=== PATIENT | male | born 1965 | race Caucasian/White ===

== ENCOUNTER → 2017-01-03 | Outpatient (CLI) | payer MEDICARE, OTHER, SELFPAY | PROVIDERS: Visit Provider Internal Medicine Nephrology | DX: N18.4 Chronic kidney disease, stage 4 (severe) (principal) | CPT/HCPCS: 36415; 80069; 81001; 82306; 82570; 83970; 84155; 85025; 87086 ==

== ENCOUNTER 2017-06-19 11:40 | Observation (INO) | payer MEDICARE, SELFPAY ==
[2017-06-19 11:41] VITALS: BP 132/79; PULSE 104; RESP 20; TEMP 37.8; O2SAT 97; BMI 40.7
--- NOTE | 2017-06-19 11:51 | XR_ITS ---
XR chest 2V Ordering Physician: Louis Gaytan MD Patient Age: 51 years: Male HISTORY: ITS.REASON: CHEST PAIN TECHNIQUE: 2 view chest COMPARISON :July and August 2014 portable CXR. FINDINGS Although I see no prominent consolidation, does appear to be subtle suspect infiltrate the right infrahilar region, as well as several small patchy area just lateral to the right rudy. With lateral film suspect minor infiltrate and/or atelectasis RML & RLL. Also note mild accentuation of markings at the left perihilar region, infrahilar area. Suspect subtle early infiltrate in these regions. Clinical correlation required. Lung Apices appear clear. Normal pulmonary vascularity. Heart upper normal in size. . prominence of the ascending aorta likely account for the the fullness at the right mediastinum. Is there a history of underlying hypertension. This feature is stable since 2015 CXR. Otherwise, in the soft tissues unremarkable No pleural effusions. No CHF The chest wall unremarkable IMPRESSION: 1. Suspect minimal subtle infiltrate RML and RLL.. Also Possible patchy infiltrate just lateral to the right rudy. 2.\Question very subtle left perihilar/infrahilar infiltrate. Subtle coarsening markings left perihilar region compared to prior study
[2017-06-19 12:19] LABS: Basophils % 0.2 % (0.1-2.0); Eosinophils # 0.1 K/mm3 (0.0-0.4); Eosinophils % 0.8 % (0.1-12.0); Hemoglobin 12.3 g/dL (14.1-18.0); Lymphocytes # 0.9 K/mm3 (0.7-4.5); Lymphocytes % 6.1 K/mm3 (10-50); Mean Corpuscular HGB Conc 33.2 g/dL (31.8-35.4); Mean Corpuscular Hemoglobin 30.1 pg (27.0-31.2); Mean Corpuscular Volume 90.9 fl (80-94); Mean Platelet Volume 8.6 fl (7.4-10.4); Monocytes # 0.5 K/mm3 (0.1-1.0); Monocytes % 3.6 % (1.7-9.3); Neutrophils # 12.4 K/mm3 (1.8-7.8); Neutrophils % 89.3 % (37.0-80.0); Platelet Count 176 K/mm3 (142-424); Red Blood Count 4.07 M/mm3 (4.60-6.20); Red Cell Distribution Width 12.8 % (11.5-17.5); White Blood Count 13.9 K/mm3 (4.8-10.8)
--- NOTE | 2017-06-19 12:20 | HMH.EDCP ---
ED Disposition Clinical Impression: Chronic kidney disease (CKD) Qualifiers: Chronic kidney disease stage: stage 4 (severe) Qualified Code(s): N18.4 - Chronic kidney disease, stage 4 (severe) Chest pain Qualifiers: Chest pain type: precordial pain Qualified Code(s): R07.2 - Precordial pain CAP (community acquired pneumonia) Qualifiers: Laterality: right Lung location: lower lobe of lung Qualified Code(s): J18.1 - Lobar pneumonia, unspecified organism Disposition: Admitted As Inpatient Condition on Discharge: Good - Critical Care Critical Care Time: No Attestation: On 06/19/17, the high probability of a clinically significant, sudden or life threatening deterioration of the following system(s) required my full and direct attention, intervention and personal management. The time I documented below is in addition to time spent performing reported procedures but includes the following listed in this critical care notation. Medical Decision Making Vital Signs: 06/19/17 11:41 06/19/17 13:15 Temperature 100.1 F H 102.9 F H Temperature Source Oral Oral Pulse Rate [Right Brachial] 104 H 110 H Respiratory Rate 20 20 Blood Pressure [Right Arm] 132/79 138/80 Blood Pressure Mean [Right Arm] 96 99 Blood Pressure Source [Right Arm] Automatic Cuff Blood Pressure Position [Right Arm] Supine Sitting 02 Sat by Pulse Oximetry 97 98 Oxygen Delivery Method Room Air Room Air - Lab Data Lab results reviewed: Yes: I reviewed the patient's lab results. Lab Results 06/19/17 11:55: WBC 13.9 H, RBC 4.07 L, Hgb 12.3 L, Hct 37.0 L, MCV 90.9, MCH 30.1, MCHC 33.2, RDW 12.8, Plt Count 176, MPV 8.6, Neut % (Auto) 89.3 H, Lymph % (Auto) 6.1 L, [place] % (Auto) 3.6, Eos % (Auto) 0.8, Baso % (Auto) 0.2, Neut # (Auto) 12.4 H, Lymph # (Auto) 0.9, [place] # (Auto) 0.5, Eos # (Auto) 0.1, Baso # (Auto) 0.0, Total Counted 100, Neutrophils % (Manual) 93 H, Lymphocytes % (Manual) 4 L, Monocytes % (Manual) 2, Eosinophils % (Manual) 1, Platelet Estimate Normal, RBC Morphology Normal 06/19/17 11:55: Sodium 140, Potassium 5.0, Chloride 105, Carbon Dioxide 27, Anion Gap 13.0, BUN 33 H, Creatinine 2.43 H, Estimated Creat Clear 70, Estimated GFR 28 L, Est GFR ( Amer) 34 L, Glucose 331 H, Calcium 8.7, Total Bilirubin 0.3, AST 11 L, ALT 25, Alkaline Phosphatase 118 H, Total Creatine Kinase 126, CK-MB (CK-2) 1.7, CK-MB (CK-2) Rel Index 1.3, Troponin I < 0.02, Total Protein 6.9, Albumin 3.2 L, Globulin 3.7 H, Albumin/Globulin Ratio 0.9 L 06/19/17 11:55: Influenza Type A Ag Negative, Influenza Type B Ag Negative 06/19/17 11:55: PT 9.8, INR 0.91 Result diagrams: 06/19/17 11:55 06/19/17 11:55 Orders (Tests/Meds): ED MEDICATIONS Generic Name Dose Route Start Last Admin Trade Name Freq PRN Reason Stop Dose Admin Azithromycin 500 mg/ Sodium 250 mls @ 250 mls/hr 06/19/17 14:15 Chloride IV 07/19/17 14:14 Q24H JALEN Protocol Ceftriaxone Sodium 1 gm/ 50 mls @ 100 mls/hr 06/19/17 14:15 Sodium Chloride IV 07/19/17 14:14 Q24H JALEN Discontinued Medications Generic Name Dose Route Start Last Admin Trade Name Freq PRN Reason Stop Dose Admin Acetaminophen 650 mg 06/19/17 13:10 06/19/17 13:18 Acetaminophen 325mg Tab PO 06/19/17 13:11 650 mg ONCE ONE Administration ORDERS Category Date Time Status XR chest 2V Stat Exams 06/19/17 11:51 Taken Upper Respiratory Panel, PCR Stat Lab 06/19/17 13:12 Received - Radiology Data #1 Image(s): Chest Image Reviewed: Yes I reviewed the patient's radiology image Preliminary Findings: Abnormal - ECG Data Tracing #1 I reviewed this ECG and interpreted as documented below: Ischemic changes: non-specific ST-T wave changes - Physician Consults Physician Consulted: tobi Reason -: Admission - Yaron Inquiry Pt receiving controlled substance: No Chest Pain HPI - General Chief Complaint: Chest Pain Stated Complaint: CHEST PAIN Time Seen by
[2017-06-19 12:23] LABS: MANUAL DIFFERENTIAL MANUAL DIFFERENTIAL (MANUAL DIFF)
[2017-06-19 12:30] LABS: INR 0.91 (0.9-1.1); Prothrombin Time 9.8 seconds (9.4-11.8)
[2017-06-19 12:43] LABS: Eosinophils % 1 % (0-3); Lymphocytes % 4 % (10-50); Monocytes % 2 % (2-9); Neutrophils % 93 % (42-76); Platelet Estimate Normal; RBC Morphology Normal; Total Cells Counted 100
[2017-06-19 12:58] LABS: Alanine Aminotransferase 25 U/L (12-78); Albumin Level 3.2 gm/dL (3.4-5.0); Albumin/Globulin Ratio 0.9 (1.1-1.8); Alkaline Phosphatase 118 U/L (46-116); Aspartate Amino Transferase 11 U/L (15-37); Bilirubin,Total 0.3 mg/dL (0.2-1.0); Blood Urea Nitrogen 33 mg/dL (7-18); CKMB Relative Index 1.3 U/L (0-4.0); Calcium 8.7 mg/dL (8.5-10.1); Carbon Dioxide 27 mmol/L (21.0-32.0); Chloride 105 mmol/L (98-107); Creatine Kinase 126 U/L (39-308); Creatine Kinase MB 1.7 mg/ml (0.0-3.6); Creatinine Clearance Estimated 70 mL/min (0-300); Creatinine,Serum 2.43 mg/dL (0.70-1.30); Estimated Glomerular Filt Rate 28 ml/min (>60); GFR (African American) 34 ML/MIN (>60); Globulin 3.7 gm/dl (1.3-3.2); Glucose 331 mg/dL (74-106); Sodium 140 mmol/L (136-145); Total Protein,Serum 6.9 gm/dL (6.4-8.2); Troponin I < 0.02 ng/ml (0.00-0.06)
[2017-06-19 13:15] VITALS: BP 138/80; PULSE 110; RESP 20; TEMP 39.4; O2SAT 98
[2017-06-19 13:17] LABS: Adenovirus,PCR Not Detected (NotDetected); Bordetella Pertussis Not Detected (NotDetected); Chlamydophila Pneumoniae, PCR Not Detected (NotDetected); Coronavirus 229E Not Detected (NotDetected); Coronavirus NL63 Not Detected (NotDetected); Coronavirus OC43 Not Detected (NotDetected); Coronovirus HKU1,PCR Not Detected (NotDetected); Human Metapneumovirus Not Detected (NotDetected); Influenza A, PCR Not Detected (NotDetected); Influenza AH1, 2009 Not Detected (NotDetected); Influenza AH1, PCR Not Detected (NotDetected); Influenza AH3,PCR Not Detected (NotDetected); Influenza B, PCR Not Detected (NotDetected); Mycoplasma Pneumoniae, PCR Not Detected (NotDected); Parainfluenza 1, PCR Not Detected (NotDetected); Parainfluenza 2, PCR Not Detected (NotDetected); Parainfluenza 3, PCR Not Detected (NotDetected); Parainfluenza 4, PCR Not Detected (NotDetected); Respiratory Syncytial Virus Not Detected (NotDetected); Rhinovirus/Enterovirus Not Detected (NotDetected)
[2017-06-19 16:05] VITALS: BMI 41.2
[2017-06-19 16:06] VITALS: BP 115/73; PULSE 125; RESP 22; TEMP 38.4; O2SAT 95
--- NOTE | 2017-06-19 16:10 | HMH.HP ---
*Admission Date: 06/19/17 <Whitney Garcia 06/19/17 17:09> *Chief complaint: Chest pain <Whitney Garcia 06/19/17 17:09> *History of present illness: Mr Madden is a 51 year old male with a history of Type 2 DM, DVT, CAD, dilated cardiomyopathy, HTN, Stage 4 CKD, hyperlipidemia and Charcot's joint who presented to [facility] via private vechicle after experiencing mid sternal to right sided severe chest pain about 12 noon today. He was SOB, nauseated and did vomit. He had palpitations as well. The discomfort eased after tylenol and Zofran. He continues to feel nauseated but the pain is much improved. He is restless, thirsty, and generally miserable. He did have a fever of 102 and has received Tylenol for this. He has been started on Zithromax and Ceftin. To note : patient was instructed not to take his Coumadin after experiencing a bleed in the left eye. He did have eye surgery where the blood was aspirated and has a FU appt. He states he has been taking all other meds. He sees cardiology on a regular and Kenny Portillo has been to see him today in the ER. <Whitney Garcia 06/19/17 17:09> [facility] History Medical History: Reports:: Atherosclerotic Heart Disease, BPH, Cardiomyopathy, Congestive Heart Failure, Coronary Artery Disease, Deep Vein Thrombosis, Diabetes Mellitus Type 2, Gastroesophageal Reflux Disease(GERD), Hyperlipidemia, Hypertension, Myocardial Infarction <Whitney Garcia 06/19/17 17:09> Comment: Charcot's joint; recent left eye hemorrhage <Whitney Garcia 06/19/17 17:09> Laterality Cases: Right: Other <Whitney Garcia 06/19/17 17:09> Fractures: No <Whtiney Garcia 06/19/17 17:09> Comment: Orchiectomy; Amputation of the left middle finger 05/03/2012; multiple debridemenst of sacral decubitus; extensive right foot surgery I&D with bone scrapings <Whitney Garcia 06/19/17 17:09> - *Social History Smoking Status: Never smoker <Whitney Garcia - 01/29/18 17:09> Alcohol Intake: never <Whitney Garcia 06/19/17 17:09> Alcohol Intake Frequency:: other <Whitney Garcia 06/19/17 17:09> - Psychiatric History Expresses thoughts of harming self/others: None <Whitney Garcia 06/19/17 17:09> Suicide Plan Description: No Plan <Whitney Garcia 06/19/17 17:09> *Family Hx:: Diabetes, Coronary Artery Disease <Whitney Garcia 06/19/17 17:09> Review of Systems - Constitutional Reports body ache(s), Reports chills, Reports fever(s), Denies headache(s) <[facility] 06/19/17 17:09> - Eyes Comments: hemorrage in the left eye <Kandi Garciahy 06/19/17 17:09> - ENT Reports dry mouth, Reports headache(s), Denies dizziness, Denies ear pain, Denies sore throat, Denies dizziness <[facility] 06/19/17 17:09> - *Cardiovascular Reports chest pain, Reports chest pain at rest <Kandi Garciahy 06/19/17 17:09> - *Respiratory Reports cough, Reports shortness of breath <Kandi Garciahy 06/19/17 17:09> - *Gastrointestinal Denies abdominal pain, Denies change in bowel habits, Denies constipation <Kandi Garciahy 06/19/17 17:09> - *Genitourinary Reports urinary urgency <Kandi Garciahy 06/19/17 17:09> - *Musculoskeletal Reports abnormal walking <Kandi Garciahy 06/19/17 17:09> - Integumentary/Breasts Comments: discoloration of left side of face <[facility] 06/19/17 17:09> - *Neurologic Denies dizziness, Denies seizure-like activity <Kandi Garciahy 06/19/17 17:09> Meds Home Medications Medication Instructions Recorded Confirmed Type aspirin 81 mg tablet,delayed 81 mg PO QDAY 05/23/17 06/19/17 History release carvedilol 25 mg tablet 12.5 mg PO BID 05/23/17 06/19/17 History cholecalciferol (vitamin D3) 1,000 1,000 unit PO DAILY cap 05/23/17 06/19/17 History unit capsule clopidogrel 75 mg tablet 75 mg PO QDAY 05/23/17 06/19/17 History furosemide 40 mg tablet 40 mg PO QDAY 05/23/17 06/19/17 History gabapentin 300 mg capsule 300 mg PO TID 05/23/17 06/19/17 History insulin lispro 100 unit/mL 1
--- NOTE | 2017-06-19 16:21 | P.HP_ITS ---
*Admission Date: 06/19/17 <Whitney Garcia 06/19/17 17:09> *Chief complaint: Chest pain <Whitney Garcia 06/19/17 17:09> *History of present illness: Mr Madden is a 51 year old male with a history of Type 2 DM, DVT, CAD, dilated cardiomyopathy, HTN, Stage 4 CKD, hyperlipidemia and Charcot's joint who presented to [facility] via private vechicle after experiencing mid sternal to right sided severe chest pain about 12 noon today. He was SOB, nauseated and did vomit. He had palpitations as well. The discomfort eased after tylenol and Zofran. He continues to feel nauseated but the pain is much improved. He is restless, thirsty, and generally miserable. He did have a fever of 102 and has received Tylenol for this. He has been started on Zithromax and Ceftin. To note : patient was instructed not to take his Coumadin after experiencing a bleed in the left eye. He did have eye surgery where the blood was aspirated and has a FU appt. He states he has been taking all other meds. He sees cardiology on a regular and Kenny Portillo has been to see him today in the ER. <Whitney Garcia 06/19/17 17:09> [facility] History Medical History: Reports:: Atherosclerotic Heart Disease, BPH, Cardiomyopathy, Congestive Heart Failure, Coronary Artery Disease, Deep Vein Thrombosis, Diabetes Mellitus Type 2, Gastroesophageal Reflux Disease(GERD), Hyperlipidemia , Hypertension, Myocardial Infarction <Whitney Garcia 06/19/17 17:09> Comment: Charcot's joint; recent left eye hemorrhage <Whitney Garcia 17:09> Laterality Cases: Right: Other <Whitney Garcia 06/19/17 17:09> Fractures: No <Whitney Garcia 06/19/17 17:09> Comment: Orchiectomy; Amputation of the left middle finger 05/03/2012; multiple debridemenst of sacral decubitus; extensive right foot surgery I&D with bone scrapings <Whitney Garcia 06/19/17 17:09> - *Social History Smoking Status: Never smoker <Whitney Garcia - 01/29/18 17:09> Alcohol Intake: never <Whitney Garcia 06/19/17 17:09> Alcohol Intake Frequency:: other <Whitney Garcia 06/19/17 17:09> - Psychiatric History Expresses thoughts of harming self/others: None <Whitney Garcia 06/19/17 17: 09> Suicide Plan Description: No Plan <Whitney Garcia 06/19/17 17:09> *Family Hx:: Diabetes, Coronary Artery Disease <Whitney Garcia 06/19/17 17:09 > Review of Systems - Constitutional Reports body ache(s), Reports chills, Reports fever(s), Denies headache(s) < Whitney Garcia 06/19/17 17:09> - Eyes Comments: hemorrage in the left eye <Kandi Garciahy 06/19/17 17:09> - ENT Reports dry mouth, Reports headache(s), Denies dizziness, Denies ear pain, Denies sore throat, Denies dizziness <[facility] 06/19/17 17:09> - *Cardiovascular Reports chest pain, Reports chest pain at rest <Kandi Garciahy 06/19/17 17:09 > - *Respiratory Reports cough, Reports shortness of breath <Kandi Garciahy 06/19/17 17:09> - *Gastrointestinal Denies abdominal pain, Denies change in bowel habits, Denies constipation < Kandi Garciahy 06/19/17 17:09> - *Genitourinary Reports urinary urgency <Kandi Garciahy 06/19/17 17:09> - *Musculoskeletal Reports abnormal walking <Kandi Garciahy 06/19/17 17:09> - Integumentary/Breasts Comments: discoloration of left side of face <[facility] 06/19/17 17:09> - *Neurologic Denies dizziness, Denies seizure-like activity <Kandi Garciahy 06/19/17 17:09 > Meds Home Medications Medication Instructions Recorded Confirmed Type aspirin 81 mg tablet,delayed 81 mg PO QDAY 05/23/17 06/19/17 History release
[2017-06-19 18:58] VITALS: O2SAT 97
[2017-06-19 20:00] VITALS: BP 145/93; PULSE 110; TEMP 39.3; O2SAT 94
--- NOTE | 2017-06-19 21:19 | PC.NURSE ---
reported patients temp. to the nurse
[2017-06-19 22:20] VITALS: PULSE 105; PULSE 107
[2017-06-20] VITALS (9 sets, daily range): BP systolic 126–138; BP diastolic 63–72; PULSE 83–106; RESP 18–20; TEMP 36.7–37.2; O2SAT 91
[2017-06-20 04:39] LABS: POC Glucose,Bedside 360 mg/dL
[2017-06-20 04:39] LABS: POC Glucose,Bedside 266 mg/dL
--- NOTE | 2017-06-20 05:02 | PC.NURSE ---
PATIENT HAS HAD A FEVER MOST OF THIS SHIFT. TYLENOL GIVEN APPROXIMATELY Q2H. TEMP NEVER WENT BELOW 101. BUT NOT ABOVE 102.8. ICE PACK APPLIED BEHIND NECK AND UNDER ARMPITS AND TEMP DECREASED IN ROOM. PATIENT ALERT AND ABLE TO ANSWER QUESTIONS. MOTHER AT BEDSIDE. NO ACUTE CHANGES SO FAR THIS SHIFT. WILL CONTINUE TO MONITOR. CALL LIGHT IN REACH.
[2017-06-20 07:24] LABS: Basophils # 0.1 K/mm3 (0-0.2); Basophils % 0.3 % (0.1-2.0); Eosinophils # 0.1 K/mm3 (0.0-0.4); Eosinophils % 0.3 % (0.1-12.0); Hematocrit 33.4 % (42.0-52.0); Lymphocytes # 1.6 K/mm3 (0.7-4.5); Lymphocytes % 8.7 K/mm3 (10-50); Mean Corpuscular HGB Conc 32.6 g/dL (31.8-35.4); Mean Corpuscular Volume 91.9 fl (80-94); Mean Platelet Volume 8.5 fl (7.4-10.4); Monocytes # 0.6 K/mm3 (0.1-1.0); Monocytes % 3.3 % (1.7-9.3); Neutrophils # 16.1 K/mm3 (1.8-7.8); Neutrophils % 87.4 % (37.0-80.0); Platelet Count 158 K/mm3 (142-424); Red Blood Count 3.63 M/mm3 (4.60-6.20); Red Cell Distribution Width 12.9 % (11.5-17.5); White Blood Count 18.4 K/mm3 (4.8-10.8)
[2017-06-20 07:28] LABS: Anion Gap 12.4 mEq/L (5-15); Blood Urea Nitrogen 40 mg/dL (7-18); Carbon Dioxide 25 mmol/L (21.0-32.0); Chloride 107 mmol/L (98-107); Creatinine Clearance Estimated 54 mL/min (0-300); Creatinine,Serum 3.23 mg/dL (0.70-1.30); Estimated Glomerular Filt Rate 20 ml/min (>60); GFR (African American) 25 ML/MIN (>60); Glucose 240 mg/dL (74-106); INR 1.01 (0.9-1.1); Potassium 4.4 mmoL/L (3.5-5.1); Prothrombin Time 10.9 seconds (9.4-11.8); Sodium 140 mmol/L (136-145)
[2017-06-20 07:33] LABS: MANUAL DIFFERENTIAL MANUAL DIFFERENTIAL (MANUAL DIFF)
--- NOTE | 2017-06-20 08:45 | HMH.ACPN2 ---
Internal Medicine - PN: Subj *Date: 06/20/17 *Time: 11:39 Interval history: Patient had fever until around 4 am this morning, has had little to no UOP. Exam Vital signs and Labs for Last 24 Hours: Temp Pulse Resp BP Pulse Ox 98.1 F 93 H 20 135/66 91 L 06/20/17 04:00 06/20/17 06:01 06/20/17 04:00 06/20/17 04:00 06/20/17 04:00 Laboratory Results - last 24 hr 06/19/17 17:36: POC Glucose 360 06/19/17 20:30: POC Glucose 266 06/20/17 06:50: PT 10.9, INR 1.01 06/20/17 06:50: Sodium 140, Potassium 4.4, Chloride 107, Carbon Dioxide 25, Anion Gap 12.4, BUN 40 H, Creatinine 3.23 H D, Estimated Creat Clear 54, Estimated GFR 20 L, Est GFR ( Amer) 25 L D, Glucose 240 H D 06/20/17 07:00: WBC 18.4 H D, RBC 3.63 L, Hct 33.4 L, MCV 91.9, MCH 30.0, MCHC 32.6, RDW 12.9, Plt Count 158, MPV 8.5, Neut % (Auto) 87.4 H, Lymph % (Auto) 8.7 L, [place] % (Auto) 3.3, Eos % (Auto) 0.3, Baso % (Auto) 0.3, Neut # (Auto) 16.1 H, Lymph # (Auto) 1.6, [place] # (Auto) 0.6, Eos # (Auto) 0.1, Baso # (Auto) 0.1 Vital Signs Temp Pulse Pulse Resp BP Pulse Ox 06/20/17 06:01 91 H 06/20/17 04:00 98.1 F 106 H 20 135/66 91 L 06/19/17 22:20 105 H 06/19/17 20:00 102.8 F H 110 H 145/93 94 L 06/19/17 18:58 97 06/19/17 16:06 101.2 F H 125 H 22 115/73 95 06/19/17 13:15 102.9 F H 110 H 20 138/80 98 06/19/17 11:41 100.1 F H 104 H 20 132/79 97 Intake and Output 06/19/17 06/20/17 06/20/17 19:59 03:59 11:59 Intake Total 1000 / 1000 1398 / 1398 Balance 1000 / 1000 1398 / 1398 Intake: Intake, Oral Amount 1000 / 1000 240 / 240 Intake, Total IV Amount 1158 / 1158 Ceftriaxone Sodium 1 gm In 0.9 1158 / 1158 % Sodium Chloride 50 ml @ 100 mls/hr IV DAILY [facility] Rx#: [id number] Other: Number of Voids 0 Weight 312 lb 9 oz Patient Weight 06/20/17 11:59 Weight 312 lb 9 oz I & O for Last 24 hours: Intake & Output 06/17/17 06/18/17 06/19/17 06/20/17 11:59 11:59 11:59 11:59 Intake Total 2398 / 2398 Balance 2398 / 2398 Weight 312 lb 9 oz - Constitutional no acute distress (sleeping) - *Routine Respiratory Exam Present: diminished air movement (in bases, clear anteriorly) - *Routine Cardiovascular Exam Present: RRR, tachycardia Assessment and Plan (1) Acute febrile illness Current visit: Yes Status: Acute Category: Medical Code(s): R50.9 - Fever, unspecified (2) CAP (community acquired pneumonia) Current visit: Yes Status: Acute Qualifiers: Laterality: right Lung location: lower lobe of lung Qualified Code(s): J18.1 - Lobar pneumonia, unspecified organism Category: Medical Code(s): J18.9 - Pneumonia, unspecified organism (3) Type 2 diabetes mellitus Current visit: Yes Status: Chronic Category: Medical Code(s): E11.9 - Type 2 diabetes mellitus without complications (4) HTN (hypertension) Current visit: Yes Status: Chronic Category: Medical Code(s): I10 - Essential (primary) hypertension (5) Chest pain Current visit: Yes Status: Acute Qualifiers: Chest pain type: precordial pain Qualified Code(s): R07.2 - Precordial pain Category: Medical Code(s): R07.9 - Chest pain, unspecified (6) Chronic kidney disease (CKD) Current visit: Yes Status: Chronic Qualifiers: Chronic kidney disease stage: stage 4 (severe) Qualified Code(s): N18.4 - Chronic kidney disease, stage 4 (severe) Category: Medical Code(s): N18.9 - Chronic kidney disease, unspecified (7) CAD (coronary artery disease) Current visit: No Status: Chronic Qualifiers: Coronary Disease-Associated Artery/Lesion type: [place] artery [place] vs. transplanted heart: [place] heart Associated angina: without angina Qualified Code(s): I25.10 - Atherosclerotic heart disease of [place] coronary artery without angina pectoris Category: Medical Code(s): I25.10 - Atheroscleroti
--- NOTE | 2017-06-20 08:48 | P.PN_ITS ---
Internal Medicine - PN: Subj *Date: 06/20/17 *Time: 11:39 Interval history: Patient had fever until around 4 am this morning, has had little to no UOP. Exam Vital signs and Labs for Last 24 Hours: Temp Pulse Resp BP Pulse Ox 98.1 F 93 H 20 135/66 91 L 06/20/17 04:00 06/20/17 06:01 06/20/17 04:00 06/20/17 04:00 06/20/17 04:00 Laboratory Results - last 24 hr 06/19/17 17:36: POC Glucose 360 06/19/17 20:30: POC Glucose 266 06/20/17 06:50: PT 10.9, INR 1.01 06/20/17 06:50: Sodium 140, Potassium 4.4, Chloride 107, Carbon Dioxide 25, Anion Gap 12.4, BUN 40 H, Creatinine 3.23 H D, Estimated Creat Clear 54, Estimated GFR 20 L, Est GFR ( Amer) 25 L D, Glucose 240 H D 06/20/17 07:00: WBC 18.4 H D, RBC 3.63 L, Hct 33.4 L, MCV 91.9, MCH 30.0, MCHC 32.6, RDW 12.9, Plt Count 158, MPV 8.5, Neut % (Auto) 87.4 H, Lymph % (Auto) 8.7 L, [place] % (Auto) 3.3, Eos % (Auto) 0.3, Baso % (Auto) 0.3, Neut # (Auto) 16.1 H, Lymph # (Auto) 1.6, [place] # (Auto) 0.6, Eos # (Auto) 0.1, Baso # (Auto) 0.1 Vital Signs Temp Pulse Pulse Resp BP Pulse Ox 06/20/17 06:01 91 H 06/20/17 04:00 98.1 F 106 H 20 135/66 91 L 06/19/17 22:20 105 H 06/19/17 20:00 102.8 F H 110 H 145/93 94 L 06/19/17 18:58 97 06/19/17 16:06 101.2 F H 125 H 22 115/73 95 06/19/17 13:15 102.9 F H 110 H 20 138/80 98 06/19/17 11:41 100.1 F H 104 H 20 132/79 97 Intake and Output 06/19/17 06/20/17 06/20/17 19:59 03:59 11:59 Intake Total 1000 / 1000 1398 / 1398 Balance 1000 / 1000 1398 / 1398 Intake: Intake, Oral Amount 1000 / 1000 240 / 240 Intake, Total IV Amount 1158 / 1158 Ceftriaxone Sodium 1 gm In 0.9 1158 / 1158 % Sodium Chloride 50 ml @ 100 mls/hr IV DAILY [facility] Rx#: [id number] Other: Number of Voids 0 Weight 312 lb 9 oz Patient Weight 06/20/17 11:59 Weight 312 lb 9 oz I & O for Last 24 hours: Intake & Output 06/17/17 06/18/17 06/19/17 06/20/17 11:59 11:59 11:59 11:59 Intake Total 2398 / 2398 Balance 2398 / 2398 Weight 312 lb 9 oz - Constitutional no acute distress (sleeping) - *Routine Respiratory Exam Present: diminished air movement (in bases, clear anteriorly) - *Routine Cardiovascular Exam Present: RRR, tachycardia Assessment and Plan (1) Acute febrile illness Current visit: Yes Status: Acute Category: Medical Code(s): R50.9 - Fever , unspecified (2) CAP (community acquired pneumonia) Current visit: Yes Status: Acute Qualifiers: Laterality: right Lung location: lower lobe of lung Qualified Code(s): J18.1 - Lobar pneumonia, unspecified organism Category: Medical Code(s): J18.9 - Pneumonia, unspecified organism (3) Type 2 diabetes mellitus Current visit: Yes Status: Chronic Category: Medical Code(s): E11.9 - Type 2 diabetes mellitus without complications (4) HTN (hypertension) Current visit: Yes Status: Chronic Category: Medical Code(s): I10 - Essential (primary) hypertension (5) Chest pain Current visit: Yes Status: Acute Qualifiers: Chest pain type: precordial pain Qualified Code(s): R07.2 - Precordial pain Category: Medical Co
--- NOTE | 2017-06-20 09:30 | P.CONPHA_ITS ---
[facility] Pharmacy VTE Monitoring - Patient Demographics Admission date: 06/19/17 Report Date: 06/20/17 Time: 09:29 Allergies/Adverse Reactions: Patient Allergies Sulfa (Sulfonamide Antibiotics) Allergy (Unknown, Verified 06/19/17 13:18) Height: 1.85 m Weight: 141.776 kg Patient Problems: Current Active Problems Chest pain (Acute) CAP (community acquired pneumonia) (Acute) Type 2 diabetes mellitus (Chronic) HTN (hypertension) (Chronic) Acute febrile illness (Acute) Non-compliance (Acute) Subtherapeutic international normalized ratio (INR) (Acute) Chronic kidney disease (CKD) (Chronic) - VTE Risk Labs: VTE Related Lab Results Hgb 12.3 g/dL (14.1-18.0) L 06/19/17 11:55 Hct 33.4 % (42.0-52.0) L 06/20/17 07:00 Plt Count 158 K/mm3 (142-424) 06/20/17 07:00 PT 10.9 seconds (9.4-11.8) 06/20/17 06:50 INR 1.01 (0.9-1.1) 06/20/17 06:50 BUN 40 mg/dL (7-18) H 06/20/17 06:50 Creatinine 3.23 mg/dL (0.70-1.30) H D 06/20/17 06:50 Estimated Creat Clear 54 mL/min (0-300) 06/20/17 06:50 VTE Score: 5 VTE Risk Level: Low Risk - Prophylaxis VTE Prophylaxis Ordered?: Yes Types of VTE Prophylaxis: TEDS Knee High, Pharmacological Location of Applied Device: Bilateral Lower Extremeties Pharmacologic Type: Enoxaparin - VTE Diagnosis Confirmed Treatment or plan recommended: Continue Current Treatment
--- NOTE | 2017-06-20 10:27 | PC.NURSE ---
called dr britton at this time to verify ns @250ml/hr for kardex sats LR @100 and mar shows that the ns @ 250 is charted as 100ml/hr md states fluids are to be running at 250ml.hr
[2017-06-20 10:44] LABS: Lymphocytes % 6 % (10-50); Monocytes % 2 % (2-9); Neutrophils % 86 % (42-76); Platelet Estimate Normal; Total Cells Counted 100
[2017-06-20 10:50] LABS: Hemoglobin 10.9 g/dL (14.1-18.0)
[2017-06-20 11:57] LABS: POC Glucose,Bedside 219 mg/dL
--- NOTE | 2017-06-20 14:57 | PC.NURSE ---
Addendum entered by Aranza Cooley RN 06/20/17 15:01: heart rhythm is regular. Original Note: pt awakens from sleep and reports that it feels like his heart is racing. vs are as follows: BP- 115/52. pulse- 104-107bpm, RR-22, o2 sat- 94% and temp- 99.3 states the feeling has stopped now.
--- NOTE | 2017-06-20 15:21 | PC.NURSE ---
PT STABLE. REPORTS FEELING BAD. LOW GRADE FEVER AT THIS TIME. CONSTANTLY ASKS FOR CHEESEBURGERS AND SANDWICHES AND JELLO. EDUCATED ON THE IMPORTANCE OF STICKING TO A DIABETIC DIET. REMINDED THAT HE IS ON A STRICT CALORIE COUNT DIET HERE AT THE HOSPITAL.
[2017-06-20 21:56] LABS: POC Glucose,Bedside 307 mg/dL
--- NOTE | 2017-06-20 22:11 | PC.NURSE ---
pt told nurse he was going to take bath soon at 22:00
[2017-06-21] VITALS (9 sets, daily range): BP systolic 142–180; BP diastolic 65–93; PULSE 82–94; RESP 18–22; TEMP 36.6–36.9; O2SAT 92–96; BMI 43.9
--- NOTE | 2017-06-21 00:27 | PC.NURSE ---
pt has xavier hose off at this time
[2017-06-21 01:46] LABS: POC Glucose,Bedside 389 mg/dL
[2017-06-21 01:46] LABS: POC Glucose,Bedside 270 mg/dL
--- NOTE | 2017-06-21 04:03 | PC.NURSE ---
PATIENT LAYING IN BED RESTING AT THIS TIME. DENIES SOA, STATES STOMACH AND CHEST SORE FROM COUGHING. HAS SOME NAUSEA. RESOLVED WITH ZOFRAN. HAD A BATH THIS SHIFT. IV IS PATENT AND LABELED.LUNGS HAVE FINE CRACKLES IN R BASE. RESP EVEN AND NONLABORED. HAS PANKAJ UP TO RESTROOM SEVERAL TIMES. FAMILY IS IN ROOM. STATES HAS NO NEEDS AT THIS TIME. BED LOCKED IN LOW POSITION, SIDE RALES UP X 2. CALL LIGHT WITHIN REACH.
[2017-06-21 06:59] LABS: POC Glucose,Bedside 216 mg/dL
--- NOTE | 2017-06-21 08:06 | HMH.ACPN2 ---
<María Elena Grijalva - Last Filed: 06/21/17 08:06> Internal Medicine - PN: Subj *Date: 06/21/17 *Time: 08:06 Interval history: States he is feeling slightly better this morning. He still has a cough and is short of breath. He denies any pain. He slept off and on and ate some of his breakfast. States food just does not taste good. Exam Vital signs and Labs for Last 24 Hours: Temp Pulse Resp BP Pulse Ox 98.1 F 94 H 20 159/80 92 L 06/21/17 07:59 06/21/17 07:59 06/21/17 07:59 06/21/17 07:59 06/21/17 07:59 Laboratory Results - last 24 hr 06/20/17 05:33: POC Glucose 219 06/20/17 07:00: Hgb 10.9 L D, Total Counted 100, Neutrophils % (Manual) 86 H, Band Neutrophils % 4.0, Lymphocytes % (Manual) 6 L, Atypical Lymphs % 2.0, Monocytes % (Manual) 2, Platelet Estimate Normal 06/20/17 12:09: POC Glucose 389 06/20/17 17:17: POC Glucose 270 06/20/17 21:15: POC Glucose 307 06/21/17 06:10: POC Glucose 216 I & O for Last 24 hours: Intake & Output 06/18/17 06/19/17 06/20/17 06/21/17 11:59 11:59 11:59 11:59 Intake Total 2758 / 2758 7529 / 7529 Balance 2758 / 2758 7529 / 7529 Weight 312 lb 9 oz 331 lb Microbiology Reports for the Last 24 Hours: Microbiology 06/19/17 17:20 Blood Blood Culture - Preliminary NO GROWTH AFTER 24 HOURS 06/19/17 17:20 Blood Blood Culture - Preliminary NO GROWTH AFTER 24 HOURS - Constitutional no acute distress - *Routine Respiratory Exam Present: rales (right base), wheezes - *Routine Cardiovascular Exam Present: RRR - *Routine Abdominal Exam Present: soft, normoactive bowel sounds. Absent: tenderness - *Routine Extremities Exam Present: edema Assessment and Plan (1) Acute febrile illness Current visit: Yes Status: Acute Category: Medical Code(s): R50.9 - Fever, unspecified (2) CAP (community acquired pneumonia) Current visit: Yes Status: Acute Qualifiers: Laterality: right Lung location: lower lobe of lung Qualified Code(s): J18.1 - Lobar pneumonia, unspecified organism Category: Medical Code(s): J18.9 - Pneumonia, unspecified organism (3) Type 2 diabetes mellitus Current visit: Yes Status: Chronic Category: Medical Code(s): E11.9 - Type 2 diabetes mellitus without complications (4) HTN (hypertension) Current visit: Yes Status: Chronic Category: Medical Code(s): I10 - Essential (primary) hypertension (5) Chest pain Current visit: Yes Status: Acute Qualifiers: Chest pain type: precordial pain Qualified Code(s): R07.2 - Precordial pain Category: Medical Code(s): R07.9 - Chest pain, unspecified (6) Chronic kidney disease (CKD) Current visit: Yes Status: Chronic Qualifiers: Chronic kidney disease stage: stage 4 (severe) Qualified Code(s): N18.4 - Chronic kidney disease, stage 4 (severe) Category: Medical Code(s): N18.9 - Chronic kidney disease, unspecified (7) CAD (coronary artery disease) Current visit: No Status: Chronic Qualifiers: Coronary Disease-Associated Artery/Lesion type: [place] artery [place] vs. transplanted heart: [place] heart Associated angina: without angina Qualified Code(s): I25.10 - Atherosclerotic heart disease of [place] coronary artery without angina pectoris Category: Medical Code(s): I25.10 - Atherosclerotic heart disease of [place] coronary artery without angina pectoris (8) Cardiomyopathy Current visit: No Status: Chronic Qualifiers: Cardiomyopathy type: dilated Qualified Code(s): I42.0 - Dilated cardiomyopathy Category: Medical Code(s): I42.9 - Cardiomyopathy, unspecified (9) Charcot's joint Current visit: No Status: Chronic Category: Medical Code(s): M14.60 - Charcot's joint, unspecified site (10) HHD (hypertensive heart disease) Current visit: No Status: Chronic Qualifiers: Heart failure presence: without heart failure
--- NOTE | 2017-06-21 08:09 | P.PN_ITS ---
<María Elena Grijalva - Last Filed: 06/21/17 08:06> Internal Medicine - PN: Subj *Date: 06/21/17 *Time: 08:06 Interval history: States he is feeling slightly better this morning. He still has a cough and is short of breath. He denies any pain. He slept off and on and ate some of his breakfast. States food just does not taste good. Exam Vital signs and Labs for Last 24 Hours: Temp Pulse Resp BP Pulse Ox 98.1 F 94 H 20 159/80 92 L 06/21/17 07:59 06/21/17 07:59 06/21/17 07:59 06/21/17 07:59 06/21/17 07:59 Laboratory Results - last 24 hr 06/20/17 05:33: POC Glucose 219 06/20/17 07:00: Hgb 10.9 L D, Total Counted 100, Neutrophils % (Manual) 86 H, Band Neutrophils % 4.0, Lymphocytes % (Manual) 6 L, Atypical Lymphs % 2.0, Monocytes % (Manual) 2, Platelet Estimate Normal 06/20/17 12:09: POC Glucose 389 06/20/17 17:17: POC Glucose 270 06/20/17 21:15: POC Glucose 307 06/21/17 06:10: POC Glucose 216 I & O for Last 24 hours: Intake & Output 06/18/17 06/19/17 06/20/17 06/21/17 11:59 11:59 11:59 11:59 Intake Total 2758 / 2758 7529 / 7529 Balance 2758 / 2758 7529 / 7529 Weight 312 lb 9 oz 331 lb Microbiology Reports for the Last 24 Hours: Microbiology 06/19/17 17:20 Blood Blood Culture - Preliminary NO GROWTH AFTER 24 HOURS 06/19/17 17:20 Blood Blood Culture - Preliminary NO GROWTH AFTER 24 HOURS - Constitutional no acute distress - *Routine Respiratory Exam Present: rales (right base), wheezes - *Routine Cardiovascular Exam Present: RRR - *Routine Abdominal Exam Present: soft, normoactive bowel sounds. Absent: tenderness - *Routine Extremities Exam Present: edema Assessment and Plan (1) Acute febrile illness Current visit: Yes Status: Acute Category: Medical Code(s): R50.9 - Fever , unspecified (2) CAP (community acquired pneumonia) Current visit: Yes Status: Acute Qualifiers: Laterality: right Lung location: lower lobe of lung Qualified Code(s): J18.1 - Lobar pneumonia, unspecified organism Category: Medical Code(s): J18.9 - Pneumonia, unspecified organism (3) Type 2 diabetes mellitus Current visit: Yes Status: Chronic Category: Medical Code(s): E11.9 - Type 2 diabetes mellitus without complications (4) HTN (hypertension) Current visit: Yes Status: Chronic Category: Medical Code(s): I10 - Essential (primary) hypertension (5) Chest pain Current visit: Yes Status: Acute Qualifiers: Chest pain type: precordial pain Qualified Code(s): R07.2 - Precordial pain Category: Medical Code(s): R07.9 - Chest pain, unspecified (6) Chronic kidney disease (CKD) Current visit: Yes Status: Chronic Qualifiers: Chronic kidney disease stage: stage 4 (severe) Qualified Code(s): N18.4 - Chronic kidney disease, stage 4 (severe) Category: Medical Code(s): N18.9 - Chronic kidney disease, unspecified (7) CAD (coronary artery disease) Current visit: No Status: Chronic Qualifiers: Coronary Disease-Associated Artery/Lesion type: [place] artery [place] vs. transplanted heart: [place] heart Associated angina: without angina Qualified Code(s): I25.10 - Atherosclerotic heart disease of [place] coronary artery without angina pectoris Category: Medical Code(s): I25.10 - Atherosclerotic heart disease of [place] coronary artery without angina
[2017-06-21 09:23] LABS: Anion Gap 11.3 mEq/L (5-15); Blood Urea Nitrogen 35 mg/dL (7-18); Carbon Dioxide 24 mmol/L (21.0-32.0); Chloride 108 mmol/L (98-107); Creatinine Clearance Estimated 36 mL/min (0-300); Creatinine,Serum 2.73 mg/dL (0.70-1.30); Estimated Glomerular Filt Rate 25 ml/min (>60); GFR (African American) 30 ML/MIN (>60); Glucose 276 mg/dL (74-106); Potassium 4.3 mmoL/L (3.5-5.1); Sodium 139 mmol/L (136-145)
[2017-06-21 11:43] LABS: POC Glucose,Bedside 313 mg/dL
--- NOTE | 2017-06-21 16:01 | PC.NURSE ---
Pt sitting on side of bed, has had complaint of GOMES was given Tylenol to help relieve this symptom. VSS, Ambulated to and from bathroom with no assistance. Sputum is still not been collected due to pt not being able to produce sample. Informed pt that this is still needed and he stated that he hasn't had anything up yet but has specimen cup by bedside when sample can be produced. Call light in reach, will continue to monitor
[2017-06-21 16:35] LABS: POC Glucose,Bedside 291 mg/dL
[2017-06-21 20:52] LABS: POC Glucose,Bedside 252 mg/dL
[2017-06-22] VITALS (8 sets, daily range): BP systolic 153–201; BP diastolic 73–104; PULSE 66–102; RESP 20–22; TEMP 37.2–37.8; O2SAT 93–96
--- NOTE | 2017-06-22 04:58 | PC.NURSE ---
SRNA notified RN of BP of 201/104 right arm sitting, manual BP was obtained in the left arm sitting to be 170/90, upon reassessment 3+ pitting edema noted in the BLE, pt states he feels like his right leg is going to explode, per pt request fluids were stopped at this time.
--- NOTE | 2017-06-22 05:40 | PC.NURSE ---
rn aware of elevated bp, she will recheck manually
[2017-06-22 06:55] LABS: Basophils % 0.3 % (0.1-2.0); Eosinophils # 0.2 K/mm3 (0.0-0.4); Lymphocytes # 1.1 K/mm3 (0.7-4.5); Lymphocytes % 11.8 K/mm3 (10-50); Mean Corpuscular HGB Conc 32.8 g/dL (31.8-35.4); Mean Corpuscular Hemoglobin 30.1 pg (27.0-31.2); Mean Corpuscular Volume 91.8 fl (80-94); Mean Platelet Volume 8.7 fl (7.4-10.4); Monocytes # 0.5 K/mm3 (0.1-1.0); Monocytes % 4.7 % (1.7-9.3); Neutrophils # 7.9 K/mm3 (1.8-7.8); Neutrophils % 81.3 % (37.0-80.0); Platelet Count 150 K/mm3 (142-424); Red Blood Count 3.14 M/mm3 (4.60-6.20); Red Cell Distribution Width 12.8 % (11.5-17.5); White Blood Count 9.7 K/mm3 (4.8-10.8)
[2017-06-22 07:06] LABS: Anion Gap 12.7 mEq/L (5-15); Blood Urea Nitrogen 28 mg/dL (7-18); Carbon Dioxide 22 mmol/L (21.0-32.0); Chloride 109 mmol/L (98-107); Creatinine Clearance Estimated 42 mL/min (0-300); Creatinine,Serum 2.27 mg/dL (0.70-1.30); Estimated Glomerular Filt Rate 30 ml/min (>60); GFR (African American) 37 ML/MIN (>60); Potassium 4.7 mmoL/L (3.5-5.1); Sodium 139 mmol/L (136-145)
[2017-06-22 07:33] LABS: Glucose 201 mg/dL (74-106)
--- NOTE | 2017-06-22 07:33 | PC.NURSE ---
REPORT RECEIVED FROM ASHLEY BEARDEN RN
[2017-06-22 07:43] LABS: Hemoglobin 9.5 g/dL (14.1-18.0)
--- NOTE | 2017-06-22 08:05 | HMH.ACPN2 ---
<María Elena Grijalva - Last Filed: 06/22/17 08:05> Internal Medicine - PN: Subj *Date: 06/22/17 *Time: 08:05 Interval history: Patient states he is not feeling much better today. Still has a cough that is not productive. Still feeling weak. Did not rest well last night. Exam Vital signs and Labs for Last 24 Hours: Temp Pulse Resp BP Pulse Ox 99.2 F 67 22 170/90 94 L 06/22/17 04:00 06/22/17 06:34 06/22/17 04:00 06/22/17 04:58 06/22/17 04:00 Laboratory Results - last 24 hr 06/21/17 08:30: Sodium 139, Potassium 4.3, Chloride 108 H, Carbon Dioxide 24, Anion Gap 11.3, BUN 35 H, Creatinine 2.73 H, Estimated Creat Clear 36, Estimated GFR 25 L, Est GFR ( Amer) 30 L, Glucose 276 H 06/21/17 11:12: POC Glucose 313 06/21/17 16:16: POC Glucose 291 06/21/17 20:14: POC Glucose 252 06/22/17 06:30: WBC 9.7 D, RBC 3.14 L, Hgb 9.5 L, Hct 29.0 L, MCV 91.8, MCH 30.1, MCHC 32.8, RDW 12.8, Plt Count 150, MPV 8.7, Neut % (Auto) 81.3 H, Lymph % (Auto) 11.8, [place] % (Auto) 4.7, Eos % (Auto) 2.0, Baso % (Auto) 0.3, Neut # (Auto) 7.9 H, Lymph # (Auto) 1.1, [place] # (Auto) 0.5, Eos # (Auto) 0.2, Baso # (Auto) 0.0 06/22/17 06:30: Sodium 139, Potassium 4.7, Chloride 109 H, Carbon Dioxide 22, Anion Gap 12.7, BUN 28 H, Creatinine 2.27 H, Estimated Creat Clear 42, Estimated GFR 30 L, Est GFR ( Amer) 37 L D, Glucose 201 H D I & O for Last 24 hours: Intake & Output 06/19/17 06/20/17 06/21/17 06/22/17 11:59 11:59 11:59 11:59 Intake Total 2758 / 2758 7529 / 7529 3103 / 3103 Output Total 100 / 100 Balance 2758 / 2758 7529 / 7529 3003 / 3003 Weight 312 lb 9 oz 331 lb 330 lb 15.997 oz Microbiology Reports for the Last 24 Hours: Microbiology 06/19/17 17:20 Blood Blood Culture - Preliminary NO GROWTH AFTER 48 HOURS 06/19/17 17:20 Blood Blood Culture - Preliminary NO GROWTH AFTER 48 HOURS - Constitutional no acute distress - *Routine Respiratory Exam Present: rales (right base) - *Routine Cardiovascular Exam Present: RRR - *Routine Abdominal Exam Present: soft, normoactive bowel sounds. Absent: tenderness - *Routine Extremities Exam Present: edema Assessment and Plan (1) Acute febrile illness Current visit: Yes Status: Acute Category: Medical Code(s): R50.9 - Fever, unspecified (2) CAP (community acquired pneumonia) Current visit: Yes Status: Acute Qualifiers: Laterality: right Lung location: lower lobe of lung Qualified Code(s): J18.1 - Lobar pneumonia, unspecified organism Category: Medical Code(s): J18.9 - Pneumonia, unspecified organism (3) Type 2 diabetes mellitus Current visit: Yes Status: Chronic Category: Medical Code(s): E11.9 - Type 2 diabetes mellitus without complications (4) HTN (hypertension) Current visit: Yes Status: Chronic Category: Medical Code(s): I10 - Essential (primary) hypertension (5) Chest pain Current visit: Yes Status: Acute Qualifiers: Chest pain type: precordial pain Qualified Code(s): R07.2 - Precordial pain Category: Medical Code(s): R07.9 - Chest pain, unspecified (6) Chronic kidney disease (CKD) Current visit: Yes Status: Chronic Qualifiers: Chronic kidney disease stage: stage 4 (severe) Qualified Code(s): N18.4 - Chronic kidney disease, stage 4 (severe) Category: Medical Code(s): N18.9 - Chronic kidney disease, unspecified (7) CAD (coronary artery disease) Current visit: No Status: Chronic Qualifiers: Coronary Disease-Associated Artery/Lesion type: [place] artery [place] vs. transplanted heart: [place] heart Associated angina: without angina Qualified Code(s): I25.10 - Atherosclerotic heart disease of [place] coronary artery without angina pectoris Category: Medical Code(s): I25.10 - Atherosclerotic heart disease of [place] coronary artery without angina pectoris (8) Cardiomyopathy Current visi
--- NOTE | 2017-06-22 09:33 | PC.NURSE ---
Patient is refusing TEDS, Lovenox, and IV Fluids
--- NOTE | 2017-06-22 10:03 | HMH.ACPN ---
Internal Medicine - PN: Subj *Date: 06/22/17 *Time: 10:03 Exam Vital signs and Labs for Last 24 Hours: Temp Pulse Resp BP Pulse Ox 99.2 F 67 22 170/90 94 L 06/22/17 04:00 06/22/17 06:34 06/22/17 04:00 06/22/17 04:58 06/22/17 04:00 Laboratory Results - last 24 hr 06/21/17 11:12: POC Glucose 313 06/21/17 16:16: POC Glucose 291 06/21/17 20:14: POC Glucose 252 06/22/17 06:30: WBC 9.7 D, RBC 3.14 L, Hgb 9.5 L, Hct 29.0 L, MCV 91.8, MCH 30.1, MCHC 32.8, RDW 12.8, Plt Count 150, MPV 8.7, Neut % (Auto) 81.3 H, Lymph % (Auto) 11.8, [place] % (Auto) 4.7, Eos % (Auto) 2.0, Baso % (Auto) 0.3, Neut # (Auto) 7.9 H, Lymph # (Auto) 1.1, [place] # (Auto) 0.5, Eos # (Auto) 0.2, Baso # (Auto) 0.0 06/22/17 06:30: Sodium 139, Potassium 4.7, Chloride 109 H, Carbon Dioxide 22, Anion Gap 12.7, BUN 28 H, Creatinine 2.27 H, Estimated Creat Clear 42, Estimated GFR 30 L, Est GFR ( Amer) 37 L D, Glucose 201 H D I & O for Last 24 hours: Intake & Output 06/19/17 06/20/17 06/21/17 06/22/17 23:59 23:59 23:59 23:59 Intake Total 1000 / 1000 8 / 2718 7409 / 7409 226 / 226 Output Total 100 / 100 Balance 1000 / 1000 8 / 2718 7309 / 7309 2262 / 2262 Weight 141.776 kg 141.776 kg 150.139 kg Microbiology Reports for the Last 24 Hours: Microbiology 06/19/17 17:20 Blood Blood Culture - Preliminary NO GROWTH AFTER 48 HOURS 06/19/17 17:20 Blood Blood Culture - Preliminary NO GROWTH AFTER 48 HOURS Assessment and Plan (1) Acute febrile illness Current visit: Yes Status: Acute Category: Medical Code(s): R50.9 - Fever, unspecified (2) CAP (community acquired pneumonia) Current visit: Yes Status: Acute Qualifiers: Laterality: right Lung location: lower lobe of lung Qualified Code(s): J18.1 - Lobar pneumonia, unspecified organism Category: Medical Code(s): J18.9 - Pneumonia, unspecified organism (3) Type 2 diabetes mellitus Current visit: Yes Status: Chronic Category: Medical Code(s): E11.9 - Type 2 diabetes mellitus without complications (4) HTN (hypertension) Current visit: Yes Status: Chronic Category: Medical Code(s): I10 - Essential (primary) hypertension (5) Chest pain Current visit: Yes Status: Acute Qualifiers: Chest pain type: precordial pain Qualified Code(s): R07.2 - Precordial pain Category: Medical Code(s): R07.9 - Chest pain, unspecified (6) Chronic kidney disease (CKD) Current visit: Yes Status: Chronic Qualifiers: Chronic kidney disease stage: stage 4 (severe) Qualified Code(s): N18.4 - Chronic kidney disease, stage 4 (severe) Category: Medical Code(s): N18.9 - Chronic kidney disease, unspecified (7) CAD (coronary artery disease) Current visit: No Status: Chronic Qualifiers: Coronary Disease-Associated Artery/Lesion type: [place] artery [place] vs. transplanted heart: [place] heart Associated angina: without angina Qualified Code(s): I25.10 - Atherosclerotic heart disease of [place] coronary artery without angina pectoris Category: Medical Code(s): I25.10 - Atherosclerotic heart disease of [place] coronary artery without angina pectoris (8) Cardiomyopathy Current visit: No Status: Chronic Qualifiers: Cardiomyopathy type: dilated Qualified Code(s): I42.0 - Dilated cardiomyopathy Category: Medical Code(s): I42.9 - Cardiomyopathy, unspecified (9) Charcot's joint Current visit: No Status: Chronic Category: Medical Code(s): M14.60 - Charcot's joint, unspecified site (10) HHD (hypertensive heart disease) Current visit: No Status: Chronic Qualifiers: Heart failure presence: without heart failure Qualified Code(s): I11.9 - Hypertensive heart disease without heart failure Category: Medical Code(s): I11.9 - Hypertensive heart disease without heart failure (11) HLD (hyperlipidemia) Current visit: N
[2017-06-22 14:41] LABS: POC Glucose,Bedside 205 mg/dL
[2017-06-22 16:56] LABS: POC Glucose,Bedside 215 mg/dL
--- NOTE | 2017-06-22 17:33 | PC.NURSE ---
PATIENT HAS BEEN RESTING T/O SHIFT. LOWER LEGS ARE SLIGHTLY LESS EDEMATOUS HOWEVER THEY ARE STILL +3 PITTING. SKIN IS SCALY AND FLAKY. LUNGS HAVE CRACKLES IN BILATERAL BASES. DENIES PAIN AT THIS TIME. A&OX3. PATIENT DID TAKE LOVENOX TODAY BUT STILL REFUSES TEDS AND FLUIDS. CALL LIGHT WITHIN REACH WILL CONTINUE TO MONITOR
--- NOTE | 2017-06-22 19:16 | PC.NURSE ---
REPORT GIVEN TO ASHLEY BEARDEN RN
[2017-06-22 20:48] LABS: POC Glucose,Bedside 252 mg/dL
[2017-06-23] VITALS (9 sets, daily range): BP systolic 116–188; BP diastolic 48–86; PULSE 72–92; RESP 11–20; TEMP 36.6–37.1; O2SAT 93–99
--- NOTE | 2017-06-23 02:00 | PC.NURSE ---
vital signs were obtained from SRNA and documented.
--- NOTE | 2017-06-23 03:23 | PC.NURSE ---
no changes noted from previous assessment, right lower extremity noted to have 3+ pitting edema, left lower extremity noted to have 2+ pitting edema, fluids currently remain off per pt request, fine crackles noted in the bases, pt tolerating room air well, bowel sounds are active, pt tolerating PO fluids and diet well, states nausea and vomiting has stopped today, pt has rested better this shift and is currently resting with eyes closed, no acute distress noted at this time, call light in reach, will continue to monitor.
[2017-06-23 06:41] LABS: POC Glucose,Bedside 209 mg/dL
[2017-06-23 07:19] LABS: Anion Gap 14.8 mEq/L (5-15); Basophils % 0.3 % (0.1-2.0); Blood Urea Nitrogen 28 mg/dL (7-18); Carbon Dioxide 23 mmol/L (21.0-32.0); Chloride 107 mmol/L (98-107); Creatinine Clearance Estimated 42 mL/min (0-300); Creatinine,Serum 2.27 mg/dL (0.70-1.30); Eosinophils # 0.2 K/mm3 (0.0-0.4); Eosinophils % 2.6 % (0.1-12.0); Estimated Glomerular Filt Rate 30 ml/min (>60); GFR (African American) 37 ML/MIN (>60); Glucose 217 mg/dL (74-106); Hematocrit 28.3 % (42.0-52.0); Hemoglobin 9.3 g/dL (14.1-18.0); Lymphocytes % 12.6 K/mm3 (10-50); Mean Corpuscular HGB Conc 32.8 g/dL (31.8-35.4); Mean Corpuscular Hemoglobin 30.1 pg (27.0-31.2); Mean Corpuscular Volume 91.7 fl (80-94); Mean Platelet Volume 8.4 fl (7.4-10.4); Monocytes # 0.4 K/mm3 (0.1-1.0); Monocytes % 4.5 % (1.7-9.3); Neutrophils # 6.4 K/mm3 (1.8-7.8); Platelet Count 161 K/mm3 (142-424); Potassium 4.8 mmoL/L (3.5-5.1); Red Blood Count 3.08 M/mm3 (4.60-6.20); Red Cell Distribution Width 12.8 % (11.5-17.5); Sodium 140 mmol/L (136-145)
--- NOTE | 2017-06-23 08:25 | HMH.ACPN2 ---
<María Elena Grijalva - Last Filed: 06/23/17 08:25> Internal Medicine - PN: Subj *Date: 06/23/17 *Time: 08:25 Interval history: Patient states he feels a little bit better today. Denies any pain. His cough is still not productive. He did rest some last night and ate this morning. Exam Vital signs and Labs for Last 24 Hours: Temp Pulse Resp BP Pulse Ox 98.4 F 91 H 16 158/78 94 L 06/23/17 04:00 06/23/17 06:26 06/23/17 04:00 06/23/17 04:00 06/23/17 04:00 Laboratory Results - last 24 hr 06/22/17 11:57: POC Glucose 205 06/22/17 16:32: POC Glucose 215 06/22/17 20:12: POC Glucose 252 06/23/17 06:15: WBC 8.0, RBC 3.08 L, Hgb 9.3 L, Hct 28.3 L, MCV 91.7, MCH 30.1, MCHC 32.8, RDW 12.8, Plt Count 161, MPV 8.4, Neut % (Auto) 80.0, Lymph % (Auto) 12.6, [place] % (Auto) 4.5, Eos % (Auto) 2.6, Baso % (Auto) 0.3, Neut # (Auto) 6.4, Lymph # (Auto) 1.0, [place] # (Auto) 0.4, Eos # (Auto) 0.2, Baso # (Auto) 0.0 06/23/17 06:15: Sodium 140, Potassium 4.8, Chloride 107, Carbon Dioxide 23, Anion Gap 14.8, BUN 28 H, Creatinine 2.27 H, Estimated Creat Clear 42, Estimated GFR 30 L, Est GFR ( Amer) 37 L, Glucose 217 H 06/23/17 06:24: POC Glucose 209 I & O for Last 24 hours: Intake & Output 06/20/17 06/21/17 06/22/17 06/23/17 11:59 11:59 11:59 11:59 Intake Total 2758 / 2758 7529 / 7529 3463 / 3463 480 / 480 Output Total 100 / 100 1200 / 1200 Balance 2758 / 2758 7529 / 7529 3363 / 3363 -720 / -720 Weight 312 lb 9 oz 331 lb 330 lb 15.997 oz Microbiology Reports for the Last 24 Hours: Microbiology 06/19/17 17:20 Blood Blood Culture - Preliminary NO GROWTH AFTER 72 HOURS 06/19/17 17:20 Blood Blood Culture - Preliminary NO GROWTH AFTER 72 HOURS - Constitutional no acute distress - *Routine Respiratory Exam Present: wheezes (faint). Absent: rales - *Routine Cardiovascular Exam Present: RRR - *Routine Abdominal Exam Present: soft, normoactive bowel sounds. Absent: tenderness - *Routine Extremities Exam Present: edema Assessment and Plan (1) Acute febrile illness Current visit: Yes Status: Acute Category: Medical Code(s): R50.9 - Fever, unspecified (2) CAP (community acquired pneumonia) Current visit: Yes Status: Acute Qualifiers: Laterality: right Lung location: lower lobe of lung Qualified Code(s): J18.1 - Lobar pneumonia, unspecified organism Category: Medical Code(s): J18.9 - Pneumonia, unspecified organism (3) Type 2 diabetes mellitus Current visit: Yes Status: Chronic Category: Medical Code(s): E11.9 - Type 2 diabetes mellitus without complications (4) HTN (hypertension) Current visit: Yes Status: Chronic Category: Medical Code(s): I10 - Essential (primary) hypertension (5) Chest pain Current visit: Yes Status: Acute Qualifiers: Chest pain type: precordial pain Qualified Code(s): R07.2 - Precordial pain Category: Medical Code(s): R07.9 - Chest pain, unspecified (6) Chronic kidney disease (CKD) Current visit: Yes Status: Chronic Qualifiers: Chronic kidney disease stage: stage 4 (severe) Qualified Code(s): N18.4 - Chronic kidney disease, stage 4 (severe) Category: Medical Code(s): N18.9 - Chronic kidney disease, unspecified (7) CAD (coronary artery disease) Current visit: No Status: Chronic Qualifiers: Coronary Disease-Associated Artery/Lesion type: [place] artery [place] vs. transplanted heart: [place] heart Associated angina: without angina Qualified Code(s): I25.10 - Atherosclerotic heart disease of [place] coronary artery without angina pectoris Category: Medical Code(s): I25.10 - Atherosclerotic heart disease of [place] coronary artery without angina pectoris (8) Cardiomyopathy Current visit: No Status: Chronic Qualifiers: Cardiomyopathy type: dilated Qualified Code(s): I42.0 - Dilated cardiomyopathy Category:
--- NOTE | 2017-06-23 09:14 | XR_ITS ---
XR chest 2V HISTORY: Is however, ITS.REASON: Pneumonia ORDERING PHYSICIAN: Bello Davis MD PATIENT AGE: 51 years COMPARISON: 06/19/2017 FINDINGS: There are low lung volumes with accentuation of the markings in the lower lobes and perihilar region with vascular crowding. There remains increased density in the right lung base medially which may be due to atelectasis or infiltrate slightly worse compared to the previous exam. IMPRESSION: Slight increased density right lung base medially which may be due to worsening atelectasis or infiltrate. Vascular crowding is present in the lung bases from poor inspiration as well..
[2017-06-23 12:18] LABS: POC Glucose,Bedside 206 mg/dL
--- NOTE | 2017-06-23 15:50 | DIET.NUTRFU ---
Pt with nausea two days ago, now resolved. He reports he cannot tolerate salads being sent. Will discontinue these. FSBS 205,215,252. 3+ pitting edema lower extremities. PO intakes 75-100% on diabetic, cardiac diet. He continues to complain of blandness of foods. Hot sauce is being provided and he is using this. He does not like Mrs Macdonald. Will send garlic powder to try. encouragement concerning diet provided. Will obtain daily wts.
[2017-06-23 17:28] LABS: POC Glucose,Bedside 222 mg/dL
--- NOTE | 2017-06-23 19:00 | PC.NURSE ---
PT FULL CODE, REPORT FROM SOL.ROSA ISELA
--- NOTE | 2017-06-23 20:25 | PC.NURSE ---
THIS IS A 51 YEAR OLD WHITE MALE THAT PRESENTED TO THE HOSPITAL WITH A DIAGNOSIS OF BRONCHITIS. HE HAS DONE WELL TODAY WITH IV ANTIBIOTICS, HE HAS AMBULATED IN THE ROOM AND HAS NO COMPLAINTS OF PAIN OR DISCOMFORT. HE IS A DIABETIC AND HAS BEEN PROVIDED COVERAGE ON A SLIDING SCALE. LUNG ASSESSMENT REVEALS BILATERAL CRACKLES IN THE BASES. HE CONTINUES TO PRESENT WITH BILATERAL 3+ PITTING EDEMA. ENCOURAGED HIM TO ELEVATE LEGS WHILE IN BED. WILL CONTINUE TO MONITOR. ADELINE NUNN, MSN, RN
[2017-06-23 22:34] LABS: POC Glucose,Bedside 263 mg/dL
[2017-06-24 04:00] VITALS: BP 163/65; PULSE 88; RESP 18; TEMP 36.7; O2SAT 95
--- NOTE | 2017-06-24 05:51 | PC.NURSE ---
PT ALERT AND ORIENTED. SLEPT INTERVALS THIS SHIFT. IV SECURE AND PATENT, SALINE LOCK, PT REFUSES CONTINUOUS FLUIDS. RESPIRATIONS EVEN AND UNLABORED. BREATH SOUNDS EQUAL AND CLEAR THROUGHOUT. 2+ EDEMA BLE; ALSO SKIN ON LEGS IS DRY AND CRACKING. NO BLEEDING NOTED. NO TEDS THEY WILL NOT FIT PT'S LEGS. PT AMBULATES W/O DIFFICULTY. STATES HE IS SUPPOSED TO BE D/C'D TODAY. NO C/O PAIN. PT STABLE. WILL CONTINUE TO MONITOR. REPORT TO BE GIVEN TO ONCOMING NURSE.
[2017-06-24 07:12] LABS: POC Glucose,Bedside 264 mg/dL
[2017-06-24 07:18] LABS: Anion Gap 10.6 mEq/L (5-15); Blood Urea Nitrogen 23 mg/dL (7-18); Carbon Dioxide 26 mmol/L (21.0-32.0); Chloride 106 mmol/L (98-107); Creatinine Clearance Estimated 47 mL/min (0-300); Creatinine,Serum 2.03 mg/dL (0.70-1.30); Estimated Glomerular Filt Rate 35 ml/min (>60); GFR (African American) 42 ML/MIN (>60); Glucose 262 mg/dL (74-106); Potassium 4.6 mmoL/L (3.5-5.1); Sodium 138 mmol/L (136-145)
[2017-06-24 07:20] LABS: Basophils % 0.3 % (0.1-2.0); Eosinophils # 0.2 K/mm3 (0.0-0.4); Eosinophils % 3.1 % (0.1-12.0); Hemoglobin 9.4 g/dL (14.1-18.0); Lymphocytes # 1.1 K/mm3 (0.7-4.5); Lymphocytes % 14.7 K/mm3 (10-50); Mean Corpuscular HGB Conc 32.2 g/dL (31.8-35.4); Mean Corpuscular Hemoglobin 29.7 pg (27.0-31.2); Mean Corpuscular Volume 92.2 fl (80-94); Mean Platelet Volume 8.4 fl (7.4-10.4); Monocytes # 0.4 K/mm3 (0.1-1.0); Monocytes % 5.3 % (1.7-9.3); Neutrophils # 5.9 K/mm3 (1.8-7.8); Neutrophils % 76.6 % (37.0-80.0); Platelet Count 165 K/mm3 (142-424); Red Blood Count 3.15 M/mm3 (4.60-6.20); Red Cell Distribution Width 12.8 % (11.5-17.5); White Blood Count 7.6 K/mm3 (4.8-10.8)
[2017-06-24 07:35] VITALS: PULSE 90
--- NOTE | 2017-06-24 07:36 | PC.NURSE ---
pt room air sat 93 at this time
--- NOTE | 2017-06-24 07:44 | PC.NURSE ---
REPORT OBTAINED FROM CORINA TORRES
--- NOTE | 2017-06-24 07:45 | PC.NURSE ---
REPORT OBTAINED FROM PAYTON TORRES
[2017-06-24 08:21] VITALS: BP 167/88; PULSE 86; RESP 18; TEMP 36.6; O2SAT 95
[2017-06-24 08:38] VITALS: O2SAT 95
--- NOTE | 2017-06-24 09:24 | HMH.ACPN2 ---
Internal Medicine - PN: Subj *Date: 06/24/17 *Time: 09:24 Interval history: Patient did well last night, wants to go home. Does not want to resume Coumadin at this time due to recent intraoccular bleeding and other perceived side effects. Exam Vital signs and Labs for Last 24 Hours: Temp Pulse Resp BP Pulse Ox 97.8 F 86 18 167/88 95 06/24/17 08:21 06/24/17 08:21 06/24/17 08:21 06/24/17 08:21 06/24/17 08:38 Laboratory Results - last 24 hr 06/23/17 12:03: POC Glucose 206 06/23/17 16:44: POC Glucose 222 06/23/17 21:02: POC Glucose 263 06/24/17 06:18: POC Glucose 264 06/24/17 06:20: WBC 7.6, RBC 3.15 L, Hgb 9.4 L, Hct 29.0 L, MCV 92.2, MCH 29.7, MCHC 32.2, RDW 12.8, Plt Count 165, MPV 8.4, Neut % (Auto) 76.6, Lymph % (Auto) 14.7, [place] % (Auto) 5.3, Eos % (Auto) 3.1, Baso % (Auto) 0.3, Neut # (Auto) 5.9, Lymph # (Auto) 1.1, [place] # (Auto) 0.4, Eos # (Auto) 0.2, Baso # (Auto) 0.0 06/24/17 06:20: Sodium 138, Potassium 4.6, Chloride 106, Carbon Dioxide 26, Anion Gap 10.6, BUN 23 H, Creatinine 2.03 H, Estimated Creat Clear 47, Estimated GFR 35 L, Est GFR ( Amer) 42 L, Glucose 262 H Vital Signs Temp Pulse Pulse Resp BP Pulse Ox 06/24/17 08:38 95 06/24/17 08:21 97.8 F 86 18 167/88 95 06/24/17 07:35 90 06/24/17 04:00 98.0 F 88 18 163/65 95 06/23/17 21:00 95 06/23/17 20:00 98.1 F 79 20 188/86 95 06/23/17 19:45 72 06/23/17 15:55 97.9 F 90 18 160/84 95 Intake and Output 06/23/17 06/24/17 06/24/17 19:59 03:59 11:59 Intake Total 1500 / 1500 1130 / 1130 Output Total 800 / 800 Balance 1500 / 1500 330 / 330 Intake: Intake, Oral Amount 1500 / 1500 600 / 600 Intake, Other Amount 30 / 30 Intake, Total IV Amount 500 / 500 Azithromycin 500 mg In 0.9 % 500 / 500 Sodium Chloride 250 ml @ 250 mls/hr IV Q24H [facility] Rx#:[id number] Output: Output, Urine Amount 800 / 800 Other: Intake, Other Source Saline Solution Number of Voids 3 Number of Unmeasured Voids 4 3 Number of Bowel Movements 0 Weight 358 lb 2 oz Patient Weight 06/24/17 11:59 Weight 358 lb 2 oz I & O for Last 24 hours: Intake & Output 06/21/17 06/22/17 06/23/17 06/24/17 11:59 11:59 11:59 11:59 Intake Total 7529 / 7529 3463 / 3463 480 / 480 2630 / 2630 Output Total 100 / 100 1200 / 1200 800 / 800 Balance 7529 / 7529 3363 / 3363 -720 / -720 1830 / 1830 Weight 331 lb 330 lb 15.997 oz 358 lb 2 oz Microbiology Reports for the Last 24 Hours: Microbiology 06/19/17 17:20 Blood Blood Culture - Preliminary NO GROWTH AFTER 4 DAYS 06/19/17 17:20 Blood Blood Culture - Preliminary NO GROWTH AFTER 4 DAYS - Constitutional no acute distress - *Routine Respiratory Exam Present: CTA bilaterally - *Routine Cardiovascular Exam Present: RRR - *Routine Abdominal Exam Present: soft. Absent: tenderness, distended - *Routine Extremities Exam Present: edema (2+ bilateral LE) Assessment and Plan (1) Acute febrile illness Current visit: Yes Status: Acute Category: Medical Code(s): R50.9 - Fever, unspecified (2) CAP (community acquired pneumonia) Current visit: Yes Status: Acute Qualifiers: Laterality: right Lung location: lower lobe of lung Qualified Code(s): J18.1 - Lobar pneumonia, unspecified organism Category: Medical Code(s): J18.9 - Pneumonia, unspecified organism (3) Type 2 diabetes mellitus Current visit: Yes Status: Chronic Category: Medical Code(s): E11.9 - Type 2 diabetes mellitus without complications (4) HTN (hypertension) Current visit: Yes Status: Chronic Category: Medical Code(s): I10 - Essential (primary) hypertension (5) Chest pain Current visit: Yes Status: Acute Qualifiers: Chest pain type: precordial pain Qualified Code(s): R07.2 - Precordial pain Category: Med
--- NOTE | 2017-06-24 09:27 | P.PN_ITS ---
Internal Medicine - PN: Subj *Date: 06/24/17 *Time: 09:24 Interval history: Patient did well last night, wants to go home. Does not want to resume Coumadin at this time due to recent intraoccular bleeding and other perceived side effects. Exam Vital signs and Labs for Last 24 Hours: Temp Pulse Resp BP Pulse Ox 97.8 F 86 18 167/88 95 06/24/17 08:21 06/24/17 08:21 06/24/17 08:21 06/24/17 08:21 06/24/17 08:38 Laboratory Results - last 24 hr 06/23/17 12:03: POC Glucose 206 06/23/17 16:44: POC Glucose 222 06/23/17 21:02: POC Glucose 263 06/24/17 06:18: POC Glucose 264 06/24/17 06:20: WBC 7.6, RBC 3.15 L, Hgb 9.4 L, Hct 29.0 L, MCV 92.2, MCH 29.7, MCHC 32.2, RDW 12.8, Plt Count 165, MPV 8.4, Neut % (Auto) 76.6, Lymph % (Auto) 14.7, [place] % (Auto) 5.3, Eos % (Auto) 3.1, Baso % (Auto) 0.3, Neut # (Auto) 5.9 , Lymph # (Auto) 1.1, [place] # (Auto) 0.4, Eos # (Auto) 0.2, Baso # (Auto) 0.0 06/24/17 06:20: Sodium 138, Potassium 4.6, Chloride 106, Carbon Dioxide 26, Anion Gap 10.6, BUN 23 H, Creatinine 2.03 H, Estimated Creat Clear 47, Estimated GFR 35 L, Est GFR ( Amer) 42 L, Glucose 262 H Vital Signs Temp Pulse Pulse Resp BP Pulse Ox 06/24/17 08:38 95 06/24/17 08:21 97.8 F 86 18 167/88 95 06/24/17 07:35 90 06/24/17 04:00 98.0 F 88 18 163/65 95 06/23/17 21:00 95 06/23/17 20:00 98.1 F 79 20 188/86 95 06/23/17 19:45 72 06/23/17 15:55 97.9 F 90 18 160/84 95 Intake and Output 06/23/17 06/24/17 06/24/17 19:59 03:59 11:59 Intake Total 1500 / 1500 1130 / 1130 Output Total 800 / 800 Balance 1500 / 1500 330 / 330 Intake: Intake, Oral Amount 1500 / 1500 600 / 600 Intake, Other Amount 30 / 30 Intake, Total IV Amount 500 / 500 Azithromycin 500 mg In 0.9 % 500 / 500 Sodium Chloride 250 ml @ 250 mls/hr IV Q24H [facility] Rx#:[id number] Output: Output, Urine Amount 800 / 800 Other: Intake, Other Source Saline Solution Number of Voids 3 Number of Unmeasured Voids 4 3 Number of Bowel Movements 0 Weight 358 lb 2 oz Patient Weight 06/24/17 11:59 Weight 358 lb 2 oz I & O for Last 24 hours: Intake & Output 06/21/17 06/22/17 06/23/17 06/24/17 11:59 11:59 11:59 11:59 Intake Total 7529 / 7529 3463 / 3463 480 / 480 2630 / 2630 Output Total 100 / 100 1200 / 1200 800 / 800 Balance 7529 / 7529 3363 / 3363 -720 / -720 1830 / 1830 Weight 331 lb 330 lb 15.997 oz 358 lb 2 oz Microbiology Reports for the Last 24 Hours: Microbiology 06/19/17 17:20 Blood Blood Culture - Preliminary NO GROWTH AFTER 4 DAYS 06/19/17 17:20 Blood Blood Culture - Preliminary NO GROWTH AFTER 4 DAYS - Constitutional no acute distress - *Routine Respiratory Exam Present: CTA bilaterally - *Routine Cardiovascular Exam Present: RRR - *Routine Abdominal Exam Present: soft. Absent: tenderness, distended - *Routine Extremities Exam Present: edema (2+ bilateral LE) Assessment and Plan (1) Acute febrile illness Current visit: Yes Status: Acute Category: Medical Co
--- NOTE | 2017-06-24 10:04 | PC.NURSE ---
called clinic pharmacy at this time that patient had requested to use meds to beds, but that it seemed to of transferred meds to [facility]. pharmacy stated they would call [facility] at this time and see if it could be taken care of so that patient could use meds to beds. awaiting call back
--- NOTE | 2017-06-24 11:13 | PC.NURSE ---
CLINIC PHARMACY GOT PATIENT PRESCRIPTIONS AND BROUGHT THEM UP
--- NOTE | 2017-06-26 21:07 | HMH.DCSUM ---
General - General Admission date: 06/19/17 Discharge date: 06/24/17 HPI HPI: Mr Madden is a 51 year old male with a history of Type 2 DM, DVT, CAD, dilated cardiomyopathy, HTN, Stage 4 CKD, hyperlipidemia and Charcot's joint who presented to [facility] via private vechicle after experiencing mid sternal to right sided severe chest pain about 12 noon today. He was SOB, nauseated and did vomit. He had palpitations as well. The discomfort eased after tylenol and Zofran. He continues to feel nauseated but the pain is much improved. He is restless, thirsty, and generally miserable. He did have a fever of 102 and has received Tylenol for this. He has been started on Zithromax and Ceftin. To note : patient was instructed not to take his Coumadin after experiencing a bleed in the left eye. He did have eye surgery where the blood was aspirated and has a FU appt. He states he has been taking all other meds. He sees cardiology on a regular basis and Kenny Portillo has been to see him today in the ER. Objective Vital signs: Temp Pulse Resp BP Pulse Ox 97.8 F 86 18 167/88 95 06/24/17 08:21 06/24/17 08:21 06/24/17 08:21 06/24/17 08:21 06/24/17 08:38 Narrative: - Constitutional no acute distress, obese Comments: lying on stretcher in the ER awaiting bed on the acute care floor; restless - *Routine HEENT Exam Eye: Present: PERRL. Absent: conjunctival icterus ENT: Present: mucous membranes dry. Absent: dentition normal - *Routine Neck Exam Absent: carotid bruit Comments: Bull neck - *Routine Respiratory Exam Present: CTA bilaterally Comments: A&P - *Routine Cardiovascular Exam Present: RRR Comments: monitor showing SR - *Routine Abdominal Exam Present: soft, normoactive bowel sounds. Absent: tenderness, distended, guarding Comments: obese - *Routine Extremities Exam Absent: edema, calf tenderness - *Routine Neurological Exam Present: alert, oriented X3 Hospital Course Hospital Course: Patient was started on zithromax and rocephin as well as nebs. He was started on lovenx for DVT prophylaxis. He appeared to be hypovolemic as his creatinine was higher and UOP was low. He received a bolus of IVF. CXR showed a bilateral pneumonia. The patient improved slowly. He did end up with some edema and had to be given a dose of lasix. His renal function and WBC improved. He was stable to be discharged home and will f/u in the office in 5 days. He will not resume Coumadin and will discuss further anticoagulation at f/u visit. DS: Diagnosis - Discharge Diagnosis (1) Acute febrile illness Status: Acute (2) CAP (community acquired pneumonia) Status: Acute (3) Type 2 diabetes mellitus Status: Chronic (4) HTN (hypertension) Status: Chronic (5) Chest pain Status: Acute (6) Chronic kidney disease (CKD) Status: Chronic (7) CAD (coronary artery disease) Status: Chronic (8) Cardiomyopathy Status: Chronic (9) Charcot's joint Status: Chronic (10) HHD (hypertensive heart disease) Status: Chronic (11) HLD (hyperlipidemia) Status: Chronic (12) Subtherapeutic international normalized ratio (INR) Status: Acute (13) Non-compliance Status: Acute Meds Home Medications Medication Instructions Recorded Confirmed Type clopidogrel 75 mg tablet 75 mg PO DAILY 05/23/17 06/20/17 History furosemide 40 mg tablet 40 mg PO DAILY 05/23/17 06/20/17 History metolazone 5 mg tablet 5 mg PO BID tab 05/23/17 06/20/17 History sertraline 50 mg tablet 50 mg PO DAILY 05/23/17 06/20/17 History Ascorbic Acid [Vitamin C 500mg 500 mg PO DAILY 06/20/17 06/20/17 History tablet] Cyanocobalamin (Vitamin B-12) 1,000 mcg PO DAILY 06/20/17 06/20/17 History [Vitamin B-12 1000mcg Tablet] Fenofibrate [Tricor 54mg tablet] 54 mg PO DAILY 06/20/17 06/20/17 History Ferrous Sulfate [Ferrous Sulfate 325 mg PO DAILY 05/24
--- NOTE | 2017-06-26 21:10 | P.DS_ITS ---
General - General Admission date: 06/19/17 Discharge date: 06/24/17 HPI HPI: Mr Madden is a 51 year old male with a history of Type 2 DM, DVT, CAD, dilated cardiomyopathy, HTN, Stage 4 CKD, hyperlipidemia and Charcot's joint who presented to [facility] via private vechicle after experiencing mid sternal to right sided severe chest pain about 12 noon today. He was SOB, nauseated and did vomit. He had palpitations as well. The discomfort eased after tylenol and Zofran. He continues to feel nauseated but the pain is much improved. He is restless, thirsty, and generally miserable. He did have a fever of 102 and has received Tylenol for this. He has been started on Zithromax and Ceftin. To note : patient was instructed not to take his Coumadin after experiencing a bleed in the left eye. He did have eye surgery where the blood was aspirated and has a FU appt. He states he has been taking all other meds. He sees cardiology on a regular basis and Kenny Portillo has been to see him today in the ER. Objective Vital signs: Temp Pulse Resp BP Pulse Ox 97.8 F 86 18 167/88 95 06/24/17 08:21 06/24/17 08:21 06/24/17 08:21 06/24/17 08:21 06/24/17 08:38 Narrative: - Constitutional no acute distress, obese Comments: lying on stretcher in the ER awaiting bed on the acute care floor; restless - *Routine HEENT Exam Eye: Present: PERRL. Absent: conjunctival icterus ENT: Present: mucous membranes dry. Absent: dentition normal - *Routine Neck Exam Absent: carotid bruit Comments: Bull neck - *Routine Respiratory Exam Present: CTA bilaterally Comments: A&P - *Routine Cardiovascular Exam Present: RRR Comments: monitor showing SR - *Routine Abdominal Exam Present: soft, normoactive bowel sounds. Absent: tenderness, distended, guarding Comments: obese - *Routine Extremities Exam Absent: edema, calf tenderness - *Routine Neurological Exam Present: alert, oriented X3 Hospital Course Hospital Course: Patient was started on zithromax and rocephin as well as nebs. He was started on lovenx for DVT prophylaxis. He appeared to be hypovolemic as his creatinine was higher and UOP was low. He received a bolus of IVF. CXR showed a bilateral pneumonia. The patient improved slowly. He did end up with some edema and had to be given a dose of lasix. His renal function and WBC improved. He was stable to be discharged home and will f/u in the office in 5 days. He will not resume Coumadin and will discuss further anticoagulation at f/u visit. DS: Diagnosis - Discharge Diagnosis (1) Acute febrile illness Status: Acute (2) CAP (community acquired pneumonia) Status: Acute (3) Type 2 diabetes mellitus Status: Chronic (4) HTN (hypertension) Status: Chronic (5) Chest pain Status: Acute (6) Chronic kidney disease (CKD) Status: Chronic (7) CAD (coronary artery disease) Status: Chronic (8) Cardiomyopathy Status: Chronic (9) Charcot's joint Status: Chronic (10) HHD (hypertensive heart disease) Status: Chronic (11) HLD (hyperlipidemia) Status: Chronic (12) Subtherapeutic international normalized ratio (INR) Status: Acute (13) Non-compliance Status: Acute Meds Home Medications Medication Instructions Recorded Confirmed Type clopido
== END 2017-06-24 11:19 | disposition home or self-care (01) ==
LOC: ER 14:24 → 2ND 15:01
PROVIDERS: Physician Assistant; Admitting Provider Family Medicine; Emergency Provider Emergency Medicine; Family Provider Family Medicine; PCP Family Medicine; Visit Provider Family Medicine
DX: J18.9 Pneumonia, unspecified organism (principal); E11.22 Type 2 diabetes mellitus with diabetic chronic kidney disease; N18.4 Chronic kidney disease, stage 4 (severe); I13.0 Hypertensive heart and chronic kidney disease with heart failure and stage 1 through stage 4 chronic kidney disease, or unspecified chronic kidney disease; I50.9 Heart failure, unspecified; I25.10 Atherosclerotic heart disease of native coronary artery without angina pectoris; I25.2 Old myocardial infarction; E78.5 Hyperlipidemia, unspecified; E89.0 Postprocedural hypothyroidism; I42.0 Dilated cardiomyopathy; R07.2 Precordial pain; E11.610 Type 2 diabetes mellitus with diabetic neuropathic arthropathy; R79.1 Abnormal coagulation profile; R11.2 Nausea with vomiting, unspecified; D64.9 Anemia, unspecified; Z88.2 Allergy status to sulfonamides; Z89.022 Acquired absence of left finger(s); Z91.14 Patient's other noncompliance with medication regimen; Z82.49 Family history of ischemic heart disease and other diseases of the circulatory system; Z83.3 Family history of diabetes mellitus; Z86.718 Personal history of other venous thrombosis and embolism; Z79.02 Long term (current) use of antithrombotics/antiplatelets; Z79.82 Long term (current) use of aspirin; Z79.4 Long term (current) use of insulin; Z79.899 Other long term (current) drug therapy
CPT/HCPCS: 36415; 71046; 80048; 80053; 82550; 82553; 82962; 84484; 85007; 85025; 85610; 87040; 87275; 87276; 87486; 87581; 87633; 87798; 93005; 93041; 94640; 96372; 99283; G0378; J2405

== ENCOUNTER → 2017-07-10 14:37 | Outpatient (POV) | payer MEDICARE, SELFPAY | PROVIDERS: Family Provider Family Medicine; PCP Family Medicine; Visit Provider Internal Medicine Nephrology | DX: Z00.00 Encounter for general adult medical examination without abnormal findings (principal) ==

== ENCOUNTER → 2017-10-17 08:40 | Outpatient (CLI) | payer MEDICARE, SELFPAY ==
[2017-10-17 08:51] LABS: Microscopic, Urine URINE MICROSCOPIC (MICROSCOPIC)
[2017-10-17 09:11] LABS: Basophils # 0.1 K/mm3 (0-0.2); Basophils % 0.6 % (0.1-2.0); Eosinophils # 0.3 K/mm3 (0.0-0.4); Eosinophils % 3.2 % (0.1-12.0); Hemoglobin 14.8 g/dL (14.1-18.0); Lymphocytes # 2.2 K/mm3 (0.7-4.5); Lymphocytes % 23.1 K/mm3 (10-50); Mean Corpuscular HGB Conc 33.6 g/dL (31.8-35.4); Mean Corpuscular Hemoglobin 29.7 pg (27.0-31.2); Mean Corpuscular Volume 88.3 fl (80-94); Monocytes # 0.5 K/mm3 (0.1-1.0); Neutrophils # 6.6 K/mm3 (1.8-7.8); Neutrophils % 68.1 % (37.0-80.0); Platelet Count 269 K/mm3 (142-424); Red Blood Count 4.99 M/mm3 (4.60-6.20); Red Cell Distribution Width 13.5 % (11.5-17.5); White Blood Count 9.7 K/mm3 (4.8-10.8)
[2017-10-17 10:54] LABS: Albumin Level 3.4 gm/dL (3.4-5.0); Anion Gap 15.9 mEq/L (5-15); Blood Urea Nitrogen 66 mg/dL (7-18); Calcium 9.3 mg/dL (8.5-10.1); Carbon Dioxide 25 mmol/L (21.0-32.0); Chloride 101 mmol/L (98-107); Creatinine,Serum 3.23 mg/dL (0.70-1.30); Estimated Glomerular Filt Rate 20 ml/min (>60); GFR (African American) 25 ML/MIN (>60); Glucose 258 mg/dL (74-106); Phosphorous 5.3 mg/dL (2.4-4.9); Potassium 4.9 mmoL/L (3.5-5.1); Sodium 137 mmol/L (136-145); Uric Acid 10.4 mg/dL (2.6-7.2)
[2017-10-17 11:16] LABS: Appearance,Urine CLEAR (Clear); Bilirubin,Urine Negative (Negative); Blood, Urine TRACE-I (Negative); Color,Urine YELLOW (Yellow); Glucose,Urine (UA) 3+ (Negative); Ketones,Urine Negative (Negative); Leukocyte Esterase,Urine Negative (Negative); Nitrate,Urine Negative (Negative); Protein,Urine 3+ (Negative); Specific Gravity, Urine 1.025 (1.005-1.030); Urobilinogen,Urine 0.2 EU/dl (0.2)
[2017-10-17 11:26] LABS: Bacteria,Urine Trace /lpf; Hyaline Casts,Urine Occasional #/lpf (0); RBC,Urine Occasional #/hpf (0-3); Squamous Epithelial Cell,Urine Occasional #/hpf (0-5)
[2017-10-18 05:13] LABS: Creatinine, Urine 79.5 mg/dL (Not Estab.)
[2017-10-18 06:39] LABS: Microalbumin, Urine 2506.5 ug/mL (Not Estab.); Vitamin D 25 Hydroxy 9.5 ng/mL (30.0-100.0)
[2017-10-19 06:11] LABS: Parathyroid Hormone Intact 117 pg/mL (15-65)
== END ==
PROVIDERS: Visit Provider Internal Medicine Nephrology
DX: N18.4 Chronic kidney disease, stage 4 (severe) (principal)
CPT/HCPCS: 36415; 80069; 81001; 82043; 82570; 82652; 83970; 84155; 84550; 85025

== ENCOUNTER → 2017-10-26 14:40 | Outpatient (POV) | payer MEDICARE, SELFPAY | PROVIDERS: Family Provider Family Medicine; PCP Family Medicine; Visit Provider Internal Medicine Nephrology | DX: Z00.00 Encounter for general adult medical examination without abnormal findings (principal) ==

== ENCOUNTER → 2017-12-12 10:56 | Outpatient (CLI) | payer MEDICARE, SELFPAY ==
[2017-12-12 11:01] LABS: Microscopic, Urine URINE MICROSCOPIC (MICROSCOPIC)
[2017-12-12 11:32] LABS: Basophils % 0.3 % (0.1-2.0); Eosinophils # 0.2 K/mm3 (0.0-0.4); Eosinophils % 2.6 % (0.1-12.0); Hematocrit 39.8 % (42.0-52.0); Hemoglobin 13.2 g/dL (14.1-18.0); Lymphocytes # 1.8 K/mm3 (0.7-4.5); Lymphocytes % 22.9 K/mm3 (10-50); Mean Corpuscular HGB Conc 33.3 g/dL (31.8-35.4); Mean Corpuscular Hemoglobin 29.9 pg (27.0-31.2); Mean Corpuscular Volume 89.8 fl (80-94); Mean Platelet Volume 7.9 fl (7.4-10.4); Monocytes # 0.4 K/mm3 (0.1-1.0); Monocytes % 5.1 % (1.7-9.3); Neutrophils # 5.5 K/mm3 (1.8-7.8); Neutrophils % 69.1 % (37.0-80.0); Platelet Count 210 K/mm3 (142-424); Red Blood Count 4.43 M/mm3 (4.60-6.20); Red Cell Distribution Width 13.4 % (11.5-17.5)
[2017-12-12 11:49] LABS: Albumin Level 3.1 gm/dL (3.4-5.0); Anion Gap 13.2 mEq/L (5-15); Blood Urea Nitrogen 42 mg/dL (7-18); Calcium 8.6 mg/dL (8.5-10.1); Carbon Dioxide 26 mmol/L (21.0-32.0); Chloride 109 mmol/L (98-107); Creatinine,Serum 3.07 mg/dL (0.70-1.30); Estimated Glomerular Filt Rate 22 ml/min (>60); GFR (African American) 26 ML/MIN (>60); Glucose 173 mg/dL (74-106); Phosphorous 4.2 mg/dL (2.4-4.9); Potassium 5.2 mmoL/L (3.5-5.1); Sodium 143 mmol/L (136-145)
[2017-12-12 12:14] LABS: Appearance,Urine SL CLOUDY (Clear); Bilirubin,Urine Negative (Negative); Blood, Urine TRACE-L (Negative); Color,Urine YELLOW (Yellow); Glucose,Urine (UA) 1+ (Negative); Ketones,Urine Negative (Negative); Leukocyte Esterase,Urine Negative (Negative); Nitrate,Urine Negative (Negative); Protein,Urine 3+ (Negative); Specific Gravity, Urine 1.025 (1.005-1.030); Urobilinogen,Urine 0.2 EU/dl (0.2)
[2017-12-12 12:22] LABS: Creatinine,Urine Random 82 mg/dL (20-320)
[2017-12-12 12:42] LABS: Total Protein,Urine Random 376.7 mg/dL (0.0-11.9)
[2017-12-12 12:45] LABS: Bacteria,Urine Trace /lpf; RBC,Urine Occasional #/hpf (0-3)
[2017-12-15 06:34] LABS: Vitamin D 25 Hydroxy 14.7 ng/mL (30.0-100.0)
== END ==
PROVIDERS: Visit Provider Internal Medicine Nephrology
DX: N18.4 Chronic kidney disease, stage 4 (severe) (principal)
CPT/HCPCS: 36415; 80069; 81001; 82570; 82652; 84155; 85025

== ENCOUNTER → 2017-12-25 13:27 | Outpatient (POV) | payer MEDICARE, SELFPAY | PROVIDERS: Family Provider Family Medicine; PCP Family Medicine; Visit Provider Internal Medicine Nephrology | DX: Z00.00 Encounter for general adult medical examination without abnormal findings (principal) ==

== ENCOUNTER → 2018-01-27 08:32 | Outpatient (CLI) | payer MEDICARE, SELFPAY ==
[2018-01-27 08:37] LABS: Microscopic, Urine URINE MICROSCOPIC (MICROSCOPIC)
[2018-01-27 09:22] LABS: Appearance,Urine SL CLOUDY (Clear); Bilirubin,Urine Negative (Negative); Blood, Urine 1+ (Negative); Color,Urine YELLOW (Yellow); Glucose,Urine (UA) 1+ (Negative); Ketones,Urine Negative (Negative); Leukocyte Esterase,Urine 1+ (Negative); Nitrate,Urine Negative (Negative); Protein,Urine 2+ (Negative); Specific Gravity, Urine 1.025 (1.005-1.030); Urobilinogen,Urine 0.2 EU/dl (0.2)
[2018-01-27 09:22] LABS: Basophils % 0.5 % (0.1-2.0); Eosinophils # 0.3 K/mm3 (0.0-0.4); Eosinophils % 3.3 % (0.1-12.0); Hematocrit 37.3 % (42.0-52.0); Hemoglobin 12.1 g/dL (14.1-18.0); Lymphocytes # 1.8 K/mm3 (0.7-4.5); Lymphocytes % 23.4 K/mm3 (10-50); Mean Corpuscular HGB Conc 32.6 g/dL (31.8-35.4); Mean Corpuscular Hemoglobin 29.6 pg (27.0-31.2); Mean Corpuscular Volume 90.8 fl (80-94); Mean Platelet Volume 7.8 fl (7.4-10.4); Monocytes # 0.4 K/mm3 (0.1-1.0); Monocytes % 5.7 % (1.7-9.3); Neutrophils # 5.2 K/mm3 (1.8-7.8); Neutrophils % 67.1 % (37.0-80.0); Platelet Count 221 K/mm3 (142-424); Red Blood Count 4.11 M/mm3 (4.60-6.20); Red Cell Distribution Width 13.2 % (11.5-17.5); White Blood Count 7.8 K/mm3 (4.8-10.8)
[2018-01-27 09:52] LABS: WBC,Urine 20-50 #/hpf (0-3)
[2018-01-27 09:53] LABS: Bacteria,Urine 1+ /lpf
[2018-01-27 09:56] LABS: Creatinine,Urine Random 72 mg/dL (20-320)
[2018-01-27 10:05] LABS: Total Protein,Urine Random 281.5 mg/dL (0.0-11.9)
[2018-01-27 10:09] LABS: Albumin Level 3.3 gm/dL (3.4-5.0); Anion Gap 11.6 mEq/L (5-15); Blood Urea Nitrogen 52 mg/dL (7-18); Calcium 8.4 mg/dL (8.5-10.1); Carbon Dioxide 25 mmol/L (21.0-32.0); Chloride 107 mmol/L (98-107); Estimated Glomerular Filt Rate 20 ml/min (>60); GFR (African American) 24 ML/MIN (>60); Glucose 223 mg/dL (74-106); Phosphorous 4.7 mg/dL (2.4-4.9); Potassium 5.6 mmoL/L (3.5-5.1); Sodium 138 mmol/L (136-145)
== END ==
PROVIDERS: PCP Family Medicine; Visit Provider Internal Medicine Nephrology
DX: N18.4 Chronic kidney disease, stage 4 (severe) (principal); R82.90 Unspecified abnormal findings in urine
CPT/HCPCS: 36415; 80069; 81001; 82570; 84155; 85025; 87086

== ENCOUNTER → 2018-03-21 09:35 | Outpatient (CLI) | payer MEDICARE, SELFPAY ==
[2018-03-21 09:38] LABS: Microscopic, Urine URINE MICROSCOPIC (MICROSCOPIC)
[2018-03-21 09:56] LABS: Appearance,Urine CLEAR (Clear); Bilirubin,Urine Negative (Negative); Blood, Urine TRACE-I (Negative); Color,Urine YELLOW (Yellow); Glucose,Urine (UA) TRACE (Negative); Ketones,Urine Negative (Negative); Leukocyte Esterase,Urine TRACE (Negative); Nitrate,Urine Negative (Negative); Protein,Urine 3+ (Negative); Urobilinogen,Urine 0.2 EU/dl (0.2)
[2018-03-21 10:01] LABS: Creatinine,Urine Random 71 mg/dL (20-320)
[2018-03-21 10:05] LABS: Basophils # 0.1 K/mm3 (0-0.2); Basophils % 0.6 % (0.1-2.0); Eosinophils # 0.3 K/mm3 (0.0-0.4); Eosinophils % 2.5 % (0.1-12.0); Hematocrit 40.4 % (42.0-52.0); Hemoglobin 13.4 g/dL (14.1-18.0); Lymphocytes # 2.3 K/mm3 (0.7-4.5); Mean Corpuscular Hemoglobin 30.4 pg (27.0-31.2); Mean Corpuscular Volume 92.1 fl (80-94); Mean Platelet Volume 7.8 fl (7.4-10.4); Monocytes # 0.5 K/mm3 (0.1-1.0); Monocytes % 4.7 % (1.7-9.3); Neutrophils % 69.3 % (37.0-80.0); Platelet Count 230 K/mm3 (142-424); Red Blood Count 4.39 M/mm3 (4.60-6.20); Red Cell Distribution Width 13.2 % (11.5-17.5); White Blood Count 10.2 K/mm3 (4.8-10.8)
[2018-03-21 10:07] LABS: Bacteria,Urine 1+ /lpf; RBC,Urine Occasional #/hpf (0-3)
[2018-03-21 10:23] LABS: Total Protein,Urine Random 254.6 mg/dL (0.0-11.9)
[2018-03-21 13:24] LABS: Albumin Level 3.5 gm/dL (3.4-5.0); Anion Gap 14.8 mEq/L (5-15); Blood Urea Nitrogen 58 mg/dL (7-18); Calcium 8.9 mg/dL (8.5-10.1); Carbon Dioxide 25 mmol/L (21.0-32.0); Chloride 109 mmol/L (98-107); Estimated Glomerular Filt Rate 18 ml/min (>60); GFR (African American) 22 ML/MIN (>60); Glucose 148 mg/dL (74-106); Phosphorous 4.7 mg/dL (2.4-4.9); Potassium 5.8 mmoL/L (3.5-5.1); Sodium 143 mmol/L (136-145)
[2018-03-21 16:21] LABS: Creatinine,Serum 3.53 mg/dL (0.70-1.30)
== END ==
PROVIDERS: Visit Provider Internal Medicine Nephrology
DX: N18.4 Chronic kidney disease, stage 4 (severe) (principal); R82.90 Unspecified abnormal findings in urine
CPT/HCPCS: 36415; 80069; 81001; 82570; 84155; 85025; 87086

== ENCOUNTER → 2018-03-22 13:11 | Outpatient (POV) | payer MEDICARE, SELFPAY | PROVIDERS: Visit Provider Internal Medicine Nephrology | DX: Z00.00 Encounter for general adult medical examination without abnormal findings (principal) ==

== ENCOUNTER → 2018-05-23 17:42 | Outpatient (CLI) | payer MEDICARE, SELFPAY ==
[2018-05-23 17:47] LABS: Microscopic, Urine URINE MICROSCOPIC (MICROSCOPIC)
[2018-05-23 18:03] LABS: Appearance,Urine CLEAR (Clear); Bilirubin,Urine Negative (Negative); Blood, Urine 1+ (Negative); Color,Urine YELLOW (Yellow); Glucose,Urine (UA) 1+ (Negative); Ketones,Urine Negative (Negative); Leukocyte Esterase,Urine Negative (Negative); Nitrate,Urine Negative (Negative); Protein,Urine 3+ (Negative); Specific Gravity, Urine 1.025 (1.005-1.030); Urobilinogen,Urine 0.2 EU/dl (0.2)
[2018-05-23 18:09] LABS: Creatinine,Urine Random 102 mg/dL (20-320)
[2018-05-23 18:20] LABS: Bacteria,Urine Trace /lpf; RBC,Urine Occasional #/hpf (0-3)
[2018-05-23 18:21] LABS: Total Protein,Urine Random 476.8 mg/dL (0.0-11.9)
[2018-05-23 19:13] LABS: Basophils # 0.1 K/mm3 (0-0.2); Basophils % 0.5 % (0.1-2.0); Eosinophils # 0.2 K/mm3 (0.0-0.4); Eosinophils % 1.4 % (0.1-12.0); Hematocrit 38.2 % (42.0-52.0); Hemoglobin 12.2 g/dL (14.1-18.0); Lymphocytes # 2.1 K/mm3 (0.7-4.5); Lymphocytes % 17.8 % (10-50); Mean Corpuscular HGB Conc 31.8 g/dL (31.8-35.4); Mean Corpuscular Hemoglobin 29.6 pg (27.0-31.2); Mean Platelet Volume 7.8 fl (7.4-10.4); Monocytes # 0.5 K/mm3 (0.1-1.0); Monocytes % 4.4 % (1.7-9.3); Neutrophils % 75.9 % (37.0-80.0); Platelet Count 248 K/mm3 (142-424); Red Blood Count 4.11 M/mm3 (4.60-6.20); Red Cell Distribution Width 12.8 % (11.5-17.5); White Blood Count 11.8 K/mm3 (4.8-10.8)
[2018-05-23 19:56] LABS: Albumin Level 3.3 gm/dL (3.4-5.0); Anion Gap 16.4 mEq/L (5-15); Blood Urea Nitrogen 65 mg/dL (7-18); Calcium 8.6 mg/dL (8.5-10.1); Carbon Dioxide 24 mmol/L (21.0-32.0); Chloride 105 mmol/L (98-107); Estimated Glomerular Filt Rate 16 ml/min (>60); GFR (African American) 19 ML/MIN (>60); Glucose 228 mg/dL (74-106); Phosphorous 4.3 mg/dL (2.4-4.9); Sodium 139 mmol/L (136-145)
[2018-05-23 20:10] LABS: Potassium 6.4 mmoL/L (3.5-5.1)
[2018-05-23 20:11] LABS: Creatinine,Serum 3.94 mg/dL (0.70-1.30)
== END ==
PROVIDERS: Visit Provider Internal Medicine Nephrology
DX: N18.4 Chronic kidney disease, stage 4 (severe) (principal); R82.90 Unspecified abnormal findings in urine
CPT/HCPCS: 36415; 80069; 81001; 82570; 84155; 85025; 87086

== ENCOUNTER → 2018-05-24 15:43 | Outpatient (POV) | payer MEDICARE, SELFPAY | PROVIDERS: Visit Provider Internal Medicine Nephrology | DX: Z00.00 Encounter for general adult medical examination without abnormal findings (principal) ==

== ENCOUNTER → 2018-05-29 17:17 | Outpatient (CLI) | payer MEDICARE, SELFPAY ==
[2018-05-29 19:43] LABS: Anion Gap 14.8 mEq/L (5-15); Blood Urea Nitrogen 62 mg/dL (7-18); Calcium 8.7 mg/dL (8.5-10.1); Carbon Dioxide 25 mmol/L (21.0-32.0); Chloride 104 mmol/L (98-107); Estimated Glomerular Filt Rate 15 ml/min (>60); GFR (African American) 18 ML/MIN (>60); Glucose 237 mg/dL (74-106); Potassium 5.8 mmoL/L (3.5-5.1); Sodium 138 mmol/L (136-145)
[2018-05-29 19:45] LABS: Creatinine,Serum 4.26 mg/dL (0.70-1.30)
== END ==
PROVIDERS: Visit Provider Internal Medicine Nephrology
DX: E87.5 Hyperkalemia (principal)
CPT/HCPCS: 36415; 80048

== ENCOUNTER → 2018-06-26 13:50 | Outpatient (CLI) | payer MEDICARE, SELFPAY ==
[2018-06-26 14:10] LABS: Basophils % 0.4 % (0.1-2.0); Eosinophils # 0.2 K/mm3 (0.0-0.4); Eosinophils % 2.5 % (0.1-12.0); Hematocrit 36.7 % (42.0-52.0); Hemoglobin 12.2 g/dL (14.1-18.0); Lymphocytes # 1.8 K/mm3 (0.7-4.5); Mean Corpuscular HGB Conc 33.4 g/dL (31.8-35.4); Mean Corpuscular Hemoglobin 31.3 pg (27.0-31.2); Mean Corpuscular Volume 93.6 fl (80-94); Mean Platelet Volume 8.3 fl (7.4-10.4); Monocytes # 0.5 K/mm3 (0.1-1.0); Monocytes % 5.2 % (1.7-9.3); Neutrophils % 72.8 % (37.0-80.0); Platelet Count 227 K/mm3 (142-424); Red Blood Count 3.92 M/mm3 (4.60-6.20); Red Cell Distribution Width 13.1 % (11.5-17.5); White Blood Count 9.6 K/mm3 (4.8-10.8)
[2018-06-26 14:29] LABS: Albumin Level 3.1 gm/dL (3.4-5.0); Anion Gap 14.3 mEq/L (5-15); Blood Urea Nitrogen 61 mg/dL (7-18); Calcium 8.3 mg/dL (8.5-10.1); Carbon Dioxide 26 mmol/L (21.0-32.0); Chloride 104 mmol/L (98-107); Estimated Glomerular Filt Rate 17 ml/min (>60); GFR (African American) 21 ML/MIN (>60); Glucose 332 mg/dL (74-106); Phosphorous 4.6 mg/dL (2.4-4.9); Sodium 139 mmol/L (136-145)
[2018-06-26 14:31] LABS: Potassium 5.3 mmoL/L (3.5-5.1)
[2018-06-26 14:34] LABS: Creatinine,Serum 3.66 mg/dL (0.70-1.30)
== END ==
PROVIDERS: Visit Provider Internal Medicine Nephrology
DX: N18.4 Chronic kidney disease, stage 4 (severe) (principal)
CPT/HCPCS: 36415; 80069; 85025

== ENCOUNTER → 2018-08-06 12:56 | Outpatient (POV) | payer MEDICARE, SELFPAY | PROVIDERS: Visit Provider Internal Medicine Nephrology | DX: Z00.00 Encounter for general adult medical examination without abnormal findings (principal) ==

== ENCOUNTER → 2018-10-26 08:28 | Outpatient (CLI) | payer MEDICARE, SELFPAY ==
[2018-10-26 08:32] LABS: Microscopic, Urine URINE MICROSCOPIC (MICROSCOPIC)
[2018-10-26 09:16] LABS: Basophils # 0.1 K/mm3 (0-0.2); Basophils % 0.6 % (0.1-2.0); Eosinophils # 0.3 K/mm3 (0.0-0.4); Eosinophils % 2.8 % (0.1-12.0); Hematocrit 37.8 % (42.0-52.0); Hemoglobin 12.2 g/dL (14.1-18.0); Lymphocytes # 1.9 K/mm3 (0.7-4.5); Lymphocytes % 18.6 % (10-50); Mean Corpuscular HGB Conc 32.2 g/dL (31.8-35.4); Mean Corpuscular Hemoglobin 27.9 pg (27.0-31.2); Mean Corpuscular Volume 86.5 fl (80-94); Mean Platelet Volume 7.5 fl (7.4-10.4); Monocytes # 0.7 K/mm3 (0.1-1.0); Monocytes % 7.3 % (1.7-9.3); Neutrophils # 7.1 K/mm3 (1.8-7.8); Neutrophils % 70.7 % (37.0-80.0); Platelet Count 239 K/mm3 (142-424); Red Blood Count 4.37 M/mm3 (4.60-6.20); Red Cell Distribution Width 12.8 % (11.5-17.5)
[2018-10-26 12:27] LABS: Albumin Level 3.2 gm/dL (3.4-5.0); Anion Gap 16.4 mEq/L (5-15); Blood Urea Nitrogen 67 mg/dL (7-18); Calcium 8.8 mg/dL (8.5-10.1); Carbon Dioxide 24 mmol/L (21.0-32.0); Chloride 108 mmol/L (98-107); Estimated Glomerular Filt Rate 15 ml/min (>60); GFR (African American) 18 ML/MIN (>60); Glucose 134 mg/dL (74-106); Potassium 5.4 mmoL/L (3.5-5.1); Sodium 143 mmol/L (136-145)
[2018-10-26 14:29] LABS: Creatinine,Serum 4.19 mg/dL (0.70-1.30)
[2018-10-26 17:41] LABS: Creatinine,Urine Random 74 mg/dL (20-320)
[2018-10-26 19:01] LABS: Appearance,Urine CLEAR (Clear); Bilirubin,Urine Negative (Negative); Blood, Urine 1+ (Negative); Color,Urine YELLOW (Yellow); Glucose,Urine (UA) TRACE (Negative); Ketones,Urine Negative (Negative); Leukocyte Esterase,Urine Negative (Negative); Nitrate,Urine Negative (Negative); PH,Urine 6.5 (5.0-8.5); Protein,Urine 3+ (Negative); Urobilinogen,Urine 0.2 EU/dl (0.2)
== END ==
PROVIDERS: Visit Provider Internal Medicine Nephrology
DX: N18.4 Chronic kidney disease, stage 4 (severe) (principal); R82.90 Unspecified abnormal findings in urine
CPT/HCPCS: 36415; 80069; 81001; 82570; 84155; 85025; 87086

== ENCOUNTER → 2018-10-29 14:34 | Outpatient (POV) | payer MEDICARE, SELFPAY | PROVIDERS: Visit Provider Internal Medicine Nephrology | DX: Z00.00 Encounter for general adult medical examination without abnormal findings (principal) ==

== ENCOUNTER → 2018-11-07 09:51 | Outpatient (CLI) | payer MEDICARE, SELFPAY ==
--- NOTE | 2018-11-07 10:10 | XR_ITS ---
XR foot wt bearing LT 3V HISTORY: ITS.REASON: hx of Diabetic Charcot ORDERING PHYSICIAN: Chantel Granado DPM PATIENT AGE: 52 years COMPARISON: None FINDINGS: No fracture or dislocation. No lytic or blastic change. There is normal mineralization.. There are mild osteoarthritic changes of the talonavicular joint. A well-corticated calcific density is present on the oblique view between the talonavicular region and calcaneocuboid joint. This may represent an osteophyte from the navicular. There is diffuse vascular calcification. There are osteoarthritic changes of the tibiotalar joint anteriorly. Hammertoe deformity involves the second toe. IMPRESSION: Osteoarthritic change of the midfoot and ankle. Hammertoe deformity of second toe
--- NOTE | 2018-11-07 10:10 | XR_ITS ---
XR foot wt bearing RT 3V HISTORY: Foot pain ITS.REASON: Hx of Diabetic Charcot ORDERING PHYSICIAN: Chantel Granado DPM PATIENT AGE: 52 years COMPARISON: None FINDINGS: There is collapse/destruction of the talus and navicular. Pes planus is present. Joint space irregularity is noted at the ankle joint with diffuse destruction and disorganization of the navicular. Bony debris is present at the ankle joint and at the navicular region. There is been prior fusion of the tarsal metatarsal joint. Overall, the findings are consistent with Charcot joint of the ankle and midfoot. There is diffuse vascular calcification. There is osteosclerosis with cortical thickening of the posterior aspect of the distal tibia. IMPRESSION: Charcot joint of the ankle and hindfoot and midfoot with prior fusion of the tarsal metatarsal junction with pes planus.
[2018-11-07 10:36] LABS: Basophils % 0.3 % (0.1-2.0); Eosinophils # 0.2 K/mm3 (0.0-0.4); Eosinophils % 1.8 % (0.1-12.0); Hematocrit 32.7 % (42.0-52.0); Hemoglobin 10.5 g/dL (14.1-18.0); Lymphocytes # 1.2 K/mm3 (0.7-4.5); Mean Corpuscular HGB Conc 32.3 g/dL (31.8-35.4); Mean Corpuscular Hemoglobin 27.8 pg (27.0-31.2); Mean Platelet Volume 7.7 fl (7.4-10.4); Monocytes # 0.8 K/mm3 (0.1-1.0); Monocytes % 5.6 % (1.7-9.3); Neutrophils # 11.3 K/mm3 (1.8-7.8); Neutrophils % 83.3 % (37.0-80.0); Platelet Count 309 K/mm3 (142-424); Red Cell Distribution Width 12.2 % (11.5-17.5); White Blood Count 13.6 K/mm3 (4.8-10.8)
[2018-11-07 10:53] LABS: Hemoglobin A1C 9.4 % (0.0-7.0)
[2018-11-07 11:25] LABS: Alanine Aminotransferase 49 U/L (12-78); Albumin Level 2.4 gm/dL (3.4-5.0); Albumin/Globulin Ratio 0.7 (1.1-1.8); Alkaline Phosphatase 139 U/L (46-116); Anion Gap 18.1 mEq/L (5-15); Aspartate Amino Transferase 30 U/L (15-37); Bilirubin,Total 0.2 mg/dL (0.2-1.0); Calcium 8.5 mg/dL (8.5-10.1); Carbon Dioxide 22 mmol/L (21.0-32.0); Chloride 101 mmol/L (98-107); Estimated Glomerular Filt Rate 11 ml/min (>60); GFR (African American) 14 ML/MIN (>60); Globulin 3.6 gm/dl (1.3-3.2); Glucose 230 mg/dL (74-106); Potassium 5.1 mmoL/L (3.5-5.1); Sodium 136 mmol/L (136-145)
[2018-11-07 11:39] LABS: Erythrocyte Sedimentation Rate > 140 mm/hr (0-20)
[2018-11-07 12:01] LABS: C-Reactive Protein 15.7 mg/L (0.0-0.9)
[2018-11-07 12:09] LABS: Blood Urea Nitrogen 90 mg/dL (7-18); Creatinine,Serum 5.35 mg/dL (0.70-1.30)
== END ==
PROVIDERS: PCP Family Medicine; Visit Provider Podiatrist
DX: E11.610 Type 2 diabetes mellitus with diabetic neuropathic arthropathy (principal); Z79.4 Long term (current) use of insulin
CPT/HCPCS: 36415; 73630; 80053; 83036; 85025; 85651; 86140

== ENCOUNTER 2018-11-14 10:00 | Outpatient (RCR) | payer MEDICARE, SELFPAY ==
--- NOTE | 2018-11-07 10:19 | HMH.PTOPWND ---
Rehab Outpt Wound Evaluation Rehab OP Wound Evaluation Start: 11/07/18 08:47 Freq: Status: Active Protocol: Document 11/07/18 09:51 KATERINE (Rec: 11/07/18 10:19 PHORNE [id number]) Electronically Signed By Marlon Palacio, PT 11/07/18 09:51 Subjective/History History History Pt is 52 yowm who presents with c/o left plantar foot wound x ~ 2 mos after stepping on a nail. He has hx of DM-II with neuropathy and did not realize he had such a bad wound. He also presents today with possible fx of the great toe. He reports that ~ 5 days ago he stepped wrong on a curb and bent my toes back which resulted in increased edema, hematoma, and blisters on all sides of the great toe. The blister on the dorsum of the left great toe is now open with moderate drainage and communicates to the webspace between the 1st and 2nd toes. He reports no pain, but is tender to palpation at the full depth of the original plantar foot wound. MD and DPM were notified fo his new condition and orders for X-ray to the left foot have been received. PMH: DM-II, Charcot foot, CKD and needs kidney transplant, CAD with RI, DVT right LE in the past. Subjective Subjective Pt reports being worried about his toe and foot at this time . He also reports he has MD appt on Monday11/12/18 at [facility] for bariatric surgery work-up. Wound Eval Wound Left Volar Toe - 2nd Digit Wound Type Diabetic Foot Ulcer Is This a Chronic Wound Yes Wound Length (cm) 1.0 Wound Width (cm) 1.0 Wound Depth (cm) 1.5 Wound Bed Appearance Yellow,White Percentage of Slough (%) 100 Wound Margins Description Well Defined Surrounding Tissue Appearance Macerated,Weeping Drainage Description Serosanguineous Drainage Amount Moderate Drainage Odor Slig
== END 2018-11-14 10:05 | disposition home or self-care (01) ==
LOC: PT 10:00
PROVIDERS: Visit Provider Family Medicine
DX: S91.312A Laceration without foreign body, left foot, initial encounter (principal)
CPT/HCPCS: 97163; 97597; 97598; 97760

== ENCOUNTER → 2018-11-14 10:27 | Outpatient (CLI) | payer MEDICARE, SELFPAY ==
--- NOTE | 2018-11-14 10:28 | US_ITS ---
US Arterial Lower Ext Rest bilateral Ordering Physician: Chantel Granado DPM Patient Age: 52 years: Male HISTORY: ITS.REASON: Skin Changes Current smoker. Hyperlipidemia hypertension prior [place]. Weak pulses both legs. No Claudication . Skin color changes both legs.. Vascular ulcers on left... With Skin color changes. TECHNIQUE: Segmental pressures obtained of both right and left leg. These are compared to brachial blood pressure to yield index at each level sampled including summary PATTI. The data sheets from the procedure are available in PACS FINDINGS Rest study only performed today No prior studies available for comparison. Blood pressures reported are in millimeters mercury. ====== RIGHT LEG PATTI = 1.36. Right TBI = 1.28 Brachial BP: 147 Thigh BP: BP 166 with index 1.1 Calf BP: Measures > 256 = noncompressible Ankle PT: BP BP 205 with index 1.36 Ankle DP : Measures > 256 = noncompressible.98 Digit =BP 190 with index 1.26 ===== LEFT LEG PATTI = NC/noncompressible1 Left TBI = unable to obtain. Patient has a dressing packing left foot Brachial BPD: 148 Thigh BP: BP 156 with index-1.02. Calf BP: BP 158 index 1.03 Ankle PT:BP 155 with index 1.01 Ankle DP: BP 152 with index 0.99 Digit = BP 122 with index 0.8 Normal Pulses and waveforms: Bilateral IMPRESSION:......... Patient results suggest diffuse, likely calcific, atherosclerotic disease with decreased compliance of vessels resulting. This resulted in noncompressibility and yields the elevated PATTI . space technologist did report & demonstrate Normal pulses & waveforms to the ankles bilaterally RIGHT LEG PATTI = 1. However the technologist did report .36. Right TBI = 1.28 LEFT LEG PATTI = NC/noncompressible Left TBI = unable to obtain. Patient has a dressing packing left foot Brachial BPD: 148
== END ==
PROVIDERS: PCP Family Medicine; Visit Provider Podiatrist
DX: E11.51 Type 2 diabetes mellitus with diabetic peripheral angiopathy without gangrene (principal); I73.9 Peripheral vascular disease, unspecified; R09.89 Other specified symptoms and signs involving the circulatory and respiratory systems; Z79.4 Long term (current) use of insulin
CPT/HCPCS: 87070; 87077; 87186; 87205; 93923

== ENCOUNTER 2018-11-15 09:43 | Observation (INO) ==
[2018-11-15 10:51] LABS: Calcium 8.8 mg/dL (8.5-10.1)
--- NOTE | 2018-11-15 13:20 | Progress Note ---
[facility] Anesthesia Record Part I Intake, IV Amount: 700 Estimated blood loss (mL): 0 Urine output (mL): 0 Blood Pressure: 148/97 SaO2: 97 Pulse Rate: 81 Respiratory Rate: 12 Temperature: 98.3 F Patient is:: Awake, Stable Stable to PACU at:: 13:15
--- NOTE | 2018-11-15 13:20 | Progress Note ---
[facility] Anesthesia Checklist - Structural Data Admitted From: Home Planned Operative Procedure/s: amputation l great toe Consent for Planned Operative Procedure(s) Verified: Yes - Airway Assessment C-Spine Mobility Assessed: Yes TMJ Mobility Assessed: Yes Dentition: Poor Dentition - Neurological Assessment Level of Consciousness: Awake, Alert, Appropriate - Anesthesia Plan Anesthesia Risk discussed: Yes Anesthesia Plan: Verified ASA Class: IV Anesthesia Type: General [facility] History I have reviewed the patient's past medical history: Yes Medical History: Reports:: Atherosclerotic Heart Disease, BPH, Cardiomyopathy, Congestive Heart Failure, Coronary Artery Disease, Deep Vein Thrombosis, Diabetes Mellitus Type 2, Gastroesophageal Reflux Disease(GERD), Hyperlipidemia, Hypertension, Myocardial Infarction, Renal Disease Denies:: Cancer, Diabetes Mellitus Type 1, Internal Pacemaker, MRSA, Seizures *Have you ever received a pneumonia vaccine?: Yes *Have you received a flu vaccine this season?: Yes Other Medical History: Denies: Blood Transfusion Reaction Laterality Cases: Right: Other Other Surgeries: Yes: Colonoscopy, Thyroidectomy. No: Pacemaker Amputation: Yes Fractures: No - *Social History Educational Level: Attended College Smoking Status: Never smoker Tobacco Type: smokeless tobacco # Packs/Day (cigarettes): 1 Alcohol Intake: never Alcohol Intake Frequency:: other Substance Use Type: denies use *Occupational Status:: disabled, other Housing: house *Travel in the last 8 weeks: Inside the [place] - Psychiatric History Expresses thoughts of harming self/others: None Suicide Plan Description: No Plan Family Hx:: Coronary Artery Disease, Diabetes, Heart Attack, Hyperlipidemia
--- NOTE | 2018-11-15 13:20 | Operative Note ---
Date of procedure: 11/15/18 Pre-op Diagnosis:: 1. Left foot infection 2. Left foot gangrene 3. Left foot osteomyelitis 4. Left foot DM ulcer Post-op Diagnosis:: Same Procedure performed:: 1. Left foot incision and drainage 2. Left 1st partial ray (toe-met) amputation 3. Left 2nd partial ray (toe-met) amputation Surgeon:: Chantel Granado DPM SUPERVISOR CONTACT LENS:: Tristin Trevizo Anesthesia: GETA Estimated blood loss (mL): 30 Clinical Note:: See H&P Operative findings:: Wet gangrene with necrotic tissue. The left great toe has dry gangrene to the d istal tip. There is a ring surrounding the first MPJ where the gangrene and and is wet with macerated necrotic sloughy tissue. The area probes to the first metatarsal. There is a second ulcer noted this to the first inner space plantarly that probes to the first metatarsal as well as the second metatarsal. The wound plantarly measures 1.11.2, necrotic base. Severe malodor noted with slough and purulence. Operative note:: On this date and time patient was deemed an appropriate surgical candidate. With informed consent signed, the patient was taken to the operating theater. The patient was positioned supine. General anesthesia was induced. No tourniquet used. Left 1-2nd toe irrigation and debridement, 1-2nd partial ray (toe and partial met) amputation: The left lower extremity was prepped and drapped in normal sterile fashion. Attention was directed to the left 1-2nd toe where a gangrene, purulence was noted extending over the PIPJ of hallux. There was exposed deep fascia, extensor tendon and bone. Plantar left 2nd met ulcer, probes to bone and connected to 1st MPJ. Cellulitis is noted extending to the MPJ. Wound probed directly to the bone and <0.5 cc drainage was coming from the wound site (pre-operatively). A fish mouth incision was mapped out around the 1-2nd toes and distal metatarsals. Utilizing a 15 blade dissection was carried down sharply to the level of the bone around the 1-2nd digits which were disarticulated from the metatarsal head. The hallux proximal phalanx bone was soft and crumbly and had a slight malodor to it. Portion of it was cut and sent for bone culture and the other part was sent for bone biopsy for pathology. Attention was then directed to the 1st met. The head was soft and easily broken, discolored with distal cortical erosions noted. The head of the 1-2nd mets were transected and sent for bone culture. The 1st met proximal piece was sent as proximal margin. The 2nd met head was intact with minor cortical erosions, there was discoloration and early signs of osteomyelitis. Next 3 L of bacitracin irrigation was used to flush the wound with pulse lavage. The wound was reexplored and no further signs of infection noted. Bleeding controlled. Vessels ligated with electrocautery or tied as need minimal to no blood loss distally but some bleeding proximal amp site. ZELDA drain inserted. 3-0 Prolene and skin david was used to close skin in an interrupted simple suture fashion. The wounds were cleansed. Betadine, dry sterile dressing was then applied to the left foot. The patient was awoken from anesthesia and transferred to recovery with vital signs stable and neurovascular status intact. Materials: 3-0 Prolene Skin david ZELDA drain Discharge/Plan: Transfer back to the floor. Patient is to maintain dressing clean dry and intact. Continue antibiotics. Strict non weight bearing to the left lower extremity with DME assistance (needs walker). Obtain post op films, left foot, 3 views. Plan for dressing change tomorrow by myself. Tourniquet time (min): 0 Condition: stable Disposition: floor Specimens:: Left wound culture Left hallux bone culture Left hallux bone path Left 1st met bone culture Left 1st met bone path proximal margin Left 2nd met bone culture Complications:: None
--- NOTE | 2018-11-15 13:21 | Progress Note ---
[facility] Anesthesia Record Part II Discharge Time: 13:45 Destination: floor PACU nurse assessment reviewed?: Yes Patient Condition:: Good Anesthesia Complications:: None Swallowing reflex intact?: Yes Cyanosis?: No
--- NOTE | 2018-11-15 14:30 | History & Physical Report ---
*Admission Date: 11/15/18 <RudiMaría Elena 11/15/18 14:33> *Chief complaint: toe pain <María Elena Grijalva 11/15/18 14:33> *History of present illness: Mr. Madden is a 52yo male who was seen in the office of [facility] on 11/01/2018 for a wound on his left foot. He had stepped on a nail approximately 2 months prior and the wound had worsened since then. He had been putting Neosporin on the area but there was some dirt in the wound and he had some drainage. Dr. Davis saw the patient and put him on cefuroxime and did a wound culture. His wound culture came back positive for strep faecalis which was sensitive to the cefuroxime. This was continued. He was referred to wound care. In between the time he saw Dr. Davis and saw the senior education specialist, he hit his big toe and sustained a wound to it as well. He was referred to Dr. Granado. She tried to treat the wounds outpatient. The patient failed outpatient therapy and when he returned to her office his toe was black. She therefore felt he would need amputation of the first and second toes as well as an I&D of the foot. Patient was taken to surgery today and will be admitted overnight for observation, antibiotics, and wound care. <María Elena Grijalva 11/15/18 15:53> [facility] History I have reviewed the patient's past medical history: Yes <María Elena Grijalva 11/15/18 14:33> Medical History: Reports:: Atherosclerotic Heart Disease, BPH, Cardiomyopathy, Congestive Heart Failure, Coronary Artery Disease, Deep Vein Thrombosis, Diabetes Mellitus Type 2, Gastroesophageal Reflux Disease(GERD), Hyperlipidemia, Hypertension, Myocardial Infarction, Renal Disease (stage 4) Denies:: Cancer, Diabetes Mellitus Type 1, Internal Pacemaker, MRSA, Seizures <María Elena Grijalva 11/15/18 15:16> *Have you ever received a pneumonia vaccine?: Yes <María Elena Grijalva 11/15/18 14:33> *Have you received a flu vaccine this season?: Yes <María Elena Grijalva 11/15/18 14:33> Other Medical History: Reports: Other (sleep apnea). Denies: Blood Transfusion Reaction <María Elena Grijalva 11/15/18 15:16> Laterality Cases: Right: Other (sacral decubitus debridement, right foot I&D) <María Elena Grijalva 11/15/18 15:16> Other Surgeries: Yes: Cardiac Catheterization, Colonoscopy, Coronary Stent, Thyroidectomy, Other (orchiectomy, amputation left hand middle finger). No: Pacemaker <María Elena Grijalva 11/15/18 15:16> Amputation: Yes <Tony Grijalvaa 11/15/18 14:33> Fractures: No <María Elena Grijalva 11/15/18 14:33> - *Social History Educational Level: Attended College <María Elena Grijalva 11/15/18 14:33> Smoking Status: Never smoker <María Elena Grijalva 11/15/18 14:33> Tobacco Type: smokeless tobacco <María Elena Grijalva 11/15/18 14:33> # Packs/Day (cigarettes): 1 <María Elena Grijalva 11/15/18 14:33> Alcohol Intake: never <María Elena Grijalva 11/15/18 14:33> Alcohol Intake Frequency:: other <RudiMaría Elena 11/15/18 14:33> Substance Use Type: denies use <Tony Grijalvaa 11/15/18 14:33> *Occupational Status:: disabled, other <María Elena Grijalva 11/15/18 14:33> Housing: house <María Elena Grijalva 11/15/18 14:33> *Travel in the last 8 weeks: Inside the [place] <María Elena Grijalva 11/15/18 14:33> - Psychiatric History Expresses thoughts of harming self/others: None <María Elena Grijalva 11/15/18 14:33> Suicide Plan Description: No Plan <María Elena Grijalva 11/15/18 14:33> Family Hx:: Coronary Artery Disease, Diabetes, Heart Attack, Hyperlipidemia <María Elena Grijalva 11/15/18 14:33> Review of Systems - Constitutional Denies chills, Denies fever(s), Denies weakness <María Elena Grijalva 11/15/18 15:53> - Eyes Denies blurry vision, Denies double vision <María Elena Grijalva 11/15/18 15:53> - ENT Denies nasal congestion, Denies sore throat, Denies dizziness <María Elena Grijalva 11/15/18 15:53> - *Cardiovascular Denies chest pain, Denies shortness of breath, Denies rapid, pounding, or irregular heartbeat <María Elena Grijalva 11/15/18 15:53> - *Respiratory Denies chest congestion, Denies cough, Denies shortness of breath <María Elena Grijalva 11/15/18 15:53> - *Gastrointestinal Denies abdominal pain, Denies loose stools, Denies nausea, Denies vomiting <María Elena Grijalva 11/15/18 15:53> - *Genitourinary Denies difficulty urinating, Denies painful urination <María Elena Grijalva 11/15/18 15:53> - *Musculoskeletal Reports joint pain (left foot rausch) <María Elena Grijalva 11/15/18 15:53> - *Neurologic Denies confusion, Denies dizziness, Denies weakness <María Elena Grijalva 11/15/18 15:53> Meds Home Medications Medication Instructions Recorded Confirmed Type furosemide 40 mg tablet 40 mg PO DAILY 05/23/17 11/15/18 History metolazone 5 mg tablet 5 mg PO BID tab 05/23/17 11/15/18 History Ascorbic Acid [Vitamin C 500mg 500 mg PO DAILY 06/20/17 11/15/18 History tablet] Cyanocobalamin (Vitamin B-12) 1,000 mcg PO DAILY 06/20/17 11/15/18 History [Vitamin B-12 1000mcg Tablet] Fenofibrate [Tricor 54mg tablet] 54 mg PO DAILY 06/20/17 11/15/18 History Gabapentin [Neurontin 600mg 600 mg PO BID 06/20/17 11/15/18 History tablet] Insulin Regular, Human [Humulin R] 90 unit SQ HS 06/20/17 11/15/18 History clindamycin HCl 300 mg capsule 300 mg PO TID 14 Days #42 cap 11/07/18 11/15/18 Rx Aspirin [Aspirin 81mg EC Tab] 81 mg PO DAILY 11/15/18 11/15/18 History Dulaglutide [Trulicity] 0 unit SQ WEEKLY 11/15/18 11/15/18 History Hydralazine HCl [Hydralazine HCl 50 mg PO DAILY 11/15/18 11/15/18 History 25mg Tablet] Insulin Regular, Human [Humulin R 50 unit SQ DAILY 11/15/18 11/15/18 History Insulin 100 Units/mL 10mL Vial] atorvastatin 20 mg tablet 20 mg PO DAILY tab 11/15/18 11/15/18 History carvedilol 12.5 mg tablet 12.5 mg PO BID tab 11/15/18 11/15/18 History cholecalciferol (vitamin D3) 2,000 2,000 units PO DAILY #90 cap 11/15/18 11/15/18 History unit capsule <Bello Davis - 11/15/18 18:51> Allergies Allergy/AdvReac Type Severity Reaction Status Date / Time Sulfa (Sulfonamide Allergy Unknown Verified 11/15/18 08:59 Antibiotics) <Bello Davis - 11/15/18 18:51> Exam Vital signs and Labs for Last 24 Hours: Temp Pulse Resp BP Pulse Ox 97.9 F 77 16 145/96 H 96 11/15/18 16:45 11/15/18 16:45 11/15/18 16:45 11/15/18 16:45 11/15/18 16:45 Laboratory Results - last 24 hr 11/15/18 10:18: Sodium 137, Potassium 5.0, Chloride 104, Carbon Dioxide 21, Anion Gap 17.0 H, BUN 86 H, Creatinine 4.62 H, Estimated Creat Clear 35, Estimated GFR 13 L*, Est GFR ( Amer) 16 L*, Glucose 245 H, Calcium 8.8 11/15/18 10:18: POC Glucose 236 H 11/15/18 16:32: POC Glucose 190 H <Bello Davis - 11/15/18 18:51> Temp Pulse Resp BP Pulse Ox 97.9 F 76 16 141/91 H 98 11/15/18 14:15 11/15/18 14:15 11/15/18 14:15 11/15/18 14:15 11/15/18 14:15 Laboratory Results - last 24 hr 11/15/18 10:18: Sodium 137, Potassium 5.0, Chloride 104, Carbon Dioxide 21, Anion Gap 17.0 H, BUN 86 H, Creatinine 4.62 H, Estimated Creat Clear 35, Estimated GFR 13 L*, Est GFR ( Amer) 16 L*, Glucose 245 H, Calcium 8.8 11/15/18 10:18: POC Glucose 236 H <María Elena Grijalva - 11/15/18 15:16> I & O for Last 24 hours: Intake & Output 11/12/18 11/13/18 11/14/18 11/15/18 23:59 23:59 23:59 23:59 Intake Total 1300 / 1300 Output Total 600 / 600 Balance 700 / 700 Weight 295 lb <Bello Davis - 11/15/18 18:51> Intake & Output 11/13/18 11/14/18 11/15/18 11/16/18 11:59 11:59 11:59 11:59 Intake Total 700 / 700 Balance 700 / 700 Weight 293 lb <María Elena Grijalva - 11/15/18 14:33> Microbiology Reports for the Last 24 Hours: Microbiology 11/15/18 12:40 Toe,Left Great Gram Stain - Final <Bello Davis - 11/15/18 18:51> - Constitutional no acute distress <María Elena Grijalva 11/15/18 15:53> - *Routine HEENT Exam Head: Present: normocephalic <María Elena Grijalva 11/15/18 15:53> Eye: Present: EOMI, PERRL <María Elena Grijalva - 11/15/18 15:53> ENT: Present: mucous membranes moist <María Elena Grijalva 11/15/18 15:53> - *Routine Neck Exam Present: supple. Absent: lymphadenopathy <María Elena Grijalva - 11/15/18 15:53> - *Routine Respiratory Exam Present: CTA bilaterally <María Elena Grijalva 11/15/18 15:53> - *Routine Cardiovascular Exam Present: RRR <María Elena Grijalva 11/15/18 15:53> - *Routine Abdominal Exam Present: soft, normoactive bowel sounds. Absent: tenderness <RudiMaría Elena 11/15/18 15:53> - *Routine Extremities Exam Absent: cyanosis, clubbing, edema <DashrafaMaría Elena 11/15/18 15:53> - *Routine Skin Exam Present: warm. Absent: rash <María Elena Grijalva 11/15/18 15:53> Comments: left foot with dressing and drain in place <María Elena Grijalva 11/15/18 15:53> - *Routine Neurological Exam Present: alert, oriented X3 <María Elena Grijalva 11/15/18 15:53> H&P: Result - Impressions CXR - Negative chest, no acute finding <María Elena Grijalva 11/15/18 15:53> Assessment and Plan (1) Foot osteomyelitis, left Current visit: Yes Status: Acute Category: Medical Code(s): M86.9 - Osteomyelitis, unspecified (2) Ulcer of left foot due to type 2 diabetes mellitus Current visit: Yes Status: Acute Category: Medical Code(s): E11.621 - Type 2 diabetes mellitus with foot ulcer; L97.529 - Non-pressure chronic ulcer of other part of left foot with unspecified severity (3) Status post amputation of toe of left foot Current visit: Yes Status: Acute Category: Medical Code(s): Z89.422 - Acquired absence of other left toe(s) (4) Peripheral vascular disease Current visit: No Status: Chronic Category: Medical Code(s): I73.9 - Peripheral vascular disease, unspecified (5) Small vessel arterial disease due to type 2 diabetes mellitus Current visit: No Status: Chronic Category: Medical Code(s): E11.51 - Type 2 diabetes mellitus with diabetic peripheral angiopathy without gangrene (6) CAD (coronary artery disease) Current visit: No Status: Chronic Qualifiers: Category: Medical Code(s): I25.10 - Atherosclerotic heart disease of habematolel coronary artery without angina pectoris (7) Cardiomyopathy Current visit: No Status: Chronic Qualifiers: Category: Medical Code(s): I42.9 - Cardiomyopathy, unspecified (8) Chronic kidney disease (CKD) Current visit: No Status: Chronic Qualifiers: Category: Medical Code(s): N18.9 - Chronic kidney disease, unspecified (9) HHD (hypertensive heart disease) Current visit: No Status: Chronic Qualifiers: Category: Medical Code(s): I11.9 - Hypertensive heart disease without heart failure (10) HLD (hyperlipidemia) Current visit: No Status: Chronic Qualifiers: Category: Medical Code(s): E78.5 - Hyperlipidemia, unspecified (11) HTN (hypertension) Current visit: No Status: Chronic Category: Medical Code(s): I10 - Essential (primary) hypertension (12) Type 2 diabetes mellitus Current visit: No Status: Chronic Category: Medical Code(s): E11.9 - Type 2 diabetes mellitus without c omplications <Bello Davis - 11/15/18 18:51> (1) Foot osteomyelitis, left Current visit: Yes Status: Acute Category: Medical Code(s): M86.9 - Osteomyelitis, unspecified (2) Ulcer of left foot due to type 2 diabetes mellitus Current visit: Yes Status: Acute Category: Medical Code(s): E11.621 - Type 2 diabetes mellitus with foot ulcer; L97.529 - Non-pressure chronic ulcer of other part of left foot with unspecified severity (3) Status post amputation of toe of left foot Current visit: Yes Status: Acute Category: Medical Code(s): Z89.422 - Acquired absence of other left toe(s) (4) Peripheral vascular disease Current visit: No Status: Chronic Category: Medical Code(s): I73.9 - Peripheral vascular disease, unspecified (5) Small vessel arterial disease due to type 2 diabetes mellitus Current visit: No Status: Chronic Category: Medical Code(s): E11.51 - Type 2 diabetes mellitus with diabetic peripheral angiopathy without gangrene (6) CAD (coronary artery disease) Current visit: No Status: Chronic Category: Medical Code(s): I25.10 - Atherosclerotic heart disease of habematolel coronary artery without angina pectoris (7) Cardiomyopathy Current visit: No Status: Chronic Category: Medical Code(s): I42.9 - Cardiomyopathy, unspecified (8) Chronic kidney disease (CKD) Current visit: No Status: Chronic Category: Medical Code(s): N18.9 - Chronic kidney disease, unspecified (9) HHD (hypertensive heart disease) Current visit: No Status: Chronic Category: Medical Code(s): I11.9 - Hypertensive heart disease without heart failure (10) HLD (hyperlipidemia) Current visit: No Status: Chronic Category: Medical Code(s): E78.5 - Hyperlipidemia, unspecified (11) HTN (hypertension) Current visit: No Status: Chronic Category: Medical Code(s): I10 - Essential (primary) hypertension (12) Type 2 diabetes mellitus Current visit: No Status: Chronic Category: Medical Code(s): E11.9 - Type 2 diabetes mellitus without complications <María Elena Grijalva - 11/15/18 15:49> - Assessment and plan all Dx Assessment and Plan for all problems:: Saw patient, agree with above note. <Bello Davis - 11/15/18 18:51> The patient will be kept overnight for monitoring. The plan is to start him on both daptomycin IV and clindamycin p.o. Dr. Granado will recheck the patient's foot tomorrow and if stable, he can be discharged home on IV daptomycin every 48 hours and oral clindamycin. <María Elena Grijalva - 11/15/18 15:53>
--- NOTE | 2018-11-15 19:00 | Consult Report ---
*Admission Date: 11/15/18 *Reason for consult:: Post Op Left Foot Amp *History of present illness: Mr. Madden is a 52yo male who was seen in the office of [facility] on 11/01/2018 for a wound on his left foot. He had stepped on a nail approximately 2 months prior and the wound had worsened since then. He had been putting Neosporin on the area but there was some dirt in the wound and he had some d rainage. Dr. Davis saw the patient and put him on cefuroxime and did a wound culture. His wound culture came back positive for strep faecalis which was sensitive to the cefuroxime. This was continued. He was referred to wound care. In between the time he saw Dr. Davis and saw the cost specialist, he hit his big toe and sustained a wound to it as well. He was referred to Dr. Granado. She tried to treat the wounds outpatient. The patient failed outpatient therapy and when he returned to her office his toe was black. She therefore felt he would need amputation of the first and second toes as well as an I&D of the foot. Patient was taken to surgery today and will be admitted overnight for observation, antibiotics, and wound care. Review of Systems - Review of Systems Review of systems:: pertinent systems reviewed and negative unless documented below - Constitutional Denies chills - Eyes Denies blurry vision - ENT Denies abnormal hearing - *Cardiovascular Denies chest pain, Denies shortness of breath - *Respiratory Denies cough, Denies shortness of breath - *Gastrointestinal Denies abdominal pain - *Genitourinary Reports difficulty urinating - *Musculoskeletal Reports joint swelling, Reports stiffness - Integumentary/Breasts Reports hair loss, Reports nail changes, Reports skin ulcer - *Neurologic Denies abnormal walking, Denies confusion, Denies dizziness, Denies weakness - Psychiatric Denies behavioral changes - Endocrine Reports cold intolerance - Hematologic/Lymphatic Reports easy bruising - Allergic/Immunologic Reports GI upset with certain foods [facility] History I have reviewed the patient's past medical history: Yes Medical History: Reports:: Atherosclerotic Heart Disease, BPH, Cardiomyopathy, Congestive Heart Failure, Coronary Artery Disease, Deep Vein Thrombosis, Diabetes Mellitus Type 2, Gastroesophageal Reflux Disease(GERD), Hyperlipidemia, Hypertension, Myocardial Infarction, Renal Disease (stage 4) Denies:: Cancer, Diabetes Mellitus Type 1, Internal Pacemaker, MRSA, Seizures *Have you ever received a pneumonia vaccine?: Yes *Have you received a flu vaccine this season?: Yes Other Medical History: Reports: Other (sleep apnea). Denies: Blood Transfusion Reaction Laterality Cases: Right: Other (sacral decubitus debridement, right foot I&D) Other Surgeries: Yes: Cardiac Catheterization, Colonoscopy, Coronary Stent, Th yroidectomy, Other (orchiectomy, amputation left hand middle finger). No: Pacemaker Amputation: Yes Fractures: No - *Social History Educational Level: Attended College Smoking Status: Never smoker Tobacco Type: smokeless tobacco # Packs/Day (cigarettes): 1 Alcohol Intake: never Alcohol Intake Frequency:: other Substance Use Type: denies use *Occupational Status:: disabled, other Housing: house Household Members: none *Travel in the last 8 weeks: None - Psychiatric History Expresses thoughts of harming self/others: None Suicide Plan Description: No Plan Family Hx:: Coronary Artery Disease, Diabetes, Heart Attack, Hyperlipidemia Meds Home Medications Medication Instructions Recorded Confirmed Type furosemide 40 mg tablet 40 mg PO DAILY 05/23/17 11/15/18 History metolazone 5 mg tablet 5 mg PO BID tab 05/23/17 11/15/18 History Ascorbic Acid [Vitamin C 500mg 500 mg PO DAILY 06/20/17 11/15/18 History tablet] Cyanocobalamin (Vitamin B-12) 1,000 mcg PO DAILY 06/20/17 11/15/18 History [Vitamin B-12 1000mcg Tablet] Fenofibrate [Tricor 54mg tablet] 54 mg PO DAILY 06/20/17 11/15/18 History Gabapentin [Neurontin 600mg 600 mg PO BID 06/20/17 11/15/18 History tablet] Insulin Regular, Human [Humulin R] 90 unit SQ HS 06/20/17 11/15/18 History clindamycin HCl 300 mg capsule 300 mg PO TID 14 Days #42 cap 11/07/18 11/15/18 Rx Aspirin [Aspirin 81mg EC Tab] 81 mg PO DAILY 11/15/18 11/15/18 History Dulaglutide [Trulicity] 0 unit SQ WEEKLY 11/15/18 11/15/18 History Hydralazine HCl [Hydralazine HCl 50 mg PO DAILY 11/15/18 11/15/18 History 25mg Tablet] Insulin Regular, Human [Humulin R 50 unit SQ DAILY 11/15/18 11/15/18 History Insulin 100 Units/mL 10mL Vial] atorvastatin 20 mg tablet 20 mg PO DAILY tab 11/15/18 11/15/18 History carvedilol 12.5 mg tablet 12.5 mg PO BID tab 11/15/18 11/15/18 History cholecalciferol (vitamin D3) 2,000 2,000 units PO DAILY #90 cap 11/15/18 11/15/18 History unit capsule Allergies Allergy/AdvReac Type Severity Reaction Status Date / Time Sulfa (Sulfonamide Allergy Unknown Verified 11/15/18 08:59 Antibiotics) Exam Vital signs and Labs for Last 24 Hours: Temp Pulse Resp BP Pulse Ox 98.1 F 81 16 146/95 H 100 11/15/18 18:45 11/15/18 18:45 11/15/18 18:45 11/15/18 18:45 11/15/18 18:45 Laboratory Results - last 24 hr 11/15/18 10:18: Sodium 137, Potassium 5.0, Chloride 104, Carbon Dioxide 21, Anion Gap 17.0 H, BUN 86 H, Creatinine 4.62 H, Estimated Creat Clear 35, Estimated GFR 13 L*, Est GFR ( Amer) 16 L*, Glucose 245 H, Calcium 8.8 11/15/18 10:18: POC Glucose 236 H 11/15/18 16:32: POC Glucose 190 H I & O for Last 24 hours: Intake & Output 11/13/18 11/14/18 11/15/18 11/16/18 11:59 11:59 11:59 11:59 Intake Total 1300 / 1300 Output Total 600 / 600 Balance 700 / 700 Weight 293 lb 295 lb Microbiology Reports for the Last 24 Hours: Microbiology 11/15/18 12:40 Toe,Left Great Gram Stain - Final - *Routine HEENT Exam Head: Present: normocephalic Eye: Present: PERRL - *Routine Neck Exam Present: supple - *Routine Respiratory Exam Present: accessory muscle use - *Routine Cardiovascular Exam Present: RRR - *Routine Abdominal Exam Present: soft - *Routine Rectal Exam Patient deferred: visual exam - *Routine Exam Patient deferred: penile exam - *Routine Extremities Exam Present: edema, tenderness, pallor - *Routine Skin Exam Present: erythema, wounds, gangrene - *Routine Neurological Exam Present: alert, oriented X3 - Detailed Lower Extremity Exam Foot/Toes: Left amputation Comments: Left foot dressing clean dry and intact. ZELDA drain intact. Status post amputation of the left first and second partial ray's. This includes first and second toes and part of the metatarsals. Soft nontender calves bilaterally. Decreased absent light touch sensation. Decreased pedal pulses. Results - Labs Result Diagrams: 11/15/18 10:18 Labs: Abnormal lab results 11/15/18 11/15/18 11/15/18 Range/Units 10:18 10:18 16:32 Anion Gap 17.0 H (5-15) mEq/L BUN 86 H (7-18) mg/dL Creatinine 4.62 H (0.70-1.30) mg/dL Estimated GFR 13 L* (>60) ml/min Est GFR ( Amer) 16 L* (>60) ML/MIN Glucose 245 H (74-106) mg/dL POC Glucose 236 H 190 H (70-110) All other labs normal. - Diagnostic results Ankle/Foot x-ray: image reviewed (s/p left 1-2nd partial ray amp) Assessment and Plan (1) Foot osteomyelitis, left Current visit: Yes Status: Acute Category: Medical Code(s): M86.9 - Osteomyelitis, unspecified (2) Ulcer of left foot due to type 2 diabetes mellitus Current visit: Yes Status: Acute Category: Medical Code(s): E11.621 - Type 2 diabetes mellitus with foot ulcer; L97.529 - Non-pressure chronic ulcer of other part of left foot with unspecified severity (3) Status post amputation of toe of left foot Current visit: Yes Status: Acute Category: Medical Code(s): Z89.422 - Acquired absence of other left toe(s) (4) Peripheral vascular disease Current visit: No Status: Chronic Category: Medical Code(s): I73.9 - P eripheral vascular disease, unspecified (5) Small vessel arterial disease due to type 2 diabetes mellitus Current visit: No Status: Chronic Category: Medical Code(s): E11.51 - Type 2 diabetes mellitus with diabetic peripheral angiopathy without gangrene (6) CAD (coronary artery disease) Current visit: No Status: Chronic Qualifiers: Category: Medical Code(s): I25.10 - Atherosclerotic heart disease of [place] coronary artery without angina pectoris (7) Cardiomyopathy Current visit: No Status: Chronic Qualifiers: Category: Medical Code(s): I42.9 - Cardiomyopathy, unspecified (8) Chronic kidney disease (CKD) Current visit: No Status: Chronic Qualifiers: Category: Medical Code(s): N18.9 - Chronic kidney disease, unspecified (9) HHD (hypertensive heart disease) Current visit: No Status: Chronic Qualifiers: Category: Medical Code(s): I11.9 - Hypertensive heart disease without heart failure (10) HLD (hyperlipidemia) Current visit: No Status: Chronic Qualifiers: Category: Medical Code(s): E78.5 - Hyperlipidemia, unspecified (11) HTN (hypertension) Current visit: No Status: Chronic Category: Medical Code(s): I10 - Essential (primary) hypertension (12) Type 2 diabetes mellitus Current visit: No Status: Chronic Category: Medical Code(s): E11.9 - Type 2 diabetes mellitus without complications - Assessment and plan all Dx Assessment and Plan for all problems:: Status post left foot incision and drainage, 1-2nd partial ray (toe, met) amputation DOS: 11/15/18 Intra-Op findings: Necrotic malodorous soft tissue and bone noted. Intraoperative wound culture, bone culture and pathology specimens obtained. Recommend starting on IV antibiotics with PICC line. Patient will need outpatient therapy. Local wound care outpatient. Advised patient family and patient to be strict nonweightbearing in the short fracture boot with a walker. If patient is noncompliant with weightbearing, local wound care or antibiotic therapy he is high risk for more proximal amputation or below-knee amputation. Discharge/Plan: Maintain dressing clean dry and intact to the left lower extremity Nonweightbearing to LLE: walker Elevate on 2 pillows or foam ramp SCD and DVT prophylaxis ZELDA drain management Consult case management: Patient will need walker Discussed plan of care with Dr. Davis: The patient will be kept overnight for monitoring. The plan is to start him on both daptomycin IV and clindamycin p.o. Dr. Granado will recheck the patient's foot tomorrow and if stable, he can be discharged home on IV daptomycin every 48 hours and oral clindamycin.
[2018-11-16 06:18] LABS: Basophils # 0.1 K/mm3 (0-0.2); Basophils % 0.3 % (0.1-2.0); Eosinophils # 0.3 K/mm3 (0.0-0.4); Eosinophils % 1.8 % (0.1-12.0); Hematocrit 30.9 % (42.0-52.0); Hemoglobin 9.8 g/dL (14.1-18.0); Lymphocytes # 2.6 K/mm3 (0.7-4.5); Lymphocytes % 17.8 % (10-50); Mean Corpuscular HGB Conc 31.6 g/dL (31.8-35.4); Mean Platelet Volume 7.5 fl (7.4-10.4); Monocytes # 0.6 K/mm3 (0.1-1.0); Monocytes % 4.1 % (1.7-9.3); Neutrophils # 11.1 K/mm3 (1.8-7.8); Neutrophils % 75.9 % (37.0-80.0); Platelet Count 322 K/mm3 (142-424); Red Blood Count 3.36 M/mm3 (4.60-6.20); White Blood Count 14.6 K/mm3 (4.8-10.8)
[2018-11-16 06:25] LABS: Albumin Level 2.3 gm/dL (3.4-5.0); Albumin/Globulin Ratio 0.6 (1.1-1.8); Bilirubin,Total 0.2 mg/dL (0.2-1.0); C-Reactive Protein 1.4 mg/L (0.0-0.9); Globulin 3.7 gm/dl (1.3-3.2)
[2018-11-16 06:51] LABS: Calcium 8.2 mg/dL (8.5-10.1)
--- NOTE | 2018-11-16 07:39 | Pharmacy Consult Notes ---
[facility] Pharmacy VTE Monitoring - Patient Demographics Admission date: 11/15/18 Report Date: 11/16/18 Time: 07:38 Allergies/Adverse Reactions: Patient Allergies Sulfa (Sulfonamide Antibiotics) Allergy (Unknown, Verified 11/15/18 08:59) Height: 1.85 m Weight: 133.81 kg Patient Problems: Current Active Problems (Updated 11/15/18 @ 14:33 by SHARON Dior) Foot osteomyelitis, left (Acute) Ulcer of left foot due to type 2 diabetes mellitus (Acute) Status post amputation of toe of left foot (Acute) - VTE Risk Labs: VTE Related Lab Results Hgb 9.8 g/dL (14.1-18.0) L 11/16/18 05:25 Hct 30.9 % (42.0-52.0) L 11/16/18 05:25 Plt Count 322 K/mm3 (142-424) 11/16/18 05:25 BUN 77 mg/dL (7-18) H 11/16/18 05:25 Creatinine 4.32 mg/dL (0.70-1.30) H 11/16/18 05:25 Estimated Creat Clear 37 mL/min (50-200) 11/16/18 05:25 VTE Score: 8 VTE Risk Level: Moderate Risk Clinical Trial Participant: No - Prophylaxis VTE Prophylaxis Ordered?: Yes Types of VTE Prophylaxis: IPCS Knee High (POST OP) Location of Applied Device: Right Leg
--- NOTE | 2018-11-16 08:09 | Progress Note ---
<María Elena Grijalva - Last Filed: 11/16/18 08:08> Internal Medicine - PN: Subj *Date: 11/16/18 *Time: 08:08 Interval history: Patient states he did not sleep well last night due to pain in his foot. He has had pain pills but states they are not helping and requests some morphine this morning. He did eat a good breakfast. Exam Vital signs and Labs for Last 24 Hours: Temp Pulse Resp BP Pulse Ox 97.8 F 76 18 131/83 97 11/16/18 03:53 11/16/18 03:53 11/16/18 03:53 11/16/18 03:53 11/16/18 03:53 Laboratory Results - last 24 hr 11/15/18 10:18: Sodium 137, Potassium 5.0, Chloride 104, Carbon Dioxide 21, Anion Gap 17.0 H, BUN 86 H, Creatinine 4.62 H, Estimated Creat Clear 35, Estimated GFR 13 L*, Est GFR ( Amer) 16 L*, Glucose 245 H, Calcium 8.8 11/15/18 10:18: POC Glucose 236 H 11/15/18 16:32: POC Glucose 190 H 11/15/18 20:47: POC Glucose 134 H 11/16/18 05:25: WBC 14.6 H, RBC 3.36 L, Hgb 9.8 L, Hct 30.9 L, MCV 92.0, MCH 29.1, MCHC 31.6 L, RDW 13.0, Plt Count 322, MPV 7.5, Neut % (Auto) 75.9, Lymph % (Auto) 17.8, [place] % (Auto) 4.1, Eos % (Auto) 1.8, Baso % (Auto) 0.3, Neut # (Auto) 11.1 H, Lymph # (Auto) 2.6, [place] # (Auto) 0.6, Eos # (Auto) 0.3, Baso # (Auto) 0.1 11/16/18 05:25: Sodium 137, Potassium 5.0, Chloride 105, Carbon Dioxide 22, Anion Gap 15.0, BUN 77 H, Creatinine 4.32 H, Estimated Creat Clear 37, Estimated GFR 14 L*, Est GFR ( Amer) 17 L*, Glucose 172 H D, Calcium 8.2 L, Total Bilirubin 0.2, AST 10 L, ALT 16, Alkaline Phosphatase 126 H, C-Reactive Protein 1.4 H, Total Protein 6.0 L, Albumin 2.3 L, Globulin 3.7 H, Albumin/Globulin Ratio 0.6 L 11/16/18 05:38: POC Glucose 177 H I & O for Last 24 hours: Intake & Output 11/13/18 11/14/18 11/15/18 11/16/18 11:59 11:59 11:59 11:59 Intake Total 1400 / 1400 Output Total 2160 / 2160 Balance -760 / -760 Weight 293 lb 295 lb 0.009 oz Microbiology Reports for the Last 24 Hours: Microbiology 11/15/18 12:40 Toe,Left Great Gram Stain - Final - Constitutional no acute distress - *Routine Respiratory Exam Present: CTA bilaterally - *Routine Cardiovascular Exam Present: RRR - *Routine Abdominal Exam Present: soft, normoactive bowel sounds. Absent: tenderness - *Routine Extremities Exam Absent: cyanosis, clubbing, edema Comments: left foot with dressing and drain in place - *Routine Skin Exam Present: warm. Absent: rash - *Routine Neurological Exam Present: alert, oriented X3 Assessment and Plan (1) Foot osteomyelitis, left Current visit: Yes Status: Acute Category: Medical Code(s): M86.9 - Osteomyelitis, unspecified (2) Ulcer of left foot due to type 2 diabetes mellitus Current visit: Yes Status: Acute Category: Medical Code(s): E11.621 - Type 2 diabetes mellitus with foot ulcer; L97.529 - Non-pressure chronic ulcer of oth er part of left foot with unspecified severity (3) Status post amputation of toe of left foot Current visit: Yes Status: Acute Category: Medical Code(s): Z89.422 - Acquired absence of other left toe(s) (4) Peripheral vascular disease Current visit: No Status: Chronic Category: Medical Code(s): I73.9 - Peripheral vascular disease, unspecified (5) Small vessel arterial disease due to type 2 diabetes mellitus Current visit: No Status: Chronic Category: Medical Code(s): E11.51 - Type 2 diabetes mellitus with diabetic peripheral angiopathy without gangrene (6) CAD (coronary artery disease) Current visit: No Status: Chronic Category: Medical Code(s): I25.10 - Atherosclerotic heart disease of [place] coronary artery without angina pectoris (7) Cardiomyopathy Current visit: No Status: Chronic Category: Medical Code(s): I42.9 - Cardiomyopathy, unspecified (8) Chronic kidney disease (CKD) Current visit: No Status: Chronic Category: Medical Code(s): N18.9 - Chronic kidney disease, unspecified (9) HHD (hypertensive heart disease) Current visit: No Status: Chronic Category: Medical Code(s): I11.9 - Hypertensive heart disease without heart failure (10) HLD (hyperlipidemia) Current visit: No Status: Chronic Category: Medical Code(s): E78.5 - Hyperlipidemia, unspecified (11) HTN (hypertension) Current visit: No Status: Chronic Category: Medical Code(s): I10 - Essential (primary) hypertension (12) Type 2 diabetes mellitus Current visit: No Status: Chronic Category: Medical Code(s): E11.9 - Type 2 diabetes mellitus without complications - Assessment and plan all Dx Assessment and Plan for all problems:: Dr. Granado to see the patient today and change his dressing. If he is stable, he can be discharged home on daptomycin every 48 hours and clindamycin p.o. <Bello Davis - Last Filed: 11/16/18 08:32> Internal Medicine - PN: Subj *Date: 11/16/18 *Time: 08:31 Exam Vital signs and Labs for Last 24 Hours: Temp Pulse Resp BP Pulse Ox 98.1 F 83 18 148/87 H 98 11/16/18 08:00 11/16/18 08:00 11/16/18 08:00 11/16/18 08:00 11/16/18 08:00 Laboratory Results - last 24 hr 11/15/18 10:18: Sodium 137, Potassium 5.0, Chloride 104, Carbon Dioxide 21, Anion Gap 17.0 H, BUN 86 H, Creatinine 4.62 H, Estimated Creat Clear 35, Estimated GFR 13 L*, Est GFR ( Amer) 16 L*, Glucose 245 H, Calcium 8.8 11/15/18 10:18: POC Glucose 236 H 11/15/18 16:32: POC Glucose 190 H 11/15/18 20:47: POC Glucose 134 H 11/16/18 05:25: WBC 14.6 H, RBC 3.36 L, Hgb 9.8 L, Hct 30.9 L, MCV 92.0, MCH 29.1, MCHC 31.6 L, RDW 13.0, Plt Count 322, MPV 7.5, Neut % (Auto) 75.9, Lymph % (Auto) 17.8, [place] % (Auto) 4.1, Eos % (Auto) 1.8, Baso % (Auto) 0.3, Neut # (Auto) 11.1 H, Lymph # (Auto) 2.6, [place] # (Auto) 0.6, Eos # (Auto) 0.3, Baso # (Auto) 0.1 11/16/18 05:25: ESR 106 H 11/16/18 05:25: Sodium 137, Potassium 5.0, Chloride 105, Carbon Dioxide 22, Anion Gap 15.0, BUN 77 H, Creatinine 4.32 H, Estimated Creat Clear 37, Estimated GFR 14 L*, Est GFR ( Amer) 17 L*, Glucose 172 H D, Calcium 8.2 L, Total Bilirubin 0.2, AST 10 L, ALT 16, Alkaline Phosphatase 126 H, C-Reactive Protein 1.4 H, Total Protein 6.0 L, Albumin 2.3 L, Globulin 3.7 H, Albumin/Globulin Ratio 0.6 L 11/16/18 05:38: POC Glucose 177 H I & O for Last 24 hours: Intake & Output 11/13/18 11/14/18 11/15/18 11/16/18 23:59 23:59 23:59 23:59 Intake Total 1300 / 1300 580 / 580 Output Total 1500 / 1500 660 / 660 Balance -200 / -200 -80 / -80 Weight 295 lb 295 lb 0.009 oz Microbiology Reports for the Last 24 Hours: Microbiology 11/15/18 12:40 Toe,Left Great Gram Stain - Final Assessment and Plan (1) Foot osteomyelitis, left Current visit: Yes Status: Acute Category: Medical Code(s): M86.9 - Osteomyelitis, unspecified (2) Ulcer of left foot due to type 2 diabetes mellitus Current visit: Yes Status: Acute Category: Medical Code(s): E11.621 - Type 2 diabetes mellitus with foot ulcer; L97.529 - Non-pressure chronic ulcer of other part of left foot with unspecified severity (3) Status post amputation of toe of left foot Current visit: Yes Status: Acute Category: Medical Code(s): Z89.422 - Acquired absence of other left toe(s) (4) Peripheral vascular disease Current visit: No Status: Chronic Category: Medical Code(s): I73.9 - Peripheral vascular disease, unspecified (5) Small vessel arterial disease due to type 2 diabetes mellitus Current visit: No Status: Chronic Category: Medical Code(s): E11.51 - Type 2 diabetes mellitus with diabetic peripheral angiopathy without gangrene (6) CAD (coronary artery disease) Current visit: No Status: Chronic Qualifiers: Category: Medical Code(s): I25.10 - Atherosclerotic heart disease of [place] c oronary artery without angina pectoris (7) Cardiomyopathy Current visit: No Status: Chronic Qualifiers: Category: Medical Code(s): I42.9 - Cardiomyopathy, unspecified (8) Chronic kidney disease (CKD) Current visit: No Status: Chronic Qualifiers: Category: Medical Code(s): N18.9 - Chronic kidney disease, unspecified (9) HHD (hypertensive heart disease) Current visit: No Status: Chronic Qualifiers: Category: Medical Code(s): I11.9 - Hypertensive heart disease without heart failure (10) HLD (hyperlipidemia) Current visit: No Status: Chronic Qualifiers: Category: Medical Code(s): E78.5 - Hyperlipidemia, unspecified (11) HTN (hypertension) Current visit: No Status: Chronic Category: Medical Code(s): I10 - Essential (primary) hypertension (12) Type 2 diabetes mellitus Current visit: No Status: Chronic Category: Medical Code(s): E11.9 - Type 2 diabetes mellitus without complications - Assessment and plan all Dx Assessment and Plan for all problems:: Saw patient, agree with above note.
--- NOTE | 2018-11-16 09:18 | Progress Note ---
Subjective Date: 11/16/18 Time: 08:45 Principal diagnosis: Left foot infection, OM, gangrene Interval history: Patient is resting comfortably at the bedside. He reports pain /10. Patient denies nausea/vomiting, fever/chills, shortness of breath and chest pain. PN: Obj Ex Vital signs: Temp Pulse Resp BP Pulse Ox 98.1 F 83 18 148/87 H 98 11/16/18 08:00 11/16/18 08:00 11/16/18 08:00 11/16/18 08:00 11/16/18 08:00 Narrative: NAD - Constitutional no acute distress - Routine HEENT Exam Head: Present: normocephalic Eye: Present: PERRL ENT: Present: mucous membranes moist - Routine Neck Exam Present: supple - Routine Respiratory Exam Present: accessory muscle use - Routine Cardiovascular Exam Present: RRR - Routine Abdominal Exam Present: soft - Routine Rectal Exam Patient deferred: visual exam - Detailed Lower Extremity Exam Foot/Toes: Left amputation (partial 1-2nd ray amp) Top foot image: 1 - Left 1-2nd partial ray amputation. Sutures and skin david intact. ZELDA drain intact. Decreased edema and erythema. No ascending cellulitis. No purulence. Progress Note: A&P (1) Foot osteomyelitis, left Status: Acute Current Visit: Yes (2) Ulcer of left foot due to type 2 diabetes mellitus Status: Acute Current Visit: Yes (3) Status post amputation of toe of left foot Status: Acute Current Visit: Yes (4) Peripheral vascular disease Status: Chronic Current Visit: No (5) Small vessel arterial disease due to type 2 diabetes mellitus Status: Chronic Current Visit: No (6) CAD (coronary artery disease) Status: Chronic Current Visit: No (7) Cardiomyopathy Status: Chronic Current Visit: No (8) Chronic kidney disease (CKD) Status: Chronic Current Visit: No (9) HHD (hypertensive heart disease) Status: Chronic Current Visit: No (10) HLD (hyperlipidemia) Status: Chronic Current Visit: No (11) HTN (hypertension) Status: Chronic Current Visit: No (12) Type 2 diabetes mellitus Status: Chronic Current Visit: No Assessment and Plan for All Diagnoses:: S/p left foot incision and drainage, 1-2nd partial ray (toe, met) amputation POD #1, sx: 11/15/18 Discharge/Plan: Maintain dressing clean dry and intact to the left lower extremity Nonweightbearing to LLE: walker, short fracture boot Elevate on 2 pillows ZELDA drain management PICC, IV daptomycin every 48 hours and oral clindamycin Plan for twice weekly dressing changes, one at my office. Other plan with infusion or HHC on /Monday. Dressing change: clean area skin david, sutures with betadine. Apply betadine soaked 4x4, followed by dry 4x4, kerlix, secure with Leonid. Plan to change dressing and pull ZELDA drain outpatient in my office 11/19/18
--- NOTE | 2018-11-16 13:11 | Discharge Summary ---
General - General Admission date:: 11/15/18 Discharge date: 11/16/18 HPI HPI: Mr. Madden is a 52yo male who was seen in the office of [facility] on 11/01/2018 for a wound on his left foot. He had stepped on a nail approximately 2 months prior and the wound had worsened since then. He had been putting Neosporin on the area but there was some dirt in the wound and he had some drainage. Dr. Davis saw the patient and put him on cefuroxime and did a wound culture. His wound culture came back positive for strep faecalis which was sensitive to the cefuroxime. This was continued. He was referred to wound care. In between the time he saw Dr. Davis and saw the security specialist, he hit his big toe and sustained a wound to it as well. He was referred to Dr. Granado. She tried to treat the wounds outpatient. The patient failed outpatient therapy and when he returned to her office his toe was black. She therefore felt he would need amputation of the first and second toes as well as an I&D of the foot. Patient was taken to surgery today and will be admitted overnight for observation, antibiotics, and wound care. Hospital Course Hospital Course: The patient's CXR showed nothing acute. He then underwent left foot incision and drainage with left first partial ray amputation and left second partial ray amputation by Dr. Granado. He was started on both daptomycin IV and clindamycin p.o. He was kept overnight for monitoring after his surgery. He had a PICC line placed for continued IV antibiotics. He did well overnight but did have some pain in his foot. Dr. Crowder did see the patient in follow-up and wanted him to maintain a clean and dry dressing to the left lower extremity. He needs to be nonweightbearing to the LLE and is to elevate his leg on 2 pillows. He was stable to be discharged home on IV daptomycin every 48 hours via the PICC line and oral clindamycin which he already has at home. He will need twice weekly dressing changes. Dr. Granado's plan is to change his dressing and pull his ZELDA drain in her office on 11/19/2018. Objective Vital signs: Temp Pulse Resp BP Pulse Ox 97.7 F 82 17 160/82 H 98 11/16/18 11:33 11/16/18 11:33 11/16/18 11:33 11/16/18 11:33 11/16/18 11:33 Narrative: - Constitutional no acute distress - *Routine HEENT Exam Head: Present: normocephalic Eye: Present: EOMI, PERRL ENT: Present: mucous membranes moist - *Routine Neck Exam Present: supple. Absent: lymphadenopathy - *Routine Respiratory Exam Present: CTA bilaterally - *Routine Cardiovascular Exam Present: RRR - *Routine Abdominal Exam Present: soft, normoactive bowel sounds. Absent: tenderness - *Routine Extremities Exam Absent: cyanosis, clubbing, edema - *Routine Skin Exam Present: warm. Absent: rash Comments: left foot with dressing and drain in place - *Routine Neurological Exam Present: alert, oriented X3 Results Labs on day of discharge: Labs from last 24 hours 11/16/18 11/16/18 11/16/18 11:03 05:38 05:25 WBC RBC Hgb Hct MCV MCH MCHC RDW Plt Count MPV Neut % (Auto) Lymph % (Auto) [place] % (Auto) Eos % (Auto) Baso % (Auto) Neut # (Auto) Lymph # (Auto) [place] # (Auto) Eos # (Auto) Baso # (Auto) ESR Sodium 137 Potassium 5.0 Chloride 105 Carbon Dioxide 22 Anion Gap 15.0 BUN 77 H Creatinine 4.32 H Estimated Creat Clear 37 Estimated GFR 14 L* Est GFR ( Amer) 17 L* Glucose 172 H D POC Glucose 249 H 177 H Calcium 8.2 L Total Bilirubin 0.2 AST 10 L ALT 16 Alkaline Phosphatase 126 H C-Reactive Protein 1.4 H Total Protein 6.0 L Albumin 2.3 L Globulin 3.7 H Albumin/Globulin Ratio 0.6 L 11/16/18 11/16/18 11/15/18 05:25 05:25 20:47 WBC 14.6 H RBC 3.36 L Hgb 9.8 L Hct 30.9 L MCV 92.0 MCH 29.1 MCHC 31.6 L RDW 13.0 Plt Count 322 MPV 7.5 Neut % (Auto) 75.9 Lymph % (Auto) 17.8 [place] % (Auto) 4.1 Eos % (Auto) 1.8 Baso % (Auto) 0.3 Neut # (Auto) 11.1 H Lymph # (Auto) 2.6 [place] # (Auto) 0.6 Eos # (Auto) 0.3 Baso # (Auto) 0.1 ESR 106 H Sodium Potassium Chloride Carbon Dioxide Anion Gap BUN Creatinine Estimated Creat Clear Estimated GFR Est GFR ( Amer) Glucose POC Glucose 134 H Calcium Total Bilirubin AST ALT Alkaline Phosphatase C-Reactive Protein Total Protein Albumin Globulin Albumin/Globulin Ratio 11/15/18 16:32 WBC RBC Hgb Hct MCV MCH MCHC RDW Plt Count MPV Neut % (Auto) Lymph % (Auto) [place] % (Auto) Eos % (Auto) Baso % (Auto) Neut # (Auto) Lymph # (Auto) [place] # (Auto) Eos # (Auto) Baso # (Auto) ESR Sodium Potassium Chloride Carbon Dioxide Anion Gap BUN Creatinine Estimated Creat Clear Estimated GFR Est GFR ( Amer) Glucose POC Glucose 190 H Calcium Total Bilirubin AST ALT Alkaline Phosphatase C-Reactive Protein Total Protein Albumin Globulin Albumin/Globulin Ratio Preliminary micro results at discharge 11/15/18 12:40 Wound Culture - Preliminary Toe,Left Great Gram Negative Rods DS: Diagnosis - Discharge Diagnosis (1) Foot osteomyelitis, left Status: Acute (2) Ulcer of left foot due to type 2 diabetes mellitus Status: Acute (3) Status post amputation of toe of left foot Status: Acute (4) Peripheral vascular disease Status: Chronic (5) Small vessel arterial disease due to type 2 diabetes mellitus Status: Chronic (6) CAD (coronary artery disease) Status: Chronic (7) Cardiomyopathy Status: Chronic (8) Chronic kidney disease (CKD) Status: Chronic (9) HHD (hypertensive heart disease) Status: Chronic (10) HLD (hyperlipidemia) Status: Chronic (11) HTN (hypertension) Status: Chronic (12) Type 2 diabetes mellitus Status: Chronic Discharge Plan - Patient Discharge Instructions ACTIVITY: Continue current activity DIET: continue same diet Additional Instructions: PICC line care and Daptomycin to be given every 48 hours at [facility], dressing changes and activity order per Dr. Granado. Patient Instructions: How to Care for a Surgical Wound, High Blood Pressure, DI for Filib[place] Drains, How to Use and Care for Your [place] Drain, DI for Hyperglycemia -- Adult, DI for Surgical Site Infection - Follow up Plan Follow up with: Chantel Granado DPM [Staff Physician] - 11/19/18 9:20 am Disposition: Home, Self-[facility] Medications: Home Medications Medication Instructions Recorded Confirmed Type furosemide 40 mg tablet 40 mg PO DAILY 05/23/17 11/15/18 History metolazone 5 mg tablet 5 mg PO BID tab 05/23/17 11/15/18 History Ascorbic Acid [Vitamin C 500mg 500 mg PO DAILY 06/20/17 11/15/18 History tablet] Cyanocobalamin (Vitamin B-12) 1,000 mcg PO DAILY 06/20/17 11/15/18 History [Vitamin B-12 1000mcg Tablet] Fenofibrate [Tricor 54mg tablet] 54 mg PO DAILY 06/20/17 11/15/18 History Gabapentin [Neurontin 600mg 600 mg PO BID 06/20/17 11/15/18 History tablet] Insulin Regular, Human [Humulin R] 90 unit SQ HS 06/20/17 11/15/18 History clindamycin HCl 300 mg capsule 300 mg PO TID 14 Days #42 cap 11/07/18 11/15/18 Rx Aspirin [Aspirin 81mg EC Tab] 81 mg PO DAILY 11/15/18 11/15/18 History Dulaglutide [Trulicity] 0 unit SQ WEEKLY 11/15/18 11/15/18 History Hydralazine HCl [Hydralazine HCl 50 mg PO DAILY 11/15/18 11/15/18 History 25mg Tablet] Insulin Regular, Human [Humulin R 50 unit SQ DAILY 11/15/18 11/15/18 History Insulin 100 Units/mL 10mL Vial] atorvastatin 20 mg tablet 20 mg PO DAILY tab 11/15/18 11/15/18 History carvedilol 12.5 mg tablet 12.5 mg PO BID tab 11/15/18 11/15/18 History cholecalciferol (vitamin D3) 2,000 2,000 units PO DAILY #90 cap 11/15/18 11/15/18 History unit capsule Hydrocodone/Acetaminophen [Lortab 1 tab PO Q4HP PRN #18 tab 11/16/18 Rx 7.5/325mg tablet] Prescriptions/Medication Reconciliation: New DAPTOmycin [Cubicin 500mg vial] 500 mg IV Q48H vial Hydrocodone/Acetaminophen [Lortab 7.5/325mg tablet] 1 tab PO Q4HP PRN #18 tab PRN Reason: Moderate To Severe Pain Continued furosemide 40 mg tablet 40 mg PO DAILY metolazone 5 mg tablet 5 mg PO BID tab carvedilol 12.5 mg tablet 12.5 mg PO BID tab atorvastatin 20 mg tablet 20 mg PO DAILY tab cholecalciferol (vitamin D3) 2,000 unit capsule 2,000 units PO DAILY #90 cap clindamycin HCl 300 mg capsule 300 mg PO TID 14 Days #42 cap Gabapentin [Neurontin 600mg tablet] 600 mg PO BID Insulin Regular, Human [Humulin R] 90 unit SQ HS Ascorbic Acid [Vitamin C 500mg tablet] 500 mg PO DAILY Cyanocobalamin (Vitamin B-12) [Vitamin B-12 1000mcg Tablet] 1,000 mcg PO DAILY Hydralazine HCl [Hydralazine HCl 25mg Tablet] 50 mg PO DAILY Aspirin [Aspirin 81mg EC Tab] 81 mg PO DAILY Insulin Regular, Human [Humulin R Insulin 100 Units/mL 10mL Vial] 50 unit SQ DAILY Dulaglutide [Trulicity] 0 unit SQ WEEKLY Fenofibrate [Tricor 54mg tablet] 54 mg PO DAILY
== END 2018-11-16 14:45 | disposition home or self-care (01) ==
LOC: OR 09:43 → 2ND 09:43
PROVIDERS: ADMIT Podiatrist; ATTEND Podiatrist
DX: E78.5 Hyperlipidemia, unspecified; I25.2 Old myocardial infarction; Z79.4 Long term (current) use of insulin; E11.52 Type 2 diabetes mellitus with diabetic peripheral angiopathy with gangrene; Z79.899 Other long term (current) drug therapy; I25.10 Atherosclerotic heart disease of native coronary artery without angina pectoris; E89.0 Postprocedural hypothyroidism; I42.9 Cardiomyopathy, unspecified; Z89.022 Acquired absence of left finger(s); Z90.79 Acquired absence of other genital organ(s); L97.529 Non-pressure chronic ulcer of other part of left foot with unspecified severity; Z82.49 Family history of ischemic heart disease and other diseases of the circulatory system; E11.22 Type 2 diabetes mellitus with diabetic chronic kidney disease; E11.69 Type 2 diabetes mellitus with other specified complication; E11.621 Type 2 diabetes mellitus with foot ulcer; Z83.3 Family history of diabetes mellitus; Z95.5 Presence of coronary angioplasty implant and graft; M86.172 Other acute osteomyelitis, left ankle and foot; I12.9 Hypertensive chronic kidney disease with stage 1 through stage 4 chronic kidney disease, or unspecified chronic kidney disease; Z86.718 Personal history of other venous thrombosis and embolism; Z83.438 Family history of other disorder of lipoprotein metabolism and other lipidemia; N18.4 Chronic kidney disease, stage 4 (severe); Z79.82 Long term (current) use of aspirin; I96 Gangrene, not elsewhere classified
CPT/HCPCS: 36415; 36569; 71010; 71045; 73630; 80048; 80053; 82962; 85025; 85651; 86140; 87070; 87075; 87077; 87186; 87205; 88305; 88311; 93005; C1751; G0378; J0878; S0077

== ENCOUNTER → 2018-11-17 11:00 | Outpatient (CLI) | payer MEDICARE, SELFPAY ==
[2018-11-17 11:32] VITALS: BP 122/70; PULSE 91; RESP 18; TEMP 37; O2SAT 96
[2018-11-17 11:53] VITALS: BP 118/68; PULSE 89; RESP 18; TEMP 37; O2SAT 96
== END ==
PROVIDERS: PCP Family Medicine; Visit Provider Family Medicine
DX: M86.172 Other acute osteomyelitis, left ankle and foot (principal); E11.621 Type 2 diabetes mellitus with foot ulcer; Z89.422 Acquired absence of other left toe(s); Z79.4 Long term (current) use of insulin
CPT/HCPCS: 96365; J0878

== ENCOUNTER 2018-11-19 10:29 | Outpatient (CLI) | payer MEDICARE, SELFPAY ==
[2018-11-19 10:35] VITALS: BP 112/70; PULSE 88; RESP 16; O2SAT 94
[2018-11-19 11:03] LABS: Estimated Glomerular Filt Rate 12 ml/min (>60); GFR (African American) 15 ML/MIN (>60)
[2018-11-19 11:06] LABS: Creatinine,Serum 4.97 mg/dL (0.70-1.30)
[2018-11-19 12:21] VITALS: BP 102/69; PULSE 84; RESP 16; TEMP 36.6; O2SAT 98
== END 2018-11-19 12:21 | disposition home or self-care (01) ==
LOC: INF 10:31
PROVIDERS: PCP Family Medicine; Visit Provider Podiatrist
DX: M86.9 Osteomyelitis, unspecified (principal); E11.621 Type 2 diabetes mellitus with foot ulcer; Z89.422 Acquired absence of other left toe(s)
CPT/HCPCS: 82565; 96365; 96374; 96375; J0878

== ENCOUNTER 2018-11-21 08:59 | Outpatient (CLI) | payer MEDICARE, SELFPAY ==
[2018-11-21] VITALS (7 sets, daily range): BP systolic 120–130; BP diastolic 72–80; PULSE 77–81; RESP 18–20; TEMP 36.6; O2SAT 97–98; BMI 38.9
[2018-11-21 12:21] LABS: Basophils % 0.3 % (0.1-2.0); Eosinophils # 0.3 K/mm3 (0.0-0.4); Eosinophils % 2.1 % (0.1-12.0); Hematocrit 29.1 % (42.0-52.0); Hemoglobin 9.1 g/dL (14.1-18.0); Lymphocytes # 1.6 K/mm3 (0.7-4.5); Lymphocytes % 11.7 % (10-50); Mean Corpuscular HGB Conc 31.4 g/dL (31.8-35.4); Mean Corpuscular Hemoglobin 29.1 pg (27.0-31.2); Mean Corpuscular Volume 92.6 fl (80-94); Mean Platelet Volume 7.8 fl (7.4-10.4); Monocytes # 0.9 K/mm3 (0.1-1.0); Neutrophils # 11.2 K/mm3 (1.8-7.8); Neutrophils % 79.9 % (37.0-80.0); Platelet Count 345 K/mm3 (142-424); Red Blood Count 3.15 M/mm3 (4.60-6.20); Red Cell Distribution Width 13.1 % (11.5-17.5); White Blood Count 14.1 K/mm3 (4.8-10.8)
[2018-11-21 12:33] LABS: Albumin Level 2.1 gm/dL (3.4-5.0); Anion Gap 14.2 mEq/L (5-15); Calcium 8.6 mg/dL (8.5-10.1); Carbon Dioxide 24 mmol/L (21.0-32.0); Chloride 102 mmol/L (98-107); Creatinine Clearance Estimated 30 mL/min (50-200); Estimated Glomerular Filt Rate 11 ml/min (>60); GFR (African American) 14 ML/MIN (>60); Glucose 209 mg/dL (74-106); Potassium 5.2 mmoL/L (3.5-5.1); Sodium 135 mmol/L (136-145)
[2018-11-21 12:35] LABS: Blood Urea Nitrogen 83 mg/dL (7-18); Creatinine,Serum 5.31 mg/dL (0.70-1.30)
== END 2018-11-21 12:10 | disposition home or self-care (01) ==
LOC: INF 08:59
PROVIDERS: Internal Medicine Nephrology; Visit Provider Podiatrist
DX: M86.9 Osteomyelitis, unspecified (principal); E11.621 Type 2 diabetes mellitus with foot ulcer; Z89.422 Acquired absence of other left toe(s); I73.9 Peripheral vascular disease, unspecified; E11.51 Type 2 diabetes mellitus with diabetic peripheral angiopathy without gangrene; N18.4 Chronic kidney disease, stage 4 (severe); Z79.4 Long term (current) use of insulin
CPT/HCPCS: 80069; 85025; 96365; 96366; 96367; J0878; J1956

== ENCOUNTER 2018-11-22 11:11 | Outpatient (CLI) | payer MEDICARE, SELFPAY ==
[2018-11-22 11:26] VITALS: BMI 39.1
[2018-11-22 11:43] VITALS: BP 131/70; PULSE 78; RESP 19; O2SAT 96
[2018-11-22 12:20] LABS: Anion Gap 15.5 mEq/L (5-15); Calcium 8.4 mg/dL (8.5-10.1); Carbon Dioxide 23 mmol/L (21.0-32.0); Chloride 103 mmol/L (98-107); Creatinine Clearance Estimated 32 mL/min (50-200); Estimated Glomerular Filt Rate 12 ml/min (>60); GFR (African American) 14 ML/MIN (>60); Glucose 236 mg/dL (74-106); Potassium 5.5 mmoL/L (3.5-5.1); Sodium 136 mmol/L (136-145)
[2018-11-22 12:24] LABS: Blood Urea Nitrogen 86 mg/dL (7-18); Creatinine,Serum 5.09 mg/dL (0.70-1.30)
--- NOTE | 2018-11-22 13:38 | PC.NURSE ---
Dressing to left foot changed. Old dressing removed, wound cleaned with [id number]
--- NOTE | 2018-11-22 13:39 | PC.NURSE ---
Old dressing removed from left foot; Wound cleaned with betadine, incision flushed with sterile saline and patted dry with 4x4's. Betadine reapplied to skin, 1/2 in betadine soaked packing packed into wound and covered with betadine soaked 4x4's and kerlix. Pt tolerated dressing change well.
== END 2018-11-22 12:20 | disposition home or self-care (01) ==
LOC: INF 11:12
PROVIDERS: PCP Family Medicine; Visit Provider Podiatrist
DX: M86.9 Osteomyelitis, unspecified (principal); E11.621 Type 2 diabetes mellitus with foot ulcer; Z89.422 Acquired absence of other left toe(s); I73.9 Peripheral vascular disease, unspecified; E11.51 Type 2 diabetes mellitus with diabetic peripheral angiopathy without gangrene; Z79.4 Long term (current) use of insulin
CPT/HCPCS: 80048; 96365; G0463

== ENCOUNTER 2018-11-23 11:00 | Outpatient (CLI) | payer MEDICARE, SELFPAY ==
[2018-11-23 11:10] VITALS: BP 162/85; PULSE 79; RESP 16; TEMP 36.3; O2SAT 97
--- NOTE | 2018-11-23 12:09 | PC.NURSE ---
Dressing removed and replaced as ordered with betadine soaked 1/2 inch gauze packing and betadine soaked 4x4, kerlix, and PAYTON wrap. Pt reports no sensation in his foot and no other symptoms at this time.
[2018-11-23 13:04] VITALS: BP 142/79; PULSE 74; RESP 16; TEMP 36.4; O2SAT 97
== END 2018-11-23 13:28 | disposition home or self-care (01) ==
LOC: INF 11:04
PROVIDERS: Visit Provider Podiatrist
DX: M86.9 Osteomyelitis, unspecified (principal); E11.621 Type 2 diabetes mellitus with foot ulcer; Z89.422 Acquired absence of other left toe(s); I73.9 Peripheral vascular disease, unspecified; E11.51 Type 2 diabetes mellitus with diabetic peripheral angiopathy without gangrene; Z79.4 Long term (current) use of insulin
CPT/HCPCS: 96365; 96367; G0463; J0878; J1956

== ENCOUNTER 2018-11-24 10:47 | Outpatient (CLI) | payer MEDICARE, SELFPAY ==
[2018-11-24 11:00] VITALS: BP 130/67; PULSE 86; RESP 18; O2SAT 96
[2018-11-24 12:36] VITALS: BP 138/79; PULSE 78; RESP 18; O2SAT 98
[2018-11-24 13:10] LABS: Anion Gap 14.3 mEq/L (5-15); Blood Urea Nitrogen 74 mg/dL (7-18); Calcium 8.9 mg/dL (8.5-10.1); Carbon Dioxide 25 mmol/L (21.0-32.0); Chloride 104 mmol/L (98-107); Estimated Glomerular Filt Rate 14 ml/min (>60); GFR (African American) 17 ML/MIN (>60); Glucose 149 mg/dL (74-106); Potassium 5.3 mmoL/L (3.5-5.1); Sodium 138 mmol/L (136-145)
[2018-11-24 13:11] LABS: Creatinine,Serum 4.52 mg/dL (0.70-1.30)
== END 2018-11-24 12:37 | disposition home or self-care (01) ==
LOC: INF 10:48
PROVIDERS: PCP Family Medicine; Visit Provider Podiatrist
DX: M86.9 Osteomyelitis, unspecified (principal); E11.621 Type 2 diabetes mellitus with foot ulcer; Z89.422 Acquired absence of other left toe(s); I73.9 Peripheral vascular disease, unspecified; E11.51 Type 2 diabetes mellitus with diabetic peripheral angiopathy without gangrene; Z79.4 Long term (current) use of insulin
CPT/HCPCS: 80048; 96365; G0463

== ENCOUNTER 2018-11-25 10:35 | Outpatient (CLI) | payer MEDICARE, SELFPAY ==
[2018-11-25 11:39] VITALS: BP 135/70; PULSE 80; O2SAT 97
[2018-11-25 12:45] VITALS: BP 128/70; PULSE 76; O2SAT 96
== END 2018-11-25 12:45 | disposition home or self-care (01) ==
LOC: INF 10:36
PROVIDERS: PCP Family Medicine; Visit Provider Podiatrist
DX: M86.9 Osteomyelitis, unspecified (principal); E11.621 Type 2 diabetes mellitus with foot ulcer; Z89.422 Acquired absence of other left toe(s); I73.9 Peripheral vascular disease, unspecified; E11.51 Type 2 diabetes mellitus with diabetic peripheral angiopathy without gangrene; Z79.4 Long term (current) use of insulin
CPT/HCPCS: 96365; 96367; G0463; J0878; J1956

== ENCOUNTER 2018-11-26 10:34 | Outpatient (CLI) | payer MEDICARE, SELFPAY ==
[2018-11-26 10:46] VITALS: BMI 34.9
[2018-11-26 11:31] VITALS: BP 132/72; PULSE 72; RESP 17; TEMP 36.6; O2SAT 94
[2018-11-26 11:33] LABS: Creatinine Clearance Estimated 30 mL/min (50-200); Estimated Glomerular Filt Rate 13 ml/min (>60); GFR (African American) 16 ML/MIN (>60)
[2018-11-26 11:50] LABS: Creatinine,Serum 4.77 mg/dL (0.70-1.30)
== END 2018-11-26 12:05 | disposition home or self-care (01) ==
LOC: INF 10:34
PROVIDERS: Visit Provider Podiatrist
DX: M86.9 Osteomyelitis, unspecified (principal); E11.621 Type 2 diabetes mellitus with foot ulcer; Z89.422 Acquired absence of other left toe(s); I73.9 Peripheral vascular disease, unspecified; E11.51 Type 2 diabetes mellitus with diabetic peripheral angiopathy without gangrene; Z79.4 Long term (current) use of insulin
CPT/HCPCS: 82565; 96365; G0463

== ENCOUNTER → 2018-11-26 15:35 | Outpatient (POV) | payer MEDICARE, SELFPAY | PROVIDERS: Visit Provider Internal Medicine Nephrology | DX: Z00.00 Encounter for general adult medical examination without abnormal findings (principal) ==

== ENCOUNTER → 2018-11-27 16:58 | Outpatient (CLI) | payer MEDICARE, SELFPAY | PROVIDERS: Visit Provider Podiatrist | DX: M86.372 Chronic multifocal osteomyelitis, left ankle and foot (principal) | CPT/HCPCS: 87070; 87077; 87186; 87205 ==

== ENCOUNTER → 2018-12-31 15:15 | Outpatient (POV) | payer MEDICARE, SELFPAY | PROVIDERS: Visit Provider Internal Medicine Nephrology | DX: Z00.00 Encounter for general adult medical examination without abnormal findings (principal) ==

== ENCOUNTER → 2019-02-20 11:16 | Outpatient (CLI) | payer MEDICARE, SELFPAY ==
[2019-02-20 11:36] LABS: Basophils # 0.1 K/mm3 (0-0.2); Basophils % 0.6 % (0.1-2.0); Eosinophils # 0.3 K/mm3 (0.0-0.4); Hematocrit 34.9 % (42.0-52.0); Hemoglobin 10.7 g/dL (14.1-18.0); Lymphocytes # 1.5 K/mm3 (0.7-4.5); Lymphocytes % 16.5 % (10-50); Mean Corpuscular HGB Conc 30.7 g/dL (31.8-35.4); Mean Corpuscular Hemoglobin 28.3 pg (27.0-31.2); Mean Corpuscular Volume 92.2 fl (80-94); Monocytes # 0.5 K/mm3 (0.1-1.0); Monocytes % 5.2 % (1.7-9.3); Neutrophils # 6.8 K/mm3 (1.8-7.8); Neutrophils % 74.8 % (37.0-80.0); Platelet Count 219 K/mm3 (142-424); Red Blood Count 3.78 M/mm3 (4.60-6.20); Red Cell Distribution Width 14.7 % (11.5-17.5); White Blood Count 9.2 K/mm3 (4.8-10.8)
[2019-02-20 13:39] LABS: Albumin Level 2.8 gm/dL (3.4-5.0); Anion Gap 14.3 mEq/L (5-15); Blood Urea Nitrogen 63 mg/dL (7-18); Calcium 7.7 mg/dL (8.5-10.1); Carbon Dioxide 25 mmol/L (21.0-32.0); Chloride 106 mmol/L (98-107); Estimated Glomerular Filt Rate 17 ml/min (>60); GFR (African American) 20 ML/MIN (>60); Glucose 246 mg/dL (74-106); Potassium 5.3 mmoL/L (3.5-5.1); Sodium 140 mmol/L (136-145)
[2019-02-20 15:51] LABS: Creatinine,Serum 3.83 mg/dL (0.70-1.30)
== END ==
PROVIDERS: Visit Provider Internal Medicine Nephrology
DX: N18.4 Chronic kidney disease, stage 4 (severe) (principal)
CPT/HCPCS: 36415; 80069; 85025

== ENCOUNTER → 2019-02-21 15:36 | Outpatient (POV) | payer MEDICARE, SELFPAY | PROVIDERS: Visit Provider Internal Medicine Nephrology | DX: Z00.00 Encounter for general adult medical examination without abnormal findings (principal) ==

== ENCOUNTER → 2019-04-23 08:26 | Outpatient (CLI) | payer MEDICARE, SELFPAY ==
[2019-04-23 08:43] LABS: Basophils # 0.1 K/mm3 (0-0.2); Basophils % 0.4 % (0.1-2.0); Eosinophils # 0.5 K/mm3 (0.0-0.4); Hematocrit 33.4 % (42.0-52.0); Hemoglobin 10.4 g/dL (14.1-18.0); Lymphocytes # 1.8 K/mm3 (0.7-4.5); Lymphocytes % 12.4 % (10-50); Mean Corpuscular HGB Conc 31.1 g/dL (31.8-35.4); Mean Corpuscular Volume 93.3 fl (80-94); Mean Platelet Volume 8.2 fl (7.4-10.4); Monocytes # 0.9 K/mm3 (0.1-1.0); Neutrophils # 11.6 K/mm3 (1.8-7.8); Neutrophils % 78.2 % (37.0-80.0); Platelet Count 268 K/mm3 (142-424); Red Blood Count 3.58 M/mm3 (4.60-6.20); Red Cell Distribution Width 13.5 % (11.5-17.5); White Blood Count 14.8 K/mm3 (4.8-10.8)
[2019-04-23 11:06] LABS: Albumin Level 2.8 gm/dL (3.4-5.0); Anion Gap 17.7 mEq/L (5-15); Calcium 8.5 mg/dL (8.5-10.1); Carbon Dioxide 22 mmol/L (21.0-32.0); Chloride 108 mmol/L (98-107); Estimated Glomerular Filt Rate 12 ml/min (>60); GFR (African American) 14 ML/MIN (>60); Glucose 108 mg/dL (74-106); Phosphorous 5.8 mg/dL (2.4-4.9); Potassium 5.7 mmoL/L (3.5-5.1); Sodium 142 mmol/L (136-145)
[2019-04-23 14:39] LABS: Blood Urea Nitrogen 92 mg/dL (7-18)
[2019-04-25 09:17] LABS: Creatinine,Serum 5.17 mg/dL (0.70-1.30)
== END ==
PROVIDERS: Visit Provider Internal Medicine Nephrology
DX: N18.4 Chronic kidney disease, stage 4 (severe) (principal)
CPT/HCPCS: 36415; 80069; 85025

== ENCOUNTER → 2019-04-25 14:52 | Outpatient (POV) | payer MEDICARE, SELFPAY | PROVIDERS: Visit Provider Dentist | DX: Z00.00 Encounter for general adult medical examination without abnormal findings (principal) ==

== ENCOUNTER → 2019-05-20 13:10 | Outpatient (CLI) | payer MEDICARE, SELFPAY ==
[2019-05-20 14:14] LABS: Basophils # 0.1 K/mm3 (0-0.2); Basophils % 0.5 % (0.1-2.0); Eosinophils # 0.3 K/mm3 (0.0-0.4); Eosinophils % 3.7 % (0.1-12.0); Hemoglobin 9.6 g/dL (14.1-18.0); Lymphocytes # 1.4 K/mm3 (0.7-4.5); Lymphocytes % 16.3 % (10-50); Mean Corpuscular HGB Conc 29.9 g/dL (31.8-35.4); Mean Corpuscular Volume 93.6 fl (80-94); Monocytes # 0.6 K/mm3 (0.1-1.0); Monocytes % 6.4 % (1.7-9.3); Neutrophils # 6.2 K/mm3 (1.8-7.8); Neutrophils % 72.9 % (37.0-80.0); Platelet Count 252 K/mm3 (142-424); Red Blood Count 3.42 M/mm3 (4.60-6.20); Red Cell Distribution Width 14.4 % (11.5-17.5); White Blood Count 8.5 K/mm3 (4.8-10.8)
[2019-05-20 16:26] LABS: Albumin Level 2.8 gm/dL (3.4-5.0); Anion Gap 17.3 mEq/L (5-15); Blood Urea Nitrogen 57 mg/dL (7-18); Calcium 8.4 mg/dL (8.5-10.1); Carbon Dioxide 22 mmol/L (21.0-32.0); Chloride 108 mmol/L (98-107); Estimated Glomerular Filt Rate 14 ml/min (>60); Ferritin 267 ng/mL (8-388); GFR (African American) 18 ML/MIN (>60); Glucose 250 mg/dL (74-106); Phosphorous 4.7 mg/dL (2.4-4.9); Sodium 141 mmol/L (136-145)
[2019-05-20 17:03] LABS: Potassium 6.3 mmoL/L (3.5-5.1)
--- NOTE | 2019-05-20 17:27 | PC.NURSE ---
1709 - SPOKE WITH DR. HENDRICKSON AND NOTIFIED HIM OF CRITICAL K+ 6.3 AND NOTIFICATION RESULT OF CR: 4.30. STATED HE WOULD FOLLOW UP WITH PATIENT.
[2019-05-21 13:58] LABS: Iron 70 ug/dL (38-169); UIBC 204 ug/dL (111-343)
[2019-05-22 01:32] LABS: Calcium, Ionized 5.1 mg/dL (4.5-5.6); Iron Saturation 26 % (15-55); Parathyroid Hormone Intact 96 pg/mL (15-65); Vitamin D 25 Hydroxy 23.4 ng/mL (30.0-100.0)
== END ==
PROVIDERS: Visit Provider Internal Medicine Nephrology
DX: N18.4 Chronic kidney disease, stage 4 (severe) (principal)
CPT/HCPCS: 36415; 80069; 82330; 82652; 82728; 83540; 83550; 83970; 85025

== ENCOUNTER → 2019-05-23 15:28 | Outpatient (POV) | payer MEDICARE, SELFPAY | PROVIDERS: Visit Provider Internal Medicine Nephrology | DX: Z00.00 Encounter for general adult medical examination without abnormal findings (principal) ==

== ENCOUNTER → 2019-05-31 11:47 | Outpatient (CLI) | payer MEDICARE, SELFPAY ==
[2019-05-31 12:56] LABS: Anion Gap 16.7 mEq/L (5-15); Blood Urea Nitrogen 73 mg/dL (7-18); Calcium 8.2 mg/dL (8.5-10.1); Carbon Dioxide 23 mmol/L (21.0-32.0); Chloride 106 mmol/L (98-107); Estimated Glomerular Filt Rate 12 ml/min (>60); GFR (African American) 14 ML/MIN (>60); Glucose 137 mg/dL (74-106); Potassium 5.7 mmoL/L (3.5-5.1); Sodium 140 mmol/L (136-145)
== END ==
PROVIDERS: Visit Provider Internal Medicine Nephrology
DX: E87.5 Hyperkalemia (principal)
CPT/HCPCS: 36415; 80048

== ENCOUNTER → 2019-07-22 11:29 | Outpatient (CLI) | payer MEDICARE, SELFPAY ==
[2019-07-22 12:09] LABS: Basophils % 0.5 % (0.1-2.0); Eosinophils # 0.2 K/mm3 (0.0-0.4); Eosinophils % 2.5 % (0.1-12.0); Hemoglobin 9.5 g/dL (14.1-18.0); Lymphocytes # 1.1 K/mm3 (0.7-4.5); Lymphocytes % 14.9 % (10-50); Mean Corpuscular HGB Conc 30.7 g/dL (31.8-35.4); Mean Corpuscular Hemoglobin 29.1 pg (27.0-31.2); Mean Corpuscular Volume 94.8 fl (80-94); Mean Platelet Volume 7.6 fl (7.4-10.4); Monocytes # 0.4 K/mm3 (0.1-1.0); Monocytes % 5.4 % (1.7-9.3); Neutrophils # 5.5 K/mm3 (1.8-7.8); Neutrophils % 76.8 % (37.0-80.0); Platelet Count 230 K/mm3 (142-424); Red Blood Count 3.27 M/mm3 (4.60-6.20); Red Cell Distribution Width 14.1 % (11.5-17.5); White Blood Count 7.2 K/mm3 (4.8-10.8)
[2019-07-22 12:23] LABS: Albumin Level 3.4 g/dl (3.5-5.0); Anion Gap 15.9 mEq/L (5-15); Blood Urea Nitrogen 55 mg/dl (9-20); Calcium 8.5 mg/dl (8.4-10.2); Carbon Dioxide 24 mmol/L (22.0-30.0); Chloride 108 mmol/L (98-107); Estimated Glomerular Filt Rate 11 ml/min (>60); GFR (African American) 13 ML/MIN (>60); Glucose 204 mg/dl (74-100); Phosphorous 5.4 mg/dl (2.5-4.5); Potassium 5.9 mmoL/L (3.5-5.1); Sodium 142 mmol/L (136-145)
== END ==
PROVIDERS: Visit Provider Internal Medicine Nephrology
DX: N18.4 Chronic kidney disease, stage 4 (severe) (principal)
CPT/HCPCS: 36415; 80069; 85025

== ENCOUNTER → 2019-07-25 15:18 | Outpatient (POV) | payer MEDICARE, SELFPAY | PROVIDERS: PCP Internal Medicine Nephrology; Visit Provider Internal Medicine Nephrology | DX: Z00.00 Encounter for general adult medical examination without abnormal findings (principal) ==

== ENCOUNTER → 2019-11-21 12:28 | Outpatient (POV) | payer MEDICARE, SELFPAY | PROVIDERS: Visit Provider Internal Medicine Nephrology | DX: Z00.00 Encounter for general adult medical examination without abnormal findings (principal) ==

== ENCOUNTER 2019-12-21 15:20 | Emergency (ER) | payer MEDICARE, SELFPAY ==
[2019-12-21 15:35] VITALS: BP 142/128; PULSE 78; RESP 20; TEMP 36.7; O2SAT 99; BMI 41.4
--- NOTE | 2019-12-21 15:50 | CT_ITS ---
PROCEDURE: CT HEAD/BRAIN WO CON Patient Age:53Y CLINICAL INDICATION: hallucinations; no history of psych COMPARISON: KID US [id number] from 02/22/2017 TECHNIQUE: No IV contrast. Standard axial images were obtained. All CT scans at the facility use one or more dose reduction, viz: automated exposure control, ma/kV adjustment per patient size (including targeted exams where dose is matched to indication, i.e. head), or iterative reconstruction technique. FINDINGS: No discrete acute intracranial findings.No intracranial hemorrhage. Suggestion subtle low-density in the white matter which could reflect underlying mild small vessel ischemic changes... Does the patient have risk factors vascular disease. Underlying vascular disease noting the diffuse calcification superficial small vessels/arteries anterior to the ear, best seen pre-auricular soft tissue region on axial images 7-18.. Question history diabetes or renal failure-clinical correlation required. Also note calcification a carotid siphons. Low normal density at the left occipital lobe more so than right. Equivocal observation could reflect small vessel disease involving periventricular deep white matter about the acceptable horn on left more so than right. I would suggesting checking for visual diaz. If new neurological findings the the present or visual symptoms symptoms/deficit follow-up MRI with contrast to the suggested in follow-up to further evaluate of this region. However in view the patient's evident vascular disease and suspect small vessel disease in this age patient, MR in follow-up of may be helpful for more sensitive the evaluation No hydrocephalus.The ventricles and basal cisterns appear clear and satisfactory. No mass or midline shift nor mass effect. No subdural or extra-axial fluid collection is evident. Posterior fossa unremarkable. .. Skull intact- .. . Mastoid air cells are well developed and clear.Nomastoid effusions. The notable cerumen external auditory canal bilateral. Middle ear clear. IAC's symmetric. Nosinus air-fluid level. Visualized portions of the paranasal sinuses satisfactory with only barely evident mucosal thickening at the inferior left maxillary sinus.. IMPRESSION: No definitive acute intracranial findings . Suggestion vague low density deep white matter suspect reflects small vessel ischemic gliotic changes. Patient perhaps slightly young for such but there does appear to be notable vascular disease which would correlate-specifically noting diffuse calcification of superficial small vessels pre-auricular region bilateral. . Low normal density deep white matter towards left occipital lobe, more so than right.. Is suspect reflecting subtle small vessel deep white-matter changes about the left occipital horn more than right. However would encourage thorough visual field evaluation, and if any visual field deficit follow-up MRI would be warranted . . Dictated by: Madan Phelps MD 12/21/2019 17:23 Electronically signed by Madan Phelps MD in [place] 12/21/2019 17:23
--- NOTE | 2019-12-21 15:53 | HMH.EDAMS ---
ED Disposition Clinical Impression: Acute kidney failure Qualifiers: Acute renal failure type: with other specified pathological lesion Qualified Code(s): N17.8 - Other acute kidney failure Disposition: Xfer Short-Term Hosp Condition on Discharge: Serious Instructions: DI for Altered Mental Status Referrals: Bello Davis MD [Primary Care Provider] - - Critical Care Critical Care Time: No Attestation: On 12/21/19, the high probability of a clinically significant, sudden or life threatening deterioration of the following system(s) required my full and direct attention, intervention and personal management. The time I documented below is in addition to time spent performing reported procedures but includes the following listed in this critical care notation. Medical Decision Making - Medical Records Medical records reviewed: Yes: I reviewed the patient's medical records. - Yaron Inquiry Pt receiving controlled substance: No Vital Signs: 12/21/19 15:35 12/21/19 16:55 12/21/19 17:31 Temperature 98.1 F Temperature Source Oral Pulse Rate [Radial] 78 75 72 Respiratory Rate 20 Blood Pressure [Right Arm] 142/128 H 147/64 H 166/71 H Blood Pressure Mean [Right Arm] 132 91 102 Blood Pressure Source [Right Arm] Automatic Cuff Automatic Cuff Automatic Cuff Blood Pressure Position [Right Arm] Sitting Sitting Sitting 02 Sat by Pulse Oximetry 99 94 L 96 Oxygen Delivery Method Room Air Room Air Room Air 12/21/19 18:33 Temperature Temperature Source Pulse Rate [Radial] 76 Respiratory Rate Blood Pressure [Right Arm] 187/92 H Blood Pressure Mean [Right Arm] 123 Blood Pressure Source [Right Arm] Automatic Cuff Blood Pressure Position [Right Arm] Sitting 02 Sat by Pulse Oximetry 97 Oxygen Delivery Method Room Air - Lab Data Lab results reviewed: Yes: I reviewed the patient's lab results. Lab Results 12/21/19 17:12: WBC 11.1 H, RBC 2.79 L, Hgb 8.3 L, Hct 26.1 L, MCV 93.5, MCH 29.8, MCHC 31.8, RDW 14.7, Plt Count 187, MPV 8.2, Neut % (Auto) 75.6, Lymph % (Auto) 14.6, [place] % (Auto) 6.8, Eos % (Auto) 2.7, Baso % (Auto) 0.4, Neut # (Auto) 8.4 H, Lymph # (Auto) 1.6, [place] # (Auto) 0.8, Eos # (Auto) 0.3, Baso # (Auto) 0.0 12/21/19 17:12: Sodium 141, Potassium 7.0 H*, Chloride 109 H, Carbon Dioxide 19 L, Anion Gap 20.0 H, BUN 134 H*, Creatinine 12.30 H, Estimated Creat Clear 14, Estimated GFR 4 L*, Est GFR ( Amer) 5 L*, Glucose 207 H, Calcium 6.8 L, Total Bilirubin 0.2, AST 22, ALT 36, Alkaline Phosphatase 94, Total Protein 5.8 L, Albumin 3.1 L, Globulin 2.7, Albumin/Globulin Ratio 1.1 12/21/19 17:12: PT 9.8, INR 0.95, APTT 24.9 12/21/19 17:12: Plasma/Serum Alcohol < 10 12/21/19 17:12: Salicylates < 1.0 L, Acetone Level None detected 12/21/19 17:33: Ammonia 16 Result diagrams: 12/21/19 17:12 12/21/19 17:12 Orders (Tests/Meds): ED MEDICATIONS Generic Name Dose Route Start Last Admin Trade Name Freq PRN Reason Stop Dose Admin Sodium Chloride 1,000 mls @ 999 mls/hr 12/21/19 15:45 12/21/19 17:21 Sod Chlor 0.9% 1000ml Bag IV 12/21/19 16:45 999 mls/hr .Q1H1M JALEN Administration Discontinued Medications Generic Name Dose Route Start Last Admin Trade Name Freq PRN Reason Stop Dose Admin Dextrose 50 ml 12/21/19 17:51 12/21/19 18:30 Dextrose 50% 50ml Syringe IVP 12/21/19 17:52 50 ml ONCE ONE Administration Insulin Human Regular 10 unit 12/21/19 17:51 12/21/19 18:30 Humulin R Insulin 100 Units/Ml 10ml Vial IVP 12/21/19 17:52 10 unit ONCE ONE Administration Sodium Bicarbonate 8 meq 12/21/19 17:51 Sodium Bicarbonate 8.4% 50ml Vial IV 12/21/19 17:52 ONCE ONE Sodium Bicarbonate 100 meq 12/21/19 17:57 12/21/19 18:30 Sodium Bicarbonate 8.4% 50ml Syringe IV 12/21/19 17:58 100 meq ONCE ONE Administration Sodium Polystyrene Sulfonate 15 gm 12/21/19 17:51 12/21/19 18:30 Kayexalate 15gm/60ml Bottle PO 12/21/19 17:52 15 gm ONCE ONE Administrat
--- NOTE | 2019-12-21 16:09 | PC.NURSE ---
Pt with Rad.
[2019-12-21 16:55] VITALS: BP 147/64; PULSE 75; O2SAT 94
[2019-12-21 17:31] VITALS: BP 166/71; PULSE 72; O2SAT 96
[2019-12-21 17:35] LABS: Basophils % 0.4 % (0.1-2.0); Eosinophils # 0.3 K/mm3 (0.0-0.4); Eosinophils % 2.7 % (0.1-12.0); Hematocrit 26.1 % (42.0-52.0); Hemoglobin 8.3 g/dL (14.1-18.0); Lymphocytes # 1.6 K/mm3 (0.7-4.5); Lymphocytes % 14.6 % (10-50); Mean Corpuscular HGB Conc 31.8 g/dL (31.8-35.4); Mean Corpuscular Hemoglobin 29.8 pg (27.0-31.2); Mean Corpuscular Volume 93.5 fl (80-94); Mean Platelet Volume 8.2 fl (7.4-10.4); Monocytes # 0.8 K/mm3 (0.1-1.0); Monocytes % 6.8 % (1.7-9.3); Neutrophils # 8.4 K/mm3 (1.8-7.8); Neutrophils % 75.6 % (37.0-80.0); Platelet Count 187 K/mm3 (142-424); Red Blood Count 2.79 M/mm3 (4.60-6.20); Red Cell Distribution Width 14.7 % (11.5-17.5); White Blood Count 11.1 K/mm3 (4.8-10.8)
[2019-12-21 17:39] LABS: Chloride 109 mmol/L (98-107)
[2019-12-21 17:40] LABS: Sodium 141 mmol/L (136-145)
[2019-12-21 17:42] LABS: Alanine Aminotransferase 36 U/L (12-78); Aspartate Amino Transferase 22 U/L (17-59); Creatinine Clearance Estimated 14 mL/min (50-200); Estimated Glomerular Filt Rate 4 ml/min (>60); GFR (African American) 5 ML/MIN (>60)
[2019-12-21 17:43] LABS: Albumin Level 3.1 g/dl (3.5-5.0); Albumin/Globulin Ratio 1.1 (1.1-1.8); Alkaline Phosphatase 94 U/L (38-126); Bilirubin,Total 0.2 mg/dl (0.2-1.3); Carbon Dioxide 19 mmol/L (22.0-30.0); Globulin 2.7 g/dL (1.3-3.2); Glucose 207 mg/dl (74-100); Total Protein,Serum 5.8 g/dl (6.3-8.2)
[2019-12-21 17:44] LABS: Ammonia 16 umol/L (9-30)
[2019-12-21 17:45] LABS: Calcium 6.8 mg/dl (8.4-10.2)
[2019-12-21 17:46] LABS: Activated Partial Thrombo Time 24.9 seconds (23.6-34.0); INR 0.95 (0.9-1.1); Prothrombin Time 9.8 seconds (9.4-11.8)
--- NOTE | 2019-12-21 17:47 | PC.NURSE ---
ZIGGY JACOB notified of critical results on Potassium, Creatinine, and Ca Lucy in lab states she is having to rerun the BUN on pt.
[2019-12-21 17:51] LABS: Acetone, Serum (Rapid) None Detected (None Detect); Blood Urea Nitrogen 134 mg/dl (9-20)
--- NOTE | 2019-12-21 17:51 | PC.NURSE ---
ER MD gave verbal orders on pt for medications
[2019-12-21 17:58] LABS: Ethyl Alcohol < 10 mg/dl (0-10); Salicylate < 1.0 mg/dL (2.0-20.0)
--- NOTE | 2019-12-21 18:18 | ECG_ITS ---
APPROVED REPORT Exam: Resting ECG HR:72 bpm ECG Measurements Heart Rate 72 AXES LA 174 P 50 QRSd 88 QRS 51 QT 410 T -8 QTc 448 <Conclusion> Normal sinus rhythm Possible Old Inferior PA Poor R Wave Progression Abnormal ECG Electronically signed by : Antony Escobedo, 12/22/2019 22:00:56
--- NOTE | 2019-12-21 18:27 | PC.NURSE ---
calling [facility] for possible transfer
--- NOTE | 2019-12-21 18:30 | PC.NURSE ---
[facility] bed coordinator staff called back stating she would like to make our ER MD aware that they do not have any beds available at this time but will possibly have beds available on their next shift. Wanted to know if we would still like to seek transfer of pt. ER MD stated yes we would still like to speak to them about transferring pt.
[2019-12-21 18:33] VITALS: BP 187/92; PULSE 76; O2SAT 97
--- NOTE | 2019-12-21 18:38 | PC.NURSE ---
Dr Reynolds speaking with [facility] at this time
--- NOTE | 2019-12-21 18:54 | PC.NURSE ---
pt accepted to [facility] per Dr. Braeden Olson at [facility] requesting a face sheet, will fax it at this time
--- NOTE | 2019-12-21 19:15 | PC.NURSE ---
Report called to MELISSA Jackson at [facility].
--- NOTE | 2019-12-21 19:17 | PC.NURSE ---
FSBS 189 at this time.
--- NOTE | 2019-12-21 19:18 | PC.NURSE ---
pt assigned to room [address] [place] [address]
[2019-12-21 19:23] LABS: POC Glucose,Bedside 189 (70-110)
--- NOTE | 2019-12-21 19:45 | PC.NURSE ---
call placed for transfer ambulance at this time.
[2019-12-21 20:36] VITALS: BP 154/94; PULSE 74; RESP 18; O2SAT 97
[2019-12-21 21:47] VITALS: BP 158/92; PULSE 78; RESP 18; TEMP 36.7; O2SAT 97
== END 2019-12-21 21:52 | disposition short-term general hospital (02) ==
PROVIDERS: Emergency Provider Emergency Medicine; PCP Family Medicine
DX: N17.8 Other acute kidney failure (principal); F41.8 Other specified anxiety disorders; I25.2 Old myocardial infarction; I10 Essential (primary) hypertension; E11.65 Type 2 diabetes mellitus with hyperglycemia; K21.9 Gastro-esophageal reflux disease without esophagitis; E78.5 Hyperlipidemia, unspecified; I73.9 Peripheral vascular disease, unspecified; Z79.4 Long term (current) use of insulin; Z88.2 Allergy status to sulfonamides; Z79.899 Other long term (current) drug therapy; R42 Dizziness and giddiness
CPT/HCPCS: 70450; 80053; 80329; 82009; 82140; 82962; 85025; 85610; 85730; 93005; 96365; 96375; 99284

== ENCOUNTER → 2020-11-04 14:46 | Outpatient (CLI) | payer MEDICARE, SELFPAY | LOC: RT 14:47 | PROVIDERS: PCP Family Medicine; Visit Provider Family Medicine | DX: R05 Cough (principal) | CPT/HCPCS: 94060 ==

== ENCOUNTER → 2021-06-02 09:07 | Outpatient (CLI) | payer MEDICARE, SELFPAY | PROVIDERS: Visit Provider Nurse Practitioner | DX: U07.1 COVID-19 (principal) | CPT/HCPCS: C9803; U0003; U0005 ==

== ENCOUNTER → 2021-10-22 10:17 | Outpatient (CLI) | payer MEDICARE, SELFPAY ==
--- NOTE | 2021-10-22 10:31 | XR_ITS ---
FINAL REPORT CLINICAL HISTORY: foot pain, charcot foot FINDINGS: RIGHT FOOT Three views were obtained. There are severe degenerative changes. There is fusion of multiple bones of the midfoot. There is erosion or resection of the talus. 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 Note is made of vascular calcification. There is soft tissue swelling. Hallux valgus deformity is identified. There are calcaneal spurs. 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 Reviewed, Interpreted and Dictated by Luan Torres III, MD Transcribed by Whitney Murphy Authenticated and . [facility]
== END ==
LOC: RAD 10:19
PROVIDERS: PCP Family Medicine; Visit Provider Orthopaedic Surgery
DX: M79.671 Pain in right foot (principal)
CPT/HCPCS: 73630

== ENCOUNTER → 2021-12-03 09:24 | Outpatient (CLI) | payer MEDICARE, SELFPAY ==
--- NOTE | 2021-12-03 09:36 | XR_ITS ---
FINAL REPORT CLINICAL HISTORY: ankle pain FINDINGS: RIGHT ANKLE Three views were obtained. There is no acute fracture or dislocation. There is sclerosis, collapse, and disorganization of the intertarsal joints. The talus is not clearly seen. The distal tibia and dense on the superior margin of the calcaneus. There are prominent osteophytes of the dorsal aspect of the midfoot. Prominent soft tissue swelling is seen about the ankle. There is a large calcaneal spur. There is moderate vascular calcification concerning for underlying diabetes. IMPRESSION: Advanced neuropathic changes with secondary hypertrophic changes. Diffuse soft tissue swelling about the ankle, cannot exclude underlying cellulitis. Reviewed, Interpreted and Dictated by Alexander Jane MD Transcribed by Whitney Murphy Authenticated and [facility]
== END ==
LOC: RAD 09:24
PROVIDERS: PCP Family Medicine; Visit Provider Orthopaedic Surgery
DX: G89.29 Other chronic pain (principal); M25.571 Pain in right ankle and joints of right foot
CPT/HCPCS: 73610

== ENCOUNTER 2022-01-04 14:00 | Outpatient (RCR) | payer MEDICARE, SELFPAY ==
--- NOTE | 2021-11-10 09:23 | HMH.PTOPWND ---
Rehab Outpt Wound Evaluation Rehab OP Wound Evaluation Start: 11/10/21 08:45 Freq: Status: Active Protocol: Document 11/10/21 09:13 KATERINE (Rec: 11/10/21 09:23 KATERINE [id number]) Electronically Signed By Marlon Palacio, PT 11/10/21 09:13 Subjective/History History History Pt is 55 yowm who presents with increased R LE edema for several years. 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 He has had prior L foot I&D with toe/MT amputations and R foot surgery with midfoot fusion. He presents with B LE hyperkeratosis and R foot pitting edema. He has severe diabetic neuropathy with no sensation from mid-calf distally on the R LE. He has PMH of HTN, HL, kidney disease requiring dialysis, CAD with MN, BPH, cardiomyopathy, CHF, DVT, DM-II, sacral decubitus. Subjective Subjective Currently no c/o pain. 2+ pitting edema to R foot and ankle, 1+ pitting edema to the rest of his lower leg. CVI likely as well due to significantly reduced R ankle ROM and likely Charcot foot. Lymphedema Eval Classification of Lymphedema Secondary Lymphedema Yes Stemmer's sign Stemmer's Sign yes Stage of Lymphedema Lymphedema stages Stage II (Pitting edema, increased fibrosis w/ decreased pitting) Skin Changes Dry Skin Yes Hyperkeratosis Yes: moderate Brittle Uneven Nails Yes Discoloration of Skin Yes: severe Other Changes Yes Affected Extremities Areas Affected by Lymphedema/Edema Right Lower Extremity,Left Lower Extremity Manual Lymphatic Drainage Treatment Area MLD Treatment Area Right Lower Extremity,Left Lower Extremity Wound Problems/Impairments Impairments Problems/Impairmments Impaired Range of Motion, Impaired Strength,Impaired Endurance,Impaired Transfers,
--- NOTE | 2021-12-07 14:50 | HMH.RHREAS ---
Rehab Reassessment Rehab OP Re-assessment Start: 12/07/21 14:46 Freq: Status: Active Protocol: Document 12/07/21 14:46 KATERINE (Rec: 12/07/21 14:50 KATERINE [id number]) Electronically Signed By Marlon Palacio, PT 12/07/21 14:46 Rehab Re-assessment Subjective Subjective Pt reports no c/o pain in B LE . I can't feel anything on my feet though. Objective Objective Notes R LE 2+ pitting edema remains. Hyperkeratosis mildly decreased. No fibrotic edema noted at this time. Assessment Progress Assessment Progressing as Expected Assessment Notes Pt has shown significant improvements in edema overall with > 10 cm reduction of total R LE limb circumferential measurements. Tolerating increased compression well. Needs more reduction in hyperkeratosis. Patient goals met ST,2,3 Goals Not Met LT,2,3,4,5 Revised Goals none Plan Plan Continue per initial POC. Frequency of Therapy 2 x/wk Duration of therapy 4 wks Time and Billing Re-Eval Time 13 Re-Eval Billing Units 1 PHYSICIAN CERTIFICATION: I certify the specified therapy services for Vu Madden are required, authorized, and reviewed every 30 days.
== END 2022-01-04 14:05 | disposition home or self-care (01) ==
LOC: PT 14:00
PROVIDERS: PCP Family Medicine; Visit Provider Orthopaedic Surgery
DX: R60.0 Localized edema (principal); I89.0 Lymphedema, not elsewhere classified
CPT/HCPCS: 97140; 97162; 97164; 97760

== ENCOUNTER 2023-08-04 08:54 | Outpatient (CLI) | payer MEDICARE, SELFPAY ==
--- NOTE | 2023-08-04 09:15 | XR_ITS ---
FINAL REPORT CLINICAL HISTORY: ATYPICAL CHEST PAIN; COPD; CHRONIC COUGH COMPARISON: 11/15/2018 FINDINGS: Two views of the chest were obtained. Cardiomegaly is present. The mediastinum is normal. There is a mild right base opacity, atelectasis or pneumonia. There is no pneumothorax. The bony thorax is intact. IMPRESSION: Cardiomegaly. Mild right base opacity, atelectasis versus pneumonia. Reviewed, Interpreted and Dictated by Luan Torres III, MD Transcribed by Gwen Vyas Authenticated and . [facility]
== END 2023-08-04 23:59 ==
LOC: RAD 08:55
PROVIDERS: PCP Family Medicine; Visit Provider Family Medicine
DX: R05.3 Chronic cough (principal); R07.89 Other chest pain; J44.9 Chronic obstructive pulmonary disease, unspecified
CPT/HCPCS: 71046

== ENCOUNTER 2023-08-30 07:43 | Day surgery (SDC) | payer MEDICARE, SELFPAY ==
[2023-08-30] VITALS (12 sets, daily range): BP systolic 158–191; BP diastolic 66–96; PULSE 61–79; RESP 16–20; TEMP 37; O2SAT 90–100; BMI 46.2
--- NOTE | 2023-08-30 07:05 | IR_ITS ---
APPROVED REPORT Patient Location: Outpatient PROCEDURES Selective coronary angiogram Catheter placement in the right radial artery Right radial artery retrograde angiogram Right femoral arterial access Drug-eluting stent deployment to the ostial proximal LAD INDICATION Coronary artery disease, Accelerated angina pectoris, Right radial calcification atherosclerotic plaque, Chronic renal failure Informed consent was obtained prior to the procedure. COMPLICATIONS NONE Estimated Blood Loss: LESS THAN 10 ML TECHNIQUE One percent lidocaine used to anesthetize the right anterior aspect of the wrist. The right radial artery was accessed via the Seldinger technique. A 6 Congolese sheath could not be advanced through the radial artery although it was partially inserted. Retrograde angiography demonstrated dense calcification throughout the radial artery. A long 035 wire was advanced and a 4 Congolese sheath was inserted. A JL 4 and JR4 catheter were used to perform selective coronary angiography. Following this an arterial cocktail using heparin and nitroglycerin verapamil and lidocaine was administered. The 4 Congolese sheath was upsized with a 5 Congolese dilator however the artery would not accommodate a 6 Congolese dilator due to the extensive calcification. At this point it was decided to terminate right radial access and proceed with groin access. 1% lidocaine was used anesthetize the right groin the right femoral artery was accessed via the center technique and a 6 Congolese sheath is placed in the right femoral artery. An EBU 4.5 guide catheter was placed in left main artery followed by therapeutic heparin giving a therapeutic ACT. A Choice PT extra-support wire was placed into the LAD and a 3 mm x 18 mm [place] frontier stent was deployed at 24 kaden reducing the stenosis. A 3.5 x 12 mm noncompliant balloon was then deployed in the ostial proximal and mid segment of the stent and deployed at 24 kaden to further post dilate. A 4 mm x 12 mm noncompliant balloon was then deployed at 24 kaden in the ostial proximal midportion of the stent further post dilating giving much better angiographic results with better expansion of the stent and reduction of the atherosclerotic calcific plaque. At the end of the procedure the apparatus was removed the groin is reprepped closure change sheath was removed and hemostasis was achieved using Perclose device patient was transferred to the postop holding in stable condition. LEAH-3 flow was present before and after the procedure ANGIOGRAPHIC RESULTS The left main artery Normal The left anterior descending artery Has an ostial proximal concentric 80 to 90% calcified stenosis with remaining vessel widely patent The circumflex artery Nondominant mild atheromatous plaque The right coronary artery Large dominant with mild diffuse 10% atheromatous plaque The OLIVEIRA ventriculogram reveals Not performed The left ventricular end-diastolic pressure Not measured IMPRESSION Severe proximal LAD stenosis Successful stent to the ostial proximal LAD severe disease reduced to less than 10% with 1 drug-eluting stent PLAN 1. Plavix 75 mg daily plus aspirin 81 mg daily 2. LDL less than 55 to be achieved with high intensity statin 3. Avoidance of tobacco products 4. Risk factor modification 5. Cardiac rehabilitation Electronically signed by : Chucky Valenzuela MD 08/30/2023 13:40:57
[2023-08-30 08:23] LABS: Basophils # 0.1 K/mm3 (0-0.2); Basophils % 1.3 % (0.1-2.0); Eosinophils # 0.7 K/mm3 (0.0-0.4); Eosinophils % 6.7 % (0.1-12.0); Hematocrit 34.6 % (42.0-52.0); Hemoglobin 11.1 g/dL (14.1-18.0); Lymphocytes % 9.8 % (10-50); Mean Corpuscular HGB Conc 31.9 g/dL (31.8-35.4); Mean Corpuscular Hemoglobin 33.5 pg (27.0-31.2); Mean Corpuscular Volume 105.1 fl (80-94); Mean Platelet Volume 7.6 fl (7.4-10.4); Monocytes # 0.6 K/mm3 (0.1-1.0); Monocytes % 6.1 % (1.7-9.3); Neutrophils # 7.7 K/mm3 (1.8-7.8); Platelet Count 254 K/mm3 (142-424); Red Cell Distribution Width 14.3 % (11.5-17.5); White Blood Count 10.1 K/mm3 (4.8-10.8)
[2023-08-30 08:32] LABS: Chloride 97 mmol/L (98-107); Sodium 137 mmol/L (136-145)
[2023-08-30 08:35] LABS: Blood Urea Nitrogen 50 mg/dl (9-20); Creatinine Clearance Estimated 11 mL/min (50-200); Estimated Glomerular Filt Rate 7 ml/min (>60); GFR (African American) 8 ML/MIN (>60)
[2023-08-30 08:36] LABS: Calcium 8.8 mg/dl (8.4-10.2); Carbon Dioxide 31 mmol/L (22.0-30.0); Glucose 340 mg/dl (74-100)
[2023-08-30] MEDS: VERAPAMIL 2.5MG/ML 2ML VIAL 2.5 MG IV (10:54)
[2023-08-30] MEDS: diphenhydrAMINE 50MG/ML VIAL 50 MG IV (10:54)
[2023-08-30] MEDS: LIDOCAINE 1% 10ML MDV 20 ML IJ (10:55)
[2023-08-30] MEDS: NITROGLYCERIN 800MCG/8ML SYR (CATH LAB) 800 MCG IA (10:55)
[2023-08-30] MEDS: HEPARIN 1,000 UNITS/500ML NS (CATH LAB) 3000 UNIT IV (10:56)
[2023-08-30] MEDS: 0.9 % SODIUM CHLORIDE 500 ML 25 ML IV (10:56)
[2023-08-30] MEDS: HEPARIN 1,000 UNITS/ML 10ML VIAL (CATH LAB) 10000 UNIT IV (10:56)
[2023-08-30] MEDS: MIDAZOLAM HCL 1MG/1ML 5ML VIAL 1 MG IV (10:57)
[2023-08-30] MEDS: FENTANYL 100MCG/2ML VIAL 50 MCG IV (10:57)
[2023-08-30] MEDS: CLOPIDOGREL 300MG TABLET 600 MG PO (11:59)
[2023-08-30] MEDS: IOPAMIDOL-370 (76%);100ML BOTTLE 180 ML IV (12:32)
[2023-08-30 12:35] LABS: CATHL Activated Clotting Time 330 SEC (74-125)
== END 2023-08-30 15:20 | disposition home or self-care (01) ==
PROVIDERS: PCP Family Medicine; Visit Provider Internal Medicine
DX: I25.118 Atherosclerotic heart disease of native coronary artery with other forms of angina pectoris (principal); I25.5 Ischemic cardiomyopathy; I12.0 Hypertensive chronic kidney disease with stage 5 chronic kidney disease or end stage renal disease; E78.5 Hyperlipidemia, unspecified; M14.60 Charcot's joint, unspecified site; E11.22 Type 2 diabetes mellitus with diabetic chronic kidney disease; R07.2 Precordial pain; R06.00 Dyspnea, unspecified; N18.6 End stage renal disease; Z79.899 Other long term (current) drug therapy; Z79.4 Long term (current) use of insulin; I70.218 Atherosclerosis of native arteries of extremities with intermittent claudication, other extremity
CPT/HCPCS: 80048; 85025; 85347; 92928; 93455; 99152; 99153; C1725; C1760; C1769; C1876; C1894; C9600; J1644; Q9967

== ENCOUNTER 2023-09-05 12:40 | Outpatient (CLI) | payer MEDICARE, SELFPAY ==
--- NOTE | 2023-09-05 12:43 | CT_ITS ---
FINAL REPORT TECHNIQUE: Axial images were obtained from the lung apex to the mid abdomen by computed tomography. Coronal reformatted images were obtained. This study was performed with techniques to keep radiation doses as low as reasonably achievable, (ALARA). Individualized dose reduction techniques using automated exposure control or adjustment of mA and/or kV according to the patient''s size were employed. CLINICAL HISTORY: ABN CXR,CHRONIC COUGH COMPARISON: None FINDINGS: There is no axillary adenopathy. There are small scattered lymph nodes in the mediastinum. Heart size is normal. There is no pericardial or pleural effusion. Dense coronary artery calcifications are noted. There is pleural and parenchymal scarring at the lung bases which correlate with findings on chest x-ray. Limited images of the upper abdomen demonstrate bilateral adrenal nodules. Nodule in the right measures 1.8 cm and is consistent with an adenoma. The nodule on the left measures 2.5 cm of intermediate attenuation and is indeterminate. IMPRESSION: Indeterminate 2.5 cm left adrenal nodule. Pleural and parenchymal scarring in the lung bases correlating with findings on chest x-ray. Reviewed, Interpreted and Dictated by Alexander Jane MD Transcribed by Barbara Stewart Authenticated and [facility]
== END 2023-09-05 23:59 | disposition home or self-care (01) ==
LOC: RAD 12:40
PROVIDERS: PCP Family Medicine; Visit Provider Family Medicine
DX: R05.3 Chronic cough (principal); R93.89 Abnormal findings on diagnostic imaging of other specified body structures
CPT/HCPCS: 71250

== ENCOUNTER 2023-09-06 13:28 | Outpatient (CLI) | payer MEDICARE, SELFPAY ==
--- NOTE | 2023-09-06 13:28 | CA_ITS ---
APPROVED REPORT EXAM: Comprehensive 2D, Doppler, and color-flow Echocardiogram Accountant Certified Public: Diann Lara CRT Ht: 6 ft 0 in Wt: 341lbs BSA: 2.67 BP: 161/57 mmHg Indications: CAD-coronary stents, CM,End stage renal disease 2D Dimensions LA Volume 100.70 mL LA Volume Index 37.029568 mL/m2 (M/F) 16-34 M-Mode Dimensions RVDd 3.25 cm (0.9-2.6) LA Diam 4.71 cm (1.9-4.0) LVDd 5.07 cm (3.5-5.7) LVDs 3.45 cm (3.5-5.7) IVSd 2.36 cm (0.6-1.1) PWd 1.08 cm (0.6-1.1) EF (Teich) 59.80% FS 32.00% EDV (Teich) 122.10 mL TAPSE 2.91 (<1.7) ESV (Teich) 49.10 mL LV Diastology E Decel Time 233 (160-240 msec) E/A Ratio 0.97 MED A' 10.30 cm/s LAT A' 12.10 cm/s Aortic Valve AO Peak GR. 10.10 mmHg Mitral Valve MV E Max Torsten. 101.0 (40-130 cm/s) MV A Velocity 104.0 (40-130 cm/s) E/A Ratio 0.97 MV PHT 68.0 ms Pulmonary Valve PV Peak Velocity 95.0 (50-150 cm/s) Tricuspid Valve TR P. Velocity 105.00 cm/s Left Ventricle The left ventricle is normal size. The left ventricular systolic function is normal. The left ventricular ejection fraction is within the normal range. There is increased LV wall thickness. There is normal LV segmental wall motion. Transmitral Doppler flow pattern suggests impaired LV relaxation. LVEF is 60%. Right Ventricle The right ventricle is normal size. The right ventricular systolic function is normal. Atria The left atrium size is normal. The right atrium size is normal. There is no Doppler evidence of interatrial shunt. Aortic Valve The aortic valve is mildly thickened. There is no aortic valvular stenosis. Trace aortic regurgitation. Mitral Valve Mild mitral annular calcification. The mitral valve leaflets are mildly thickened. No evidence of mitral valve stenosis. Trace mitral regurgitation. Tricuspid Valve The tricuspid valve leaflets are thin and pliable. Trace tricuspid regurgitation. There is insufficient TR jet to estimate RVSP. Pulmonic Valve The pulmonary valve is normal in structure. Trace pulmonic regurgitation. Great Vessels The aortic root is normal in size. The ascending aorta is normal in size. The IVC is dilated, but collapses > 50% with respirophasic variation. The RA pressure is estimated at 8 mmHg. Pericardium There is no pericardial effusion. Other Information Study Quality: Fair Conclusion Normal biventricular systolic function. No significant valvular stenosis or regurgitation. Electronically signed by : Meagan Perez MD 09/10/2023 22:24:38
== END 2023-09-06 23:59 ==
LOC: RT 13:28
PROVIDERS: PCP Family Medicine; Visit Provider Physician Assistant
DX: I25.10 Atherosclerotic heart disease of native coronary artery without angina pectoris (principal); I11.9 Hypertensive heart disease without heart failure; E78.5 Hyperlipidemia, unspecified; M14.60 Charcot's joint, unspecified site; E11.9 Type 2 diabetes mellitus without complications; R07.2 Precordial pain; R06.00 Dyspnea, unspecified; I42.8 Other cardiomyopathies; Z79.4 Long term (current) use of insulin
CPT/HCPCS: 93306

== ENCOUNTER 2023-09-22 15:39 | Emergency (ER) | payer MEDICARE, SELFPAY ==
[2023-09-22 15:50] VITALS: BP 192/90; PULSE 71; RESP 20; TEMP 36.7; O2SAT 93; BMI 45.5
--- NOTE | 2023-09-22 16:19 | XR_ITS ---
PROCEDURE INFORMATION: Exam: XR Right Foot Exam date and time: 09/22/2023 4:26 PM Age: 57 years old Clinical indication: Injury or trauma; Fall; Swelling (edema); Foot; Right; Additional info: Fell out of bed 2 month ago, right great toe TECHNIQUE: Imaging protocol: Radiologic exam of the right foot. Views: 3 or more views. COMPARISON: CR XR FOOT RT MIN 3V 10/22/2021 10:32 AM FINDINGS: Bones/joints: Healing nondisplaced oblique fracture of the mid diaphysis of the 1st distal phalanx. Severe degenerative changes at the ankle joint and midfoot. Moderate degenerative changes at the 1st and 2nd metatarsophalangeal joints. Mature fusion of the tarsal bones and bases of the metatarsals. Osteopenia. Soft tissues: Diffuse soft tissue swelling. Vasculature: Extensive atherosclerotic disease. IMPRESSION: 1. Healing nondisplaced oblique fracture of the mid diaphysis of the 1st distal phalanx. 2. Severe arthritis again seen, possibly due to a neuropathic joint.
--- NOTE | 2023-09-22 16:19 | EXP.UTC ---
Discharge Plan Disposition Patient Disposition: Home, Self-Care Condition: Good Prescriptions Prescriptions: New clindamycin HCl 300 mg capsule 300 mg PO Q8H 10 Days Qty: 30 0RF mupirocin 2 % ointment 1 applic topical TID Qty: 22 0RF Rx Instructions: Apply to wounds as directed No Action furosemide [Lasix] 40 mg tablet 40 mg PO DAILY cholecalciferol (vitamin D3) 2,000 unit capsule 2,000 units PO DAILY Qty: 90 Patient Comments: TAKE 1 CAPSULE BY MOUTH ONCE DAILY (DME) blood sugar diagnostic Strip See Dose Instructions .ROUTE .MEDSUPPLY Qty: 0 Dose Instruction: As directed Rx Instructions: As directed [place] blood-glucose meter Kit See Dose Instructions .ROUTE .MEDSUPPLY Qty: 0 Dose Instruction: As directed Rx Instructions: As directed ([facility] insulin syringe-needle U-100 1 mL 31 gauge x 5/16 syringe See Dose Instructions .ROUTE .MEDSUPPLY Qty: 0 Dose Instruction: As directed Rx Instructions: As directed ([facility] blood glucose control, low Solution See Dose Instructions .ROUTE .MEDSUPPLY Qty: 0 Dose Instruction: As directed Rx Instructions: As directed ([facility] lancets 30 gauge misc See Dose Instructions .ROUTE .MEDSUPPLY Qty: 0 Dose Instruction: As directed Rx Instructions: As directed metolazone 10 mg tablet 10 mg PO DAILY calcium acetate(phosphat bind) 667 mg capsule 667 mg PO ONCE nifedipine 60 mg tablet extended release 24hr 60 mg PO DAILY carvedilol 25 mg tablet 25 mg PO BID insulin asp prt-insulin aspart [Novolog Mix 70-30FlexPen U-100] 100 unit/mL (70-30) insulin pen 30 unit SQ DAILY insulin asp prt-insulin aspart [Novolog Mix 70-30FlexPen U-100] 100 unit/mL (70-30) insulin pen 50 unit SQ HS torsemide 100 mg tablet 100 mg PO DAILY Trulicity 1.5 mg/0.5 mL pen injector 1.5 mg SQ DIRECTED Nayelitri Aerosphere 160-9-4.8 mcg/actuation HFA aerosol inhaler 2 inh inhalation BID atorvastatin 20 mg tablet See Rx Instructions .ROUTE .COMPLEX Qty: 90 0RF Dose Instruction: Take 1 tablet by mouth once daily Rx Instructions: Take 1 tablet by mouth once daily aspirin 81 MG tablet,delayed release (DR/EC) 81 mg PO DAILY clopidogrel [Plavix] 75 mg Tablet 75 mg PO DAILY 30 Days Qty: 30 6RF Referrals Follow up/Referrals: Bello Davis MD [Primary Care Provider] - See instructions Activity Restrictions/Add. Instructions Additional Instructions/Restrictions: Take antibiotics as prescribed Follow up with your Family Doctor as scheduled Follow up with Wound care Follow up with Podiatry as recommended if you do not want to go here at [facility] you may call [facility] at ? they are located in [facility] [place] Straight to ER if any life threatening symptoms Clinical Impressions Clinical Impression: Fracture of toe, Diabetic foot ulcer Instructions Patient Instructions: DI for Toe Fracture, Clindamycin, Mupirocin Discharge ED Provider: Ria Connolly [facility] [place] HPI General Stated complaint: Sore on right foot Mode of Arrival: Ambulatory Source of Information: Patient and Relative Limitations: No Limitations Time Seen by Provider: 09/22/23 16:19 Description of Symptoms (Recalled from Triage Doc. by RN): PATIENT STATES HE FELL OUT OF BED 1 MONTH AGO AND BELIEVES HIS RIGHT GREAT TOE IS BROKEN. HE ALSO STATES A BLOOD BLISTER APPEARED AND HAS POPPED AND HE IS WORRIED THAT IT IS INFECTED HEENT Symptoms (Recalled from RN notes): No Resp Symptoms (Recalled from RN notes): No Skin Symptoms (Recalled from RN notes): Yes MS Symptoms (Recalled from RN notes): Yes Functional Status (Recalled from RN notes): WNL History of Present Illness Provider Complaint: Patient states that he has not got feeling in his foot/toes and he fell out of bed about a month or so ago and mother thinks he may have broken his right great toe, states he had a blood blister on the tip of his toe that she popped and it went down and now he has a place on the side of his toe States also has a couple sore like areas on the top of his foot where he had blisters that busted but doesnt think it is infected and wants an xray to see if his toe is broken or not Related Data Home Medications Medication Instructions Recorded Confirmed furosemide 40 mg tablet (Lasix) 40 mg PO DAILY diuretic 05/23/17 09/18/23 aspirin 81 mg tablet,delayed 81 mg PO DAILY HEART HEALTH 11/15/18 09/18/23 release cholecalciferol (vitamin D3) 50 2,000 units PO DAILY Supplement 11/15/18 09/18/23 mcg (2,000 unit) capsule #90 caps blood glucose control, low #0 ea 05/03/19 09/18/23 blood sugar diagnostic #0 ea 05/03/19 09/18/23 blood-glucose meter #0 ea 05/03/19 09/18/23 insulin syringe-needle U-100 1 mL #0 ea 05/03/19 09/18/23 31 gauge x 5/16 lancets 30 gauge #0 ea 05/03/19 09/18/23 calcium acetate(phosphat bind) 667 667 mg PO ONCE 12/03/21 09/18/23 mg capsule carvedilol 25 mg tablet 25 mg PO BID 12/03/21 09/18/23 metolazone 10 mg tablet 10 mg PO DAILY 12/03/21 09/18/23 nifedipine 60 mg tablet,extended 60 mg PO DAILY 12/03/21 09/18/23 release 24 hr budesonide 160 mcg-glycopyr 9 2 inh inhalation BID 08/07/23 09/18/23 mcg-formot 4.8 mcg/actuation HFA inhaler (Breztri Aerosphere) dulaglutide 1.5 mg/0.5 mL 1.5 mg SQ DIRECTED 08/07/23 09/18/23 subcutaneous pen injector (Trulicity) insulin aspar prot-insulin aspart 30 unit SQ DAILY 08/07/23 09/18/23 100 unit/mL (70-30) subcutaneous pen (Novolog Mix 70-30FlexPen U-100) insulin aspar prot-insulin aspart 50 unit SQ HS 08/07/23 09/18/23 100 unit/mL (70-30) subcutaneous pen (Novolog Mix 70-30FlexPen U-100) torsemide 100 mg tablet 100 mg PO DAILY 08/07/23 09/18/23 Previous Rx's Medication Instructions Recorded atorvastatin 20 mg tablet See Rx Instructions .Route 06/20/22 .COMPLEX #90 tabs clopidogrel 75 mg tablet (Plavix) 75 mg PO DAILY 30 days #30 tabs 08/30/23 clindamycin HCl 300 mg capsule 300 mg PO Q8H 10 days #30 caps 09/22/23 mupirocin 2 % topical ointment 1 applic topical TID #22 grams 09/22/23 Allergies Allergy/AdvReac Type Severity Reaction Status Date / Time Sulfa (Sulfonamide Allergy Unknown Verified 09/18/23 10:46 Antibiotics) Worker's Comp Is this a Worker's Comp case?: No [facility] Disclaimer: The information contained in this section may have been updated after the patient was seen, as this information can be updated by other users. Medical History (Updated 09/22/23 @ 17:51 by Ria Connolly APRN) Diabetes mellitus, type 2 COPD (chronic obstructive pulmonary disease) Hypertension ESRD (end stage renal disease) Charcot's joint CAD (coronary artery disease) Surgical History (Updated 09/22/23 @ 16:12 by Elvie Rey RN) History of tonsillectomy Social History Smoking Status: Never smoker second hand exposure: Yes alcohol intake: never counseling provided: none substance use type: denies use current occupational status: disabled Travel in the last 8 weeks: None household members: none housing: house current occupational exposures/hazards: No caffeine: No ROS Obtained: Yes All systems reviewed & no additional complaints except as documented and Yes Systems reviewed as appropriate & no additional complaints except as documented Constitutional Constitutional: Reports system reviewed and no additional complaints, except as documented, Reports as per HPI and Denies fever(s) ENT Ears, Nose, Mouth, and Throat: Reports system reviewed and no additional complaints, except as documented and Reports as per HPI Cardiovascular Cardiovascular: Reports system reviewed and no additional complaints, except as documented and Reports as per HPI Respiratory Respiratory: Reports system reviewed and no additional complaints, except as documented and Reports as per HPI Musculoskeletal Musculoskeletal: Reports system reviewed and no additional complaints, except as documented and Reports as per HPI Integumentary/Breasts Skin/Breast: Reports system reviewed and no additional complaints, except as documented and Reports as per HPI Comments: fell out of bed a month or two ago and thinks his right great toe is broken, has open blisters on top of his foot and a place on the side of his right great toe Physical Exam General General appearance: alert and in no apparent distress Respiratory Respiratory exam: Present normal lung sounds bilaterally; Absent respiratory distress or wheezes Cardiovascular Cardiovascular exam: Present regular rate and normal heart sounds Expanded Lower Extremity Exam Right: Top foot image: 1. open lesion noted on top of foot 2. open lesion on top of foot patient reports had blister that popped 3. dark discolored area noted on right great toe and small dark area on tip of toe 4. swelling Neurological Exam Neurological exam: Present alert and oriented X3 Medical Decision Making Yaron Inquiry Pt receiving controlled substance: No Yaron was queried for this patient: No Vital Signs: 09/22/23 15:50 Temperature 98.1 F Temperature Source Oral Pulse Rate [Left Brachial] 71 Respiratory Rate 20 Blood Pressure [Left Arm] 192/90 H Blood Pressure Mean [Left Arm] 124 Blood Pressure Source [Left Arm] Automatic Cuff Blood Pressure Position [Left Arm] Sitting 02 Sat by Pulse Oximetry 93 L Oxygen Delivery Method Room Air Radiology Data #1: Image(s): Hand Image Reviewed: Yes I have reviewed radiologist's interpretation IMPRESSION: 1. Healing nondisplaced oblique fracture of the mid diaphysis of the 1st distal phalanx. 2. Severe arthritis again seen, possibly due to a neuropathic joint. Medical Decision Narrative: Discussed and recommended transfer to the ED for further evaluation and lab work due to hx of diabetes and other comorbititis and risk of infection and concern for infection and he declined states he doesnt think it is infected worried that he may have broken the toe wanting and xray, will do xray and again speak with patient about transfer to the ED Again discussed with patient about transfer to the ED for further work up and labs due to concern for infection and again patient declined states will try antibiotics at home and follow up with PCP patient aware of risks and still declined, will place on antibiotics discussed with pharmacy and due to hx and last labs considered recommended clindamycin due to allergy to sulfa, also recommended follow up with Podiatry and patient is refusing Podiatry here will talk with his PCP and see who they recommend Mother instructed not to put tape or bandaids on skin due to thin and can cause other wounds Patient already in shoe
[2023-09-22 17:50] VITALS: BP 192/90; PULSE 71; RESP 20; TEMP 36.7; O2SAT 93
== END 2023-09-22 17:52 | disposition home or self-care (01) ==
PROVIDERS: Emergency Provider Nurse Practitioner; PCP Family Medicine
DX: S92.424A Nondisplaced fracture of distal phalanx of right great toe, initial encounter for closed fracture (principal); E11.621 Type 2 diabetes mellitus with foot ulcer; W06.XXXA Fall from bed, initial encounter; Z79.4 Long term (current) use of insulin; Z79.85 Long-term (current) use of injectable non-insulin antidiabetic drugs; L97.519 Non-pressure chronic ulcer of other part of right foot with unspecified severity
CPT/HCPCS: 73630; 99204; 99212; G0463

== ENCOUNTER 2023-11-14 13:45 | Outpatient (CLI) | payer MEDICARE, SELFPAY ==
--- NOTE | 2023-11-14 13:53 | CA_ITS ---
FINAL REPORT CLINICAL HISTORY: .PAIN LEFT CALF FINDINGS: There is DVT of a calf vessel, likely a soleal vein. This is considered a deep branch. IMPRESSION: DVT isolated to calf veins as detailed above. Reviewed, Interpreted and Dictated by Lili Kirkland MD Transcribed by Whitney Murphy Authenticated and [facility]
== END 2023-11-14 23:59 | disposition home or self-care (01) ==
LOC: RT 13:47
PROVIDERS: PCP Family Medicine; Visit Provider Family Medicine
DX: M79.605 Pain in left leg (principal)
CPT/HCPCS: 93971

== ENCOUNTER 2023-12-27 11:34 | Outpatient (CLI) | payer MEDICARE, SELFPAY ==
[2023-12-27 12:29] LABS: Uric Acid 5.8 mg/dl (3.5-8.5)
[2023-12-27 12:31] LABS: Alanine Aminotransferase 16 U/L (12-78); Albumin Level 3.5 g/dl (3.5-5.0); Albumin/Globulin Ratio 1.3 (1.1-1.8); Alkaline Phosphatase 116 U/L (38-126); Anion Gap 16.5 mEq/L (5-15); Aspartate Amino Transferase 16 U/L (17-59); Bilirubin,Total 0.4 mg/dl (0.2-1.3); Blood Urea Nitrogen 59 mg/dl (9-20); Calcium 8.3 mg/dl (8.4-10.2); Carbon Dioxide 27 mmol/L (22.0-30.0); Chloride 97 mmol/L (98-107); Chol/HDL Ratio 5.2 (1-3.5); Cholesterol 99 mg/dl (140-200); Estimated Glomerular Filt Rate 7 ml/min (>60); GFR (African American) 8 ML/MIN (>60); Globulin 2.6 g/dL (1.3-3.2); HDL Cholesterol 19 mg/dl (40-60); Potassium 4.5 mmoL/L (3.5-5.1); Sodium 136 mmol/L (136-145); Total Protein,Serum 6.1 g/dl (6.3-8.2); Triglycerides 216 mg/dl (30-150); VLDL Cholesterol 43 mg/dL (0-40)
[2023-12-27 12:34] LABS: C-Reactive Protein 16.4 mg/L (0-4)
[2023-12-27 12:42] LABS: Direct LDL Cholesterol 38.86 mg/dL (100-129)
[2023-12-27 12:49] LABS: Erythrocyte Sedimentation Rate 53 mm/hr (0-20)
[2023-12-27 13:01] LABS: Thyroid Stimulating Hormone 4.28 uIU/mL (0.465-4.68)
[2023-12-27 13:55] LABS: Glucose 468 mg/dl (74-100)
[2023-12-28 12:14] LABS: RA Latex Turbid. <10.0 IU/mL (<14.0)
[2023-12-29 17:43] LABS: Antinuclear Antibodies, IFA Negative (.)
[2024-01-12 09:30] LABS: Antinuclear Antibodies (ANA) NEGATIVE
== END 2023-12-27 23:59 | disposition home or self-care (01) ==
LOC: LAB 11:36
PROVIDERS: Internal Medicine Pulmonary Disease; PCP Family Medicine; Visit Provider Nurse Practitioner Family
DX: R06.09 Other forms of dyspnea (principal); J84.9 Interstitial pulmonary disease, unspecified; E11.22 Type 2 diabetes mellitus with diabetic chronic kidney disease; N18.6 End stage renal disease; Z99.2 Dependence on renal dialysis; Z79.4 Long term (current) use of insulin; Z79.85 Long-term (current) use of injectable non-insulin antidiabetic drugs
CPT/HCPCS: 36415; 80053; 80061; 84439; 84443; 84550; 85651; 86038; 86140; 86225; 86235; 86431

== ENCOUNTER 2024-02-28 07:50 | Outpatient (CLI) | payer MEDICARE, SELFPAY ==
[2024-02-28 08:40] VITALS: PULSE 85; PULSE 90
[2024-02-28] MEDS: ALBUTEROL 0.083% 2.5 MG/3 ML NEB IH (08:40)
--- NOTE | 2024-02-28 09:06 | CT_ITS ---
FINAL REPORT TECHNIQUE: Axial CT images were performed from the lung apices through the upper abdomen. Coronal and sagittal reformats were submitted. This study was performed with techniques to keep radiation doses as low as reasonably achievable (ALARA). Individualized dose reduction techniques using automated exposure control or adjustment of mA and/or kV according to the patient's size were employed. CLINICAL HISTORY: .interstitial lung disease COMPARISON: Prior chest CT dated 09/05/2023 FINDINGS: CHEST CT WITHOUT CONTRAST: CT examination of the chest was performed without intravenous contrast using inspiratory, expiratory, and prone inspiratory evaluation of the chest for interstitial lung disease. There is no axillary adenopathy. There is no hilar or mediastinal mass or adenopathy. Heart size is normal. There is no pericardial or pleural effusion. Limited images of the upper abdomen are remarkable for bilateral adrenal nodules, not as well-seen as on the prior CT of August 2023, but the appearance appears grossly stable. Expiratory views failed to reveal any evidence of air trapping. Mild scarring is noted in the right lung base. Inspiratory films reveal no evidence of emphysema, bronchiectasis, or interstitial lung disease. Prone inspiratory images reveal no significant abnormality. IMPRESSION: No evidence of interstitial lung disease is present. There is no evidence of emphysema, bronchiectasis, or air trapping. Bilateral adrenal nodules are noted, not as well-seen as on the prior CT of August 2023. The appearance is stable. Reviewed, Interpreted and Dictated by Luan Torres III, MD Transcribed by Gwen Vyas Authenticated and [facility]
--- NOTE | 2024-02-28 09:20 | RESP.PFTSS ---
Patient states he is unable to do the six minute walk. His resting oxygen saturation is 87% on room air.
== END 2024-02-28 23:59 | disposition home or self-care (01) ==
LOC: RT 07:50
PROVIDERS: PCP Family Medicine; Visit Provider Internal Medicine Pulmonary Disease
DX: J84.9 Interstitial pulmonary disease, unspecified (principal); R06.09 Other forms of dyspnea
CPT/HCPCS: 71250; 94060; 94640; 94726; 94729; J7613

== ENCOUNTER 2024-04-26 09:22 | Emergency (ER) | payer MEDICARE, SELFPAY ==
[2024-04-26] VITALS (15 sets, daily range): BP systolic 90–154; BP diastolic 42–125; PULSE 52–101; RESP 16–29; TEMP 37.3–38.9; O2SAT 73–100; BMI 50.8
--- NOTE | 2024-04-26 09:32 | XR_ITS ---
FINAL REPORT CLINICAL HISTORY: sob COMPARISON: 08/04/2023 FINDINGS: A single portable view of the chest was obtained. Cardiomegaly is present, along with mild pulmonary vascular congestion. The mediastinum is within normal limits. Right base opacities are present, pneumonia versus atelectasis. The bony thorax is intact. IMPRESSION: Cardiomegaly and pulmonary vascular congestion. Right base opacities, pneumonia versus atelectasis. Reviewed, Interpreted and Dictated by Luan Torres III, MD Transcribed by Gwen Vyas Authenticated and [facility]
--- NOTE | 2024-04-26 09:36 | PC.NURSE ---
Respiratory called prior to patient arrival; at BS when pt arrived.
[2024-04-26 09:39] LABS: Adenovirus,PCR Not Detected (NotDetected); Coronavirus 229E Not Detected (NotDetected); Coronavirus NL63 Not Detected (NotDetected); Coronavirus OC43 Not Detected (NotDetected); Coronovirus HKU1,PCR Not Detected (NotDetected); Human Metapneumovirus Not Detected (NotDetected); Influenza A, PCR Not Detected (NotDetected); Influenza AH1, PCR Not Detected (NotDetected); Rhinovirus/Enterovirus Not Detected (NotDetected)
[2024-04-26 09:40] LABS: Bordetella Pertussis Not Detected (NotDetected); Chlamydophila Pneumoniae, PCR Not Detected (NotDetected); Coronavirus 19, PCR Not Detected (NotDetected); Influenza AH1, 2009 Not Detected (NotDetected); Influenza AH3,PCR Not Detected (NotDetected); Influenza B, PCR Not Detected (NotDetected); Mycoplasma Pneumoniae, PCR Not Detected (NotDetected); Parainfluenza 1, PCR Not Detected (NotDetected); Parainfluenza 2, PCR Not Detected (NotDetected); Parainfluenza 3, PCR Not Detected (NotDetected); Parainfluenza 4, PCR Not Detected (NotDetected); Respiratory Syncytial Virus Not Detected (NotDetected)
--- NOTE | 2024-04-26 09:47 | ECG_ITS ---
APPROVED REPORT Exam: Resting ECG HR:103 bpm ECG Measurements Heart Rate 103 AXES QRSd 167 QRS 204 QT 403 T 47 QTc 462 Conclusion UNCERTAIN REGULAR RHYTHM RIGHT BUNDLE BRANCH BLOCK [120+ ms QRS DURATION, UPRIGHT V1, 40+ ms S IN I/aVL/V4/V5/V6] LEFT POSTERIOR FASCICULAR BLOCK [QRS AXIS > 109, INFERIOR Q] ANTERIOR MYOCARDIAL INFARCTION , OF INDETERMINATE AGE [40+ ms Q WAVE AND/OR ST/T ABNORMALITY IN V3/V4] CRITICAL TEST RESULT UNCONFIRMED REPORT Electronically signed by : SILVINO WHITEHEAD, 04/28/2024 04:34:16
[2024-04-26 09:48] LABS: VBG Base Excess 2.1 mmol/L (-2.4-2.3); VBG HCO3 28.1 mmol/L (23-30); VBG PCO2 55.1 mmol/L (35-51); VBG PH 7.33 mmol/L (7.31-7.41); VBG Total CO2 29.8 mmol/L (23-27)
--- NOTE | 2024-04-26 09:49 | PC.NURSE ---
Daughter called for info on patient. Claudia who she was and told pt had gone to [facility].
[2024-04-26 09:50] LABS: Lactate Venous 2.4 mmol/L (0.4-2.0)
[2024-04-26 09:59] LABS: Basophils # 0.1 K/mm3 (0-0.2); Basophils % 0.5 % (0.1-2.0); Eosinophils # 0.1 K/mm3 (0.0-0.4); Eosinophils % 0.5 % (0.1-12.0); Hematocrit 35.1 % (42.0-52.0); Hemoglobin 11.8 g/dL (14.1-18.0); Lymphocytes # 0.5 K/mm3 (0.7-4.5); Lymphocytes % 2.7 % (10-50); Mean Corpuscular HGB Conc 33.5 g/dL (31.8-35.4); Mean Corpuscular Hemoglobin 35.8 pg (27.0-31.2); Mean Corpuscular Volume 106.6 fl (80-94); Mean Platelet Volume 8.3 fl (7.4-10.4); Monocytes # 0.6 K/mm3 (0.1-1.0); Monocytes % 3.4 % (1.7-9.3); Neutrophils # 15.1 K/mm3 (1.8-7.8); Neutrophils % 92.8 % (37.0-80.0); Platelet Count 203 K/mm3 (142-424); Red Blood Count 3.29 M/mm3 (4.60-6.20); Red Cell Distribution Width 19.2 % (11.5-17.5); White Blood Count 16.3 K/mm3 (4.8-10.8)
[2024-04-26 10:00] LABS: Microscopic, Urine URINE MICROSCOPIC (MICROSCOPIC)
[2024-04-26 10:01] LABS: Albumin Level 4.1 g/dl (3.5-5.0); Chloride 99 mmol/L (98-107); Potassium 5.6 mmoL/L (3.5-5.1); Sodium 141 mmol/L (136-145)
--- NOTE | 2024-04-26 10:01 | PC.NURSE ---
pt has dialysis fistula in left upper arm. pt recieves dialysis at [facility] in [place], scheduled monday, , monday.
[2024-04-26 10:03] LABS: Blood Urea Nitrogen 50 mg/dl (9-20); Creatinine Clearance Estimated 11 mL/min (50-200); Estimated Glomerular Filt Rate 7 ml/min (>60); GFR (African American) 8 ML/MIN (>60)
[2024-04-26 10:04] LABS: Alanine Aminotransferase 26 U/L (12-78); Albumin/Globulin Ratio 1.4 (1.1-1.8); Alkaline Phosphatase 134 U/L (38-126); Anion Gap 15.6 mEq/L (5-15); Aspartate Amino Transferase 29 U/L (17-59); Bilirubin,Total 0.7 mg/dl (0.2-1.3); Calcium 8.1 mg/dl (8.4-10.2); Carbon Dioxide 32 mmol/L (22.0-30.0); Globulin 2.9 g/dL (1.3-3.2); Glucose 233 mg/dl (74-100)
[2024-04-26 10:06] LABS: Appearance,Urine CLOUDY (Clear); Bilirubin,Urine Negative (Negative); Blood, Urine 3+ (Negative); Color,Urine DARK YELLOW (Yellow); Glucose,Urine (UA) Negative (Negative); Ketones,Urine Negative (Negative); Leukocyte Esterase,Urine 2+ (Negative); Nitrate,Urine POSITIVE (Negative); Protein,Urine 3+ (Negative); Urobilinogen,Urine 0.2 EU/dl (0.2)
[2024-04-26] MEDS: CEFEPIME HCL 2 GM in 0.9 % SODIUM CHLORIDE 100 ML IV (10:09)
[2024-04-26] MEDS: METHYLPREDNISOLONE SOD SUCC 125MG VIAL 125 MG IV (10:09)
[2024-04-26 10:12] LABS: MANUAL DIFFERENTIAL MANUAL DIFFERENTIAL (MANUAL DIFF)
[2024-04-26] MEDS: ACETAMINOPHEN 1,000MG/100ML VIAL 1000 MG IV (10:13)
[2024-04-26] MEDS: IPRATROPIUM/ALBUTEROL 3 ML NEB 6 ML IH (10:13)
[2024-04-26 10:19] LABS: Troponin I 1.22 ng/ml (0.00-0.034)
[2024-04-26 10:27] LABS: Bacteria,Urine 3+ /lpf; RBC,Urine 20-50 #/hpf (0-3)
[2024-04-26] MEDS: VANCOMYCIN HCL 2,500 MG in 0.9 % SODIUM CHLORIDE 250 ML 125 MG IV (10:31)
[2024-04-26 10:37] LABS: NT Pro Brain Natriuretic Pep. 34300 pg/mL (0-125)
--- NOTE | 2024-04-26 10:56 | HMH.ITSTN ---
CT PE Study on hold per ER doctor due to patient labs. Waiting for PCXR results to come back.
[2024-04-26 11:01] LABS: Lymphocytes % 10 % (10-50); Monocytes % 2 % (2-9); Neutrophils % 88 % (42-76); Total Cells Counted 100
[2024-04-26 11:02] LABS: Macrocytosis 2+; Platelet Estimate Normal
--- NOTE | 2024-04-26 11:12 | XR_ITS ---
FINAL REPORT CLINICAL HISTORY: bilateral feet injuries/wounds from previous fall FINDINGS: LEFT FOOT 2 views were obtained. 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 Severe degenerative changes are seen at the third metatarsophalangeal joint. There are mild degenerative changes elsewhere in the foot. There is a fracture of the third proximal phalanx with mild overlapping fracture fragments. There is a fracture of the proximal aspect of the fifth proximal phalanx of uncertain age. There are erosions of the distal aspect of the fifth proximal phalanx and the proximal aspect of the fifth distal phalanx. Vascular calcifications are noted. There is a plantar calcaneal spur. IMPRESSION: Postoperative changes as above. Severe degenerative changes at the third metatarsophalangeal joint. Fracture of the third proximal phalanx with mild overlapping fracture fragments. Age-indeterminate fracture of the proximal aspect of the fifth proximal phalanx. Erosions of the distal aspect of the fifth proximal phalanx and the proximal aspect of the fifth distal phalanx. Reviewed, Interpreted and Dictated by Luan Torres III, MD Transcribed by Lissa Marmolejo Authenticated and [facility]
--- NOTE | 2024-04-26 11:12 | XR_ITS ---
FINAL REPORT CLINICAL HISTORY: bilateral feet injuries wounds from previous fall FINDINGS: RIGHT FOOT 2 views were obtained. There is no acute fracture or dislocation. Severe degenerative changes are noted. There has been fusion of multiple bones of the midfoot. There is presumed fusion of the tibia and talus. A pes planus deformity is noted. There are vascular calcifications. Calcaneal spurs are noted. There is diffuse soft tissue swelling of the ankle and foot. IMPRESSION: Diffuse soft tissue swelling with no acute fracture. Severe degenerative changes. Reviewed, Interpreted and Dictated by Luan Torres III, MD Transcribed by Lissa Marmolejo Authenticated and [facility]
--- NOTE | 2024-04-26 11:23 | ED_ITS ---
Discharge Plan Disposition Patient Disposition: Xfer Other Condition: Serious Prescriptions Prescriptions: No Action furosemide [Lasix] 40 mg tablet 40 mg PO DAILY cholecalciferol (vitamin D3) 2,000 unit capsule 2,000 units PO DAILY Qty: 90 Patient Comments: TAKE 1 CAPSULE BY MOUTH ONCE DAILY (DME) blood sugar diagnostic Strip See Dose Instructions .ROUTE .MEDSUPPLY Qty: 0 Dose Instruction: As directed Rx Instructions: As directed (DME) blood-glucose meter Kit See Dose Instructions .ROUTE .MEDSUPPLY Qty: 0 Dose Instruction: As directed Rx Instructions: As directed ([facility]) insulin syringe-needle U-100 1 mL 31 gauge x 5/16 syringe See Dose Instructions .ROUTE .MEDSUPPLY Qty: 0 Dose Instruction: As directed Rx Instructions: As directed ([facility]) blood glucose control, low Solution See Dose Instructions .ROUTE .MEDSUPPLY Qty: 0 Dose Instruction: As directed Rx Instructions: As directed ([facility]) lancets 30 gauge misc See Dose Instructions .ROUTE .MEDSUPPLY Qty: 0 Dose Instruction: As directed Rx Instructions: As directed metolazone 10 mg tablet 10 mg PO DAILY calcium acetate(phosphat bind) 667 mg capsule 667 mg PO ONCE nifedipine 60 mg tablet extended release 24hr 60 mg PO DAILY carvedilol 25 mg tablet 25 mg PO BID Fiasp FlexTouch U-100 Insulin 100 unit/mL (3 mL) insulin pen SQ Eliquis 5 mg tablet 5 mg PO BID torsemide 100 mg tablet 100 mg PO DAILY Trulicity 1.5 mg/0.5 mL pen injector 1.5 mg SQ DIRECTED atorvastatin 20 mg tablet See Rx Instructions .ROUTE .COMPLEX Qty: 90 0RF Dose Instruction: Take 1 tablet by mouth once daily Rx Instructions: Take 1 tablet by mouth once daily clopidogrel [Plavix] 75 mg tablet 75 mg PO DAILY 30 Days Qty: 30 6RF budesonide-formoterol [Symbicort] 160-4.5 mcg/actuation HFA aerosol inhaler 1 puff inhalation QID PRN (Reason: shortness of breath or wheezing) 90 Days Qty: 10.2 3RF aspirin 81 MG tablet,delayed release (DR/EC) 81 mg PO DAILY Referrals Follow up/Referrals: Bello Davis MD [Primary Care Provider] - See instructions Clinical Impressions Clinical Impression: Sepsis, Acute UTI, COPD exacerbation, Volume overload, Pneumonia Stand Alone Forms Stand Alone Forms: Transfer Record - ED Print Language Print Language: Tanzanian Discharge ED Provider: Davion Hills HPI General Chief Complaint: Shortness of Breath/Dyspnea Stated Complaint: SOA Time Seen by Provider: 04/26/24 09:31 Mode of Arrival: EMS Source of Information: Patient Limitations: No Limitations Description of Symptoms (Recalled from ER Triage Doc. by RN): pt presents to ED with c/o shortness of air, hypoxia. pt arrives to ED on bipap unable to answer many questions. History of Present Illness HPI narrative: 58-year-old male presents to ED via EMS due to shortness of breath and increased work of breathing. Per EMS report call was made by family member after patient was found to be reportedly lethargic and disoriented. Past medical history of CAD, COPD, diabetes, ESRD on dialysis Monday, last dialysis treatment yesterday, patient has AV fistula. On EMS scene arrival patient had increased work of breathing, placed on CPAP with increase alertness and awareness. On arrival to ED patient currently on CPAP, following commands, moving all extremities, opens eyes to voice, does not answer all questions GCS 12. Airway breathing circulation intact on arrival, maintaining own airway with CPAP. Family was initially not available on arrival however after arrival they agree with above report from EMS. They also report patient had recent bilateral foot injury while ambulating, they are concerned for broken toes, no other reported injuries. Related Data Home Medications ?Medication ?Instructions ?Recorded ?Confirmed furosemide 40 mg tablet (Lasix) 40 mg PO DAILY diuretic 05/23/17 02/28/24 aspirin 81 mg tablet,delayed 81 mg PO DAILY HEART HEALTH 11/15/18 02/28/24 release cholecalciferol (vitamin D3) 50 2,000 units PO DAILY Supplement 11/15/18 02/28/24 mcg (2,000 unit) capsule #90 caps blood glucose control, low #0 ea 05/03/19 02/28/24 blood sugar diagnostic #0 ea 05/03/19 02/28/24 blood-glucose meter #0 ea 05/03/19 02/28/24 insulin syringe-needle U-100 1 mL #0 ea 05/03/19 02/28/24 31 gauge x 5/16 lancets 30 gauge #0 ea 05/03/19 02/28/24 calcium acetate(phosphat bind) 667 667 mg PO ONCE 12/03/21 02/28/24 mg capsule carvedilol 25 mg tablet 25 mg PO BID 12/03/21 02/28/24 metolazone 10 mg tablet 10 mg PO DAILY 12/03/21 02/28/24 nifedipine 60 mg tablet,extended 60 mg PO DAILY 12/03/21 02/28/24 release 24 hr dulaglutide 1.5 mg/0.5 mL 1.5 mg SQ DIRECTED 08/07/23 02/28/24 subcutaneous pen injector (Trulicity) torsemide 100 mg tablet 100 mg PO DAILY 08/07/23 02/28/24 apixaban 5 mg tablet (Eliquis) 5 mg PO BID 12/27/23 02/28/24 insulin aspart SQ 12/27/23 02/28/24 (niacinamide)(U-100) 100 unit/mL(3 mL) subcutaneous pen (Fiasp FlexTouch U-100 Insulin) Previous Rx's ?Medication ?Instructions ?Recorded atorvastatin 20 mg tablet See Rx Instructions .Route 06/20/22 .COMPLEX #90 tabs budesonide-formoterol HFA 160 1 puff inhalation QID PRN 03/05/24 mcg-4.5 mcg/actuation aerosol shortness of breath or wheezing 90 inhaler (Symbicort) days #10.2 grams clopidogrel 75 mg tablet (Plavix) 75 mg PO DAILY 30 days #30 tabs 03/05/24 Allergies Allergy/AdvReac Type Severity Reaction Status Date / Time Sulfa (Sulfonamide Allergy Unknown Verified 02/28/24 10:21 Antibiotics) [facility] Disclaimer: The information contained in this section may have been updated after the patient was seen, as this information can be updated by other users. Medical History (Updated 04/26/24 @ 13:20 by Davion Hills DO) Decreased diffusion capacity of lung Abnormal pulmonary function Eosinophilia Cough variant asthma Chronic cough Dyspnea on exertion Fibrosis of lung Diabetes mellitus, type 2 COPD (chronic obstructive pulmonary disease) Hypertension ESRD (end stage renal disease) Charcot's joint CAD (coronary artery disease) Surgical History History of tonsillectomy Family History Other No significant family history Social History Smoking Status: Never smoker second hand exposure: Yes alcohol intake: never counseling provided: none substance use type: denies use current occupational status: disabled Travel in the last 8 weeks: None household members: none housing: house current occupational exposures/hazards: No caffeine: No Other Medical History Have you received the Flu Vaccine for this season: Yes Have you received the Pneumonia Vaccine: Yes ROS Obtained: Yes Systems reviewed as appropriate & no additional complaints except as documented Physical Exam General General appearance: alert (Alert, opens eyes to voice, does not answer all questions, moving all extremities) and in distress (Respiratory distress) Head Head exam: atraumatic and normocephalic Eye Eye exam: Present normal appearance, PERRL and EOMI ENT ENT exam: Present normal exam and other (CPAP in place on arrival) Neck Neck exam: Present normal inspection Chest Chest inspection: Present normal inspection and symmetric chest wall rise Respiratory Respiratory exam: Present respiratory distress, wheezes and prolonged expiratory phase; Absent normal lung sounds bilaterally Expanded Respiratory Exam Location: Left: wheezes and rhonchi and Right: wheezes and rhonchi Cardiovascular Cardiovascular exam: Present normal rhythm, tachycardia and normal heart sounds Abdominal Exam Abdominal exam: Present soft, distention and normal bowel sounds; Absent tenderness exam: Present deferred Extremities Exam Extremities exam: Present other (Venous stasis changes bilateral lower extremities, prior amputation left-sided toes 1&2, left toes 3-5 with blistering, erythema) Back Exam Back exam: Present normal inspection Neurological Exam Neurological exam: Present alert (Alert on arrival, opens eyes to voice, GCS 12, moving all extremities, follows some commands, does not answer all questions, somnolent) Psychiatric Psychiatric exam: Present other (Unable to assess due to altered mental status) Skin Skin exam: Present warm, dry, intact and normal color; Absent rash HEART Score HEART Score HEART Score assessment performed?: Yes History (anamnesis): Moderately suspicious ECG: Non-specific disturbance Age: 45-65 years Risk factors: 3 or more risk factors Troponin: 1-3x normal limit HEART Score: 6 Critical Care Critical Care Time Critical Care Time: Yes Attestation: On 04/26/24, the high probability of a clinically significant, sudden or life threatening deterioration of the following system(s) required my full and direct attention, intervention and personal management. The time I documented below is in addition to time spent performing reported procedures but includes the following listed in this critical care notation. Total Time Total Critical Care Time: 60 Medical Decision Making Medical Records Medical records reviewed: Yes I reviewed the patient's medical records. Yaron Inquiry Pt receiving controlled substance: No Vital Signs Vital Signs: 04/26/24 09:23 04/26/24 10:05 04/26/24 10:13 Temperature 102.1 F H Temperature Source Axillary Pulse Rate 100 H 78 Pulse Rate [Left Radial] 101 H Respiratory Rate 19 26 H Blood Pressure 152/125 H Blood Pressure [Right Arm] 154/121 H Blood Pressure Mean 134 Blood Pressure Mean [Right Arm] 132 02 Sat by Pulse Oximetry 98 94 L Oxygen Delivery Method BiPAP 04/26/24 10:13 04/26/24 10:30 04/26/24 10:38 Temperature Temperature Source Pulse Rate 82 98 H 99 H Pulse Rate [Left Radial] Respiratory Rate 16 16 Blood Pressure 150/90 H 143/109 H Blood Pressure [Right Arm] Blood Pressure Mean 110 120 Blood Pressure Mean [Right Arm] 02 Sat by Pulse Oximetry 98 97 Oxygen Delivery Method 04/26/24 11:01 04/26/24 11:02 04/26/24 11:15 Temperature Temperature Source Pulse Rate 95 H 95 H Pulse Rate [Left Radial] Respiratory Rate 18 Blood Pressure 137/42 L Blood Pressure [Right Arm] Blood Pressure Mean 73 Blood Pressure Mean [Right Arm] 02 Sat by Pulse Oximetry 99 97 Oxygen Delivery Method CPAP 04/26/24 11:24 04/26/24 11:37 04/26/24 11:46 Temperature Temperature Source Pulse Rate 91 H 52 L 90 Pulse Rate [Left Radial] Respiratory Rate Blood Pressure 90/44 L 113/54 L Blood Pressure [Right Arm] Blood Pressure Mean Blood Pressure Mean [Right Arm] 02 Sat by Pulse Oximetry 96 73 L 90 L Oxygen Delivery Method 04/26/24 12:00 04/26/24 12:30 Temperature Temperature Source Pulse Rate 89 89 Pulse Rate [Left Radial] Respiratory Rate Blood Pressure 119/42 L 127/51 L Blood Pressure [Right Arm] Blood Pressure Mean Blood Pressure Mean [Right Arm] 02 Sat by Pulse Oximetry 93 L 100 Oxygen Delivery Method Room Air Lab Data Labs: Lab Results 04/26/24 09:20: Chlamy pneumoniae PCR Not detected, Adenovirus (PCR) Not detected, B. pertussis DNA (PCR) Not detected, Coronavirus OC43 (PCR) Not detected, Coronavirus HKU1 (PCR) Not detected, Coronavirus 229E (PCR) Not detected, SARS-CoV-2 (PCR) Not detected, Coronavirus NL63 (PCR) Not detected, Human Metapneumovir PCR Not detected, Influenza A (H1) PCR Not detected, Influ A (H1N1/09) PCR Not detected, Influenza A (H3) PCR Not detected, Influenza Type A (PCR) Not detected, Influenza Type B (PCR) Not detected, M. pneumoniae (PCR) Not detected, Parainfluenza 1 (PCR) Not detected, Parainfluenza 2 (PCR) Not detected, Parainfluenza 3 (PCR) Not detected, Parainfluenza 4 (PCR) Not detected, RSV (PCR) Not detected, Entero/Rhino (PCR) Not detected 04/26/24 09:32: VBG pH 7.33, VBG pCO2 55.1 H, VBG pO2 41.0 H, VBG HCO3 28.1, VBG Total CO2 29.8 H, VBG O2 Saturation 72.0 H, VBG Base Excess 2.1, VBG Lactic Acid 2.4 H 04/26/24 09:40: WBC 16.3 H, RBC 3.29 L, Hgb 11.8 L, Hct 35.1 L, MCV 106.6 H, MCH 35.8 H, MCHC 33.5, RDW 19.2 H, Plt Count 203, MPV 8.3, Neut % (Auto) 92.8 H, L ymph % (Auto) 2.7 L, [place] % (Auto) 3.4, Eos % (Auto) 0.5, Baso % (Auto) 0.5, N eut # (Auto) 15.1 H, Lymph # (Auto) 0.5 L, [place] # (Auto) 0.6, Eos # (Auto) 0.1, Baso # (Auto) 0.1, Total Counted 100, Neutrophils % (Manual) 88 H, Lymphocytes % (Manual) 10, Monocytes % (Manual) 2, Platelet Estimate Normal, Macrocytosis 2+, Sodium 141, Potassium 5.6 H, Chloride 99, Carbon Dioxide 32 H, Anion Gap 15.6 H, BUN 50 H, Creatinine 8.30 H, Estimated Creat Clear 11, Estimated GFR 7 L*, Est GFR ( Amer) 8 L*, Glucose 233 H, Calcium 8.1 L, Total Bilirubin 0.7, AST 29, ALT 26, Alkaline Phosphatase 134 H, Troponin I 1.22 H, NT-Pro-B Natriuret Pep 41810 H, Total Protein 7.0, Albumin 4.1, Globulin 2.9, Albumin/Globulin Ratio 1.4, HIV 1&2 Antibody Rapid Nonreactive 04/26/24 09:57: Urine Color Dark yellow, Urine Appearance Cloudy, Urine pH 6.0, Ur Specific [place] 1.020, Urine Protein 3+ A, Urine Glucose (UA) Negative, Urine Ketones Negative, Urine Blood 3+ A, Urine Nitrate Positive A, Urine Bilirubin Negative, Urine Urobilinogen 0.2, Ur Leukocyte Esterase 2+ A, Urine RBC 20-50, Urine WBC 10-20, Ur Squamous Epith Cells 3-5, Ur Transition Epith Cell 3-5, Urine Bacteria 3+ 04/26/24 11:36: Troponin I 1.59 H 04/26/24 11:39: VBG pH 7.31, VBG pCO2 53.2 H, VBG pO2 43.4 H, VBG HCO3 26.1, VBG Total CO2 27.7 H, VBG O2 Saturation 76.1 H, VBG Base Excess -0.2, VBG Lactic Acid 1.7 04/26/24 09:40 04/26/24 09:40 Response Orders (Tests/Meds): ED MEDICATIONS Generic Name Dose Route Start Last Admin Trade Name Freq PRN Reason Stop Dose Admin Sodium Chloride 10 ml 04/26/24 09:32 Sodium Chloride 0.9% 10ml Flush Syringe IV 05/26/24 09:31 NEEDED PRN Maintain IV Site Sodium Chloride 10 ml 04/26/24 11:43 Sodium Chloride 0.9% 10ml Vial IV 05/26/24 11:42 NEEDED PRN to Dilute Lorazepam inj Discontinued Medications Generic Name Dose Route Start Last Admin Trade Name Freq PRN Reason Stop Dose Admin Acetaminophen 1,000 mg 04/26/24 09:41 04/26/24 10:13 Acetaminophen 1,000mg/100ml Vial IV 04/26/24 09:42 1,000 mg ONCE ONE Administration Albuterol/Ipratropium 6 ml 04/26/24 09:32 04/26/24 10:13 Ipratropium/Albuterol 3 Ml [facility] 04/26/24 09:33 6 ml ONCE ONE Administration Albuterol/Ipratropium 3 ml 04/26/24 12:24 04/26/24 12:35 Ipratropium/Albuterol 3 Ml [facility] 04/26/24 12:25 3 ml ONCE ONE Administration Ceftriaxone Sodium 1 gm/ 50 mls @ 100 mls/hr 04/26/24 09:45 04/26/24 10:10 Sodium Chloride IV 05/06/24 09:44 Not Given Q[facility]H [facility] Cefepime HCl 2 gm/ Sodium 100 mls @ 200 mls/hr 04/26/24 09:53 04/26/24 10:09 Chloride IV 04/26/24 10:22 200 mls/hr ONCE ONE Administration Vancomycin HCl 2,500 mg/ 250 mls @ 125 mls/hr 04/26/24 10:00 04/26/24 10:31 Sodium Chloride IV 04/26/24 11:59 125 mls/hr ONCE ONE Administration Lorazepam 2 mg 04/26/24 11:43 04/26/24 11:45 Lorazepam 2mg/Ml Vial IV 04/26/24 11:44 2 mg ONCE ONE Administration Methylprednisolone Sodium Succinate 125 mg 04/26/24 09:32 04/26/24 10:09 Methylprednisolone Sod Succ 125mg Vial IV 04/26/24 09:33 125 mg ONCE ONE Administration Miscellaneous 1 each 04/26/24 10:00 Vancomycin Consult Request NOTAPPLIC 05/26/24 09:59 CONSULT PHARMACY [facility] ORDERS Category Date Time Status XR chest portable Stat Exams 04/26/24 09:32 Completed XR foot LT 2V Stat Exams 04/26/24 11:12 Completed XR foot RT 2V Stat Exams 04/26/24 11:12 Completed Complete Blood Count Auto Diff Stat Lab 04/26/24 09:40 Completed Comprehensive Metabolic Panel Stat Lab 04/26/24 09:40 Completed Full Resp Panel w/COVID ([facility]) Routine Lab 04/26/24 09:20 Completed HIV (1&2) Antibody Rapid Stat Lab 04/26/24 09:40 Completed Hep C Ab with Reflex to RNA Stat Lab 04/26/24 09:40 Received NT Pro Brain Natriuretic Pep. Stat Lab 04/26/24 09:40 Completed Troponin I Q3H Lab 04/26/24 11:36 Completed Troponin I Q3H Lab 04/26/24 15:45 Ordered Troponin I Stat Lab 04/26/24 09:40 Completed Urinalysis and Microscopic Stat Lab 04/26/24 09:57 Completed Blood Culture Stat Micro 04/26/24 10:00 Received Urine Culture Stat Micro 04/26/24 09:57 Received VBG [Venous Blood Gas] Stat RT 04/26/24 11:39 Completed Venous Blood Gas Stat RT 04/26/24 09:32 Completed ECG Data Tracing #1: Attestation: I reviewed this ECG and interpreted as documented below: ECG Narrative: Regular rhythm, large amount of artifact, right bundle branch block noted, no noted ST elevation Tracing #2: Attestation: I reviewed this ECG and interpreted as documented below: ECG Narrative: Normal sinus rhythm, right bundle branch block, no noted ST elevation, no noted peaked T waves. MDM Narrative Medical Decision Narrative: Patient with history and exam per above presenting for evaluation of shortness of breath, respiratory distress Diagnoses considered include COPD exacerbation, CHF exacerbation, CAD, volume overload, pneumonia, sepsis, PE ED workup and treatment included: As above Labs were independently interpreted by me, significant for Mild tenderness to palpation at area of initial VBG with no noted acidosis, elevated lactate at 2.4, patient has elevated CO2 likely secondary to chronic retention from COPD. Mild hyperkalemia at 5.6, no noted changes on EKG, likely secondary to ESRD. Mild elevation of anion gap at 15.6, creatinine 8.3, baseline for patient from prior records, GFR 7. Deferring CT at this time pending chest x-ray with lower suspicion for pulmonary embolism versus pneumonia, COPD exacerbation, CHF exacerbation. Glucose with no noted hypoglycemia, elevated troponin initially at 1.22 ng likely secondary to ESRD however obtaining repeat given undifferentiated source of patient's symptoms at this time?repeat pending. BNP 34,000, no prior levels available for review. Given concern for volume overload and CHF exacerbation holding fluids. Proceeding with antibiotics for sepsis concern as well as infectious process. Patient has leukocytosis, stable chronic anemia likely secondary to chronic disease. Nasopharyngeal respiratory panel negative. UTI noted on urinalysis. Repeat troponin 1.59, delta nonsignificant at this time likely secondary to chronic disease as well as demand ischemia from prior hypoxia. Repeat VBG with improved lactic acid down to 1.7. Imaging was independently visualized and interpreted by me, significant for mild pulmonary vascular congestion, opacity noted right lung field, concern for pneumonia as well as mild fluid overload. Right foot x-ray with no noted acute fracture, soft tissue swelling noted, noted degenerative changes chronic. Left foot x-ray with noted amputation of toes 1 and 2, fracture of third toe, fracture fifth toe, soft tissue swelling, chronic degenerative changes noted. Please refer to radiology report for full details. My clinical impression at this time is most consistent with Sepsis, COPD exacerbation, volume overload, pneumonia. Discussed patient with Dr. Ramirez at [facility] for transfer as patient needs admission as well as dialysis. Patient accepted to [facility] under Dr. Holly to their ICU. Patient transferred to [place] via EMS, advanced life support crew. Patient with stable vitals at time of transfer. I discussed my clinical impression with patients family and answered all questions. At this time, the evidence for any other entities in the differential is insufficient to warrant any further testing or ED observation. This was explained to the patient. The patient was advised that persistent or worsening symptoms require further evaluation.
--- NOTE | 2024-04-26 11:35 | ECG_ITS ---
APPROVED REPORT Exam: Resting ECG HR:96 bpm ECG Measurements Heart Rate 96 AXES MD 197 P 39 QRSd 154 QRS 156 QT 371 T 31 QTc 425 Conclusion SINUS RHYTHM RIGHT BUNDLE BRANCH BLOCK [120+ ms QRS DURATION, UPRIGHT V1, 40+ ms S IN I/aVL/V4/V5/V6] LEFT POSTERIOR FASCICULAR BLOCK [QRS AXIS > 109, INFERIOR Q] ABNORMAL ECG UNCONFIRMED REPORT Electronically signed by : SILVINO WHITEHEAD, 04/28/2024 04:32:43
[2024-04-26 11:36] LABS: HIV (1&2) Antibody Rapid NONREACTIVE (NONREACTIVE)
[2024-04-26 11:44] LABS: Lactate Venous 1.7 mmol/L (0.4-2.0); VBG Base Excess -0.2 mmol/L (-2.4-2.3); VBG HCO3 26.1 mmol/L (23-30); VBG Oxygen Saturation 76.1 % (50-70); VBG PCO2 53.2 mmol/L (35-51); VBG PH 7.31 mmol/L (7.31-7.41); VBG PO2 43.4 mmol/L (28-40); VBG Total CO2 27.7 mmol/L (23-27)
[2024-04-26] MEDS: LORazepam 2MG/ML VIAL 2 MG IV (11:45)
--- NOTE | 2024-04-26 11:47 | PC.NURSE ---
Called [facility] about getting this pt transferred to [facility] for Dialysis. [facility] advised they would reach out and call us back
[2024-04-26 12:06] LABS: Troponin I 1.59 ng/ml (0.00-0.034)
--- NOTE | 2024-04-26 12:06 | PC.NURSE ---
Dr. Hills notified of critical troponin
--- NOTE | 2024-04-26 12:08 | PC.NURSE ---
on phone with [facility]
[2024-04-26] MEDS: IPRATROPIUM/ALBUTEROL 3 ML NEB IH (12:35)
--- NOTE | 2024-04-26 13:08 | PC.NURSE ---
attempted to call report to [facility] icu, [phone]. TRN spoke with teja in the ICu at [facility]. she states that the nurse taking the pt stepped off the floor. teja states that there is a patient in the room currently, that pt needs to be moved out, then the room cleaned, nurse taking pt at [facility] will call back when room is cleaned and ready for pt to be accepted to room.
[2024-04-26 13:50] LABS: Reflex Lactic Add Lactic Reflex
--- NOTE | 2024-04-26 13:56 | PC.NURSE ---
report called to federico at [facility]. they are awaiting for the bed and room to be cleaned for pt to be received.
--- NOTE | 2024-04-26 14:32 | PC.NURSE ---
federico called from [facility] icu, bed is ready for pt transfer. [facility] ems called and notified of pt transfer.
--- NOTE | 2024-04-26 14:35 | PC.NURSE ---
Called EMS for transport to [facility]
--- NOTE | 2024-04-26 21:22 | PC.NURSE ---
Spoke with MELISSA Frost at [facility] ICU to report positive blood cultures on patient who was transferred to their facility.
--- NOTE | 2024-04-27 08:19 | PC.NURSE ---
MARCELO spoke with federico at [facility] ICU. blood culture results faxed to them for JUNIOR JACOB.
[2024-04-27 09:20] LABS: HCV Ab Non Reactive (Non Reactive)
--- NOTE | 2024-04-28 08:19 | PC.NURSE ---
final bc results faxed to [facility]
== END 2024-04-26 15:15 | disposition other institution (70) ==
PROVIDERS: Emergency Provider Student in an Organized Health Care Education/Training Program; PCP Family Medicine
DX: J18.9 Pneumonia, unspecified organism (principal); E87.70 Fluid overload, unspecified; J44.1 Chronic obstructive pulmonary disease with (acute) exacerbation; N39.0 Urinary tract infection, site not specified; A41.9 Sepsis, unspecified organism; R06.02 Shortness of breath; R09.02 Hypoxemia; R53.83 Other fatigue; R41.82 Altered mental status, unspecified
CPT/HCPCS: 71045; 73620; 80053; 81001; 82803; 83880; 84484; 85007; 85025; 85027; 86803; 87040; 87077; 87086; 87186; 87389; 87633; 93005; 96365; 96366; 96367; 96374; 96375; 99291; J0131; J2060; J2919; J3370; J7620

== ENCOUNTER 2024-05-01 19:22 | Emergency (ER) | payer MEDICARE, SELFPAY ==
[2024-05-01 19:22] VITALS: RESP 24; TEMP -17.7; TEMP 0; O2SAT 0; BMI 47.5
[2024-05-01 20:07] LABS: VBG Base Excess -19.5 mmol/L (-2.4-2.3); VBG Oxygen Saturation 15.5 % (50-70); VBG PCO2 97.8 mmol/L (35-51); VBG PO2 21.6 mmol/L (28-40)
--- NOTE | 2024-05-01 20:59 | PC.NURSE ---
CODE BLUE NOTE: 1919- pt arrived via EMS, CPR in progreess, 3 amps of epi given, last epi given @1917 1920- pt transferred to ED stretcher- CPR continued. 1921 epi 1mg given. FSBS 180 1922 pulse check- no pulse PEA, CPR continued. 20G IV inserted in the RAC 1924- epi 1mg given. 1924- Pulse check- no pulse, undetected rhythm d/t pad placement. CPR continued [id number]- pulse check- no pulse, PEA. Continued CPR. etco2 72 1927- epi 1mg given 1929 pulse check - no pulse, asystole, CPR continued 1930 epi 1mg given 1931- Pulse check- no pulse, asystole, continued CPR. 1931- Pt intubated by Renan carrera 7.0ETT 26cm @ the lip. color change noted, BBS auscultated. 1932- ETCO2 39 0790-9912- pulse check- no pulse , asystole, continued CPR, epi 1mg given 1935- 50 meq bicarb given 1936- Pulse check- no pulse, asystole, continued CPR 1937- epi 1mg given 1938- pulse check, no pulse, asystole, continued CPR 1940 epi 1mg given 1941- pulse check- no pulse, asystole, continued CPR 1943- pulse check- no pulse, asystole, continued CPR 1943- epi 1mg given 1945- pulse check- no pulse, asystole, continued CPR. Central line placed by MD Escobar 1946- calcium chloride amp, amp d50, 1947- epi 1mg given, bicarb 50 meq given - pulse check, no pulse, asystole, continued CPR 1950- epi 1mg given 1950- pulse check- no pulse, asystole, continued CPR 1950- 5 units regular insulin given 1952- pulse check- no pulse, asystole, continued CPR 1953- epi 1 mg given 1954- pulse check, no pulse, asystole. Stop CPR per MD Escobar. TOD 2005- paged exhibit carpenter through dispatch 2029- called [facility]- reported 2048- M Rodríguez - exhibit carpenter released pt 2051- updated [facility] that pt was released by exhibit carpenter 2103- [facility] called and released pt to home - Juan Carlos pt let with home staff @9 [facility] coordinator- Pita Platt
--- NOTE | 2024-05-01 21:41 | HMH.EDGENADL ---
Discharge Plan Disposition Patient Disposition: Date/Time: 05/01/24 21:45 Clinical Impressions Clinical Impression: Cardiac arrest Discharge ED Provider: Wally Escobar Adult HPI General Chief complaint: Cardiac Arrest/CPR Stated complaint: Cardiac Arrest Time Seen by Provider: 05/01/24 19:25 Mode of Arrival: EMS Source of Information: EMS Limitations: code blue Description of Symptoms (Recalled from ER Triage Doc. by RN): rashaun almanza History of Present Illness HPI narrative: Patient is a 58-year-old male who presents via EMS with CPR ongoing. History obtained by EMS reveals that patient was recently discharged from outside facility. He was in his car and was experiencing shortness of breath and altered mental status. Following EMS arrival, patient reportedly lost pulses, prompting CPR to be initiated. ACLS had been ongoing for several minutes prior to arrival. Previous therapies included oral airway as well as right tibial intraosseous line. 1 dose of epinephrine had been administered. Medical history limited secondary to acuity of condition as well as inability to obtain history directly from patient. No family at bedside upon arrival to the emergency department. Related Data Home Medications ?Medication ?Instructions ?Recorded ?Confirmed furosemide 40 mg tablet (Lasix) 40 mg PO DAILY diuretic 05/23/17 02/28/24 aspirin 81 mg tablet,delayed 81 mg PO DAILY HEART HEALTH 11/15/18 02/28/24 release cholecalciferol (vitamin D3) 50 2,000 units PO DAILY Supplement 11/15/18 02/28/24 mcg (2,000 unit) capsule #90 caps blood glucose control, low #0 05/03/19 02/28/24 blood sugar diagnostic #0 05/03/19 02/28/24 blood-glucose meter #0 ea 05/03/19 02/28/24 insulin syringe-needle U-100 1 mL #0 james 05/03/19 02/28/24 31 gauge x 5/16 lancets 30 gauge #0 james 05/03/19 02/28/24 calcium acetate(phosphat bind) 667 667 mg PO ONCE 12/03/21 02/28/24 mg capsule carvedilol 25 mg tablet 25 mg PO BID 12/03/21 02/28/24 metolazone 10 mg tablet 10 mg PO DAILY 12/03/21 02/28/24 nifedipine 60 mg tablet,extended 60 mg PO DAILY 12/03/21 02/28/24 release 24 hr dulaglutide 1.5 mg/0.5 mL 1.5 mg SQ DIRECTED 08/07/23 02/28/24 subcutaneous pen injector (Trulicity) torsemide 100 mg tablet 100 mg PO DAILY 08/07/23 02/28/24 apixaban 5 mg tablet (Eliquis) 5 mg PO BID 12/27/23 02/28/24 insulin aspart SQ 12/27/23 02/28/24 (niacinamide)(U-100) 100 unit/mL(3 mL) subcutaneous pen (Fiasp FlexTouch U-100 Insulin) Previous Rx's ?Medication ?Instructions ?Recorded atorvastatin 20 mg tablet See Rx Instructions .Route 06/20/22 .COMPLEX #90 tabs budesonide-formoterol HFA 160 1 puff inhalation QID PRN 03/05/24 mcg-4.5 mcg/actuation aerosol shortness of breath or wheezing 90 inhaler (Symbicort) days #10.2 grams clopidogrel 75 mg tablet (Plavix) 75 mg PO DAILY 30 days #30 tabs 03/05/24 Allergies Allergy/AdvReac Type Severity Reaction Status Date / Time Sulfa (Sulfonamide Allergy Unknown Verified 02/28/24 10:21 Antibiotics) [facility] Disclaimer: The information contained in this section may have been updated after the patient was seen, as this information can be updated by other users. Medical History (Updated 05/01/24 @ 23:16 by Ale Zhu RN) Decreased diffusion capacity of lung Abnormal pulmonary function Eosinophilia Cough variant asthma Chronic cough Dyspnea on exertion Fibrosis of lung Diabetes mellitus, type 2 COPD (chronic obstructive pulmonary disease) Hypertension ESRD (end stage renal disease) Charcot's joint CAD (coronary artery disease) Surgical History History of tonsillectomy Family History Other No significant family history Social History Smoking Status: Unknown if ever smoked second hand exposure: Yes alcohol intake: never counseling provided: none substance use type: denies use current occupational status: disabled Travel in the last 8 weeks: None household members: none housing: house current occupational exposures/hazards: No caffeine: No Other Medical History Have you received the Flu Vaccine for this season: Yes Have you received the Pneumonia Vaccine: Yes ROS Obtained: Yes other As per HPI Physical Exam General General appearance: other Comment: Unresponsive, pupils fixed and dilated Head Head exam: atraumatic and normocephalic Neck Neck exam: Present normal inspection Chest Chest inspection: Present other (Apneic, supraglottic airway in place) Respiratory Respiratory exam: Present normal lung sounds bilaterally Cardiovascular Cardiovascular exam: Present other (No palpable pulse, no cardiac activity) Abdominal Exam Abdominal exam: Present soft Neurological Exam Neurological exam: Present other (GCS 3 T) Other Other exam information: Left AV fistula on arm Medical Decision Making Medical Records Medical records reviewed: Yes I reviewed the patient's medical records. Screening: Per USPSTF and CDC recommendations, given the prevalence of disease in our region, it is our hospital?s policy to screen for HIV and viral Hepatitis for all patients aged 18 and over and those with ongoing risk factors. Yaron Inquiry Pt receiving controlled substance: No Vital Signs: 05/01/24 19:22 05/01/24 23:14 Temperature 0 F L 0 F L Temperature Source Oral Pulse Rate 0 L Respiratory Rate 24 0 L Blood Pressure 0/0 L 02 Sat by Pulse Oximetry 0 L Lab Data Lab Results 05/01/24 19:35: VBG pH 6.80 L, VBG pCO2 97.8 H, VBG pO2 21.6 L, VBG HCO3 15.0 L, VBG Total CO2 18.0 L, VBG O2 Saturation 15.5 L, VBG Base Excess -19.5 L, VBG Lactic Acid 12.0 H Orders (Tests/Meds): ORDERS Category Date Time Status VBG [Venous Blood Gas] Stat RT 05/01/24 19:35 Completed Medical Decision Narrative: Patient with history and exam per above arriving to the emergency department with CPR ongoing. Differential diagnosis broad at this time but includes toxins, tamponade, tension pneumothorax, thrombosis hypovolemia hypoxia acidosis hypokalemia hypothermia. Patient was emergently intubated to establish definitive airway. Several rounds of ACLS were performed and central line was placed to establish access. Medications administered throughout ACLS care included epinephrine, sodium bicarb, calcium gluconate, insulin, dextrose. Patient with bilateral breath sounds, euthermia, difficult cardiac windows on [id number] ultrasound however no appreciable tamponade or other addressable reversible cause of arrest. VBG revealed acidosis and hyperkalemia which was treated with aforementioned medications. Patient had been in cardiac arrest for extended period of time before arrival to the emergency department and approximately 30 to 40 minutes of ACLS care in the emergency department was performed. At this time, neuro prognostication extremely poor and all reversible causes of arrest were considered and further treatment was thought to be highly futile. Patient never had shockable rhythm while in the emergency department. No palpable pulses were obtained at any point during ACLS. At this time ACLS was terminated and patient was pronounced . Procedures Intubation Mallampati Score:: Class IV sedative: none ET Tube Size: 7 ET Tube Uncuffed: No Tube Placement Confirmation: visualized tube passing through cords and equal breath sounds bilaterally Central Line Placement Right Femoral: Time Out Performed: Yes Prep: mask and gloves Ultrasound Used for Placement: Yes Central Line Lumen Inserted: triple Post Procedure: good blood return Critical Care Critical Care Time Critical Care Time: Yes Attestation: On 05/01/24, the high probability of a clinically significant, sudden or life threatening deterioration of the following system(s) required my full and direct attention, intervention and personal management. The time I documented below is in addition to time spent performing reported procedures but includes the following listed in this critical care notation. Total Time Total Critical Care Time: 40
[2024-05-01 23:14] VITALS: BP 0/0; PULSE 0; RESP 0; TEMP -17.7; TEMP 0; O2SAT 0
== END 2024-05-01 21:45 | disposition expired ==
LOC: ER 19:28
PROVIDERS: Emergency Provider Emergency Medicine; PCP Internal Medicine Adolescent Medicine
DX: I46.9 Cardiac arrest, cause unspecified (principal)
CPT/HCPCS: 82803; 92950; 96374; 96375; 99291; C1751; J0171